=== PATIENT | female | born 1990 | race Caucasian/White ===

== ENCOUNTER 2021-09-10 15:36 | Inpatient (IN) | payer OTHER, SELFPAY ==
[~2021-09-10] VITALS: Ht 157.5 cm; Wt 51.7 kg
[2021-09-10] MEDS: NACL 0.9% 1,000 ML IV SCH (03:55)
[2021-09-10 15:41] VITALS: BP 148/103
[2021-09-10] MEDS ORDERED: NACL 0.9% 1,000 ML IV SCH (16:20)
[2021-09-10] MEDS ORDERED: ONDANSETRON 4 MG/2 ML VIAL IVP ONE (16:20)
--- NOTE | 2021-09-10 16:27 | NUR ---
DC PLANNIN YRS OLD FEMALE PATIENT WAS ADMITTED FROM HOME WITH A DX OF DKA. PATIENT HAS A HX OF DM ON LANTUS, ANION GAP 38.5. ADMITTED TO ICU FOR INSULIN DRIP. CONSULTED WITH CRITICAL CARE. DC PLAN TO DOWN GRADE TO TELE WHEN AG CLOSED. CM TO FOLLOW Addendum: 09/13/21 at 1647 by Ivania Inman RN DC PLANNING: PATIENT OFF INSULIN DRIP TRANSFERRED TO TELE AG 11.[address] BOWEN SOURCING SPECIALIST TO SEE PATIENT. CONTINUE IV ABX LEVAQUIN AND FLAGYL. DC PLAN TO GO HOME WHEN STABLE CM TO FOLLOW Addendum: 09/17/21 at 1132 by Malika Vidal CM DC PLANNING: CM SPOKE WITH THE PATIENT AT BEDSIDE, STATES THAT SHE AND HER MOTHER ARE CURRENTLY SLEEPING ON THE COUCH OF A FRIEND X 1 MONTH. WILL BE STAYING IN A MOTEL ROOM [facility] PATIENT IS DECLINING HOME HEALTH FOR WOUND CARE. SHE STATES THAT THE WOUND CARE NURSE PEMA HAS ALREADY SHOWED HER TODAY AND THAT SHE HAS WOUND ARE SUPPLIES FROM A PREVIOUS VISIT AND THIS VISIT. SHE STATES THAT SHE AND HER MOTHER ARE COMFORTABLE AND CAPABLE OF DOING HER WOUND CARE, STATED AGAIN THAT SHE DOESN'T WANT HOME HEALTH THE PEOPLE SHE IS STAYING WITH WOULDN'T LIKE IT. CM WILL FOLLOW FOR NEEDS.
[2021-09-10] MEDS ORDERED: NACL 0.9% 1,000 ML IV ONE (16:50)
[2021-09-10 17:19] LABS: HEMATOCRIT 40.7 % (36-48); HEMOGLOBIN 11.9 g/dL (12.0-16.0); MEAN CORPUSCULAR HEMOGLOBIN 28 pg (27-31); MEAN CORPUSCULAR HGB CONC 29 g/dL (33-37); MEAN CORPUSCULAR VOLUME 97.1 fL (80-94); RED BLOOD CELL COUNT(AUTO) 4.19 MIL/uL (4.20-5.40); RED CELL DISTRIBUTION WIDTH 15.1 % (11.6-13.7)
--- NOTE | 2021-09-10 17:21 | NUR ---
DR MARTIN AT BEDSIDE FOR IV VIA ULTRASOUND.
[2021-09-10 17:42] LABS: ALBUMIN 1.6 g/dL (3.4-5.0); POTASSIUM 5.7 mmol/L (3.5-5.1); TOTAL BILIRUBIN 0.3 mg/dL (0.0-1.0)
[2021-09-10 17:52] LABS: ANION GAP 38.5 (8-16)
[2021-09-10 17:54] LABS: CARBON DIOXIDE 3.2 mmol/L (21-32)
--- NOTE | 2021-09-10 18:02 | NUR ---
31 Y/O F C/O GENERAL WEAKNESS, ANIETY, SOB FOR 4DAYS. PT HS A PRESENT COUGH, BUT NO FEVER. PT BLOOD GLUCOSE TO HIGH UPON ARIVAL.
[2021-09-10] MEDS ORDERED: ONDANSETRON 4 MG/2 ML VIAL ONE (18:09)
[2021-09-10] MEDS ORDERED: INSULIN REGULAR, HUMAN 100 UNIT in NACL 0.9% 100 ML IV ONE ×2 (18:15)
[2021-09-10] MEDS ORDERED: INSULIN REGULAR, HUMAN 100 UNIT/ML VIAL IVP ONE (18:15)
[2021-09-10] MEDS ORDERED: MORPHINE SULFATE 4 MG/ML SYR IVP ONE (18:15)
--- NOTE | 2021-09-10 18:24 | NUR ---
YULI SWAB WAS DONE AND TAKEN TO THE LAB.
[2021-09-10 18:51] LABS: WHITE BLOOD COUNT (AUTO) 26.4 K/uL (4.8-10.8)
[2021-09-10 18:52] LABS: PLATELET COUNT (AUTO) 1639 K/uL (140-450)
[2021-09-10 18:56] LABS: APPEARANCE,URINE CLEAR (CLEAR); BILIRUBIN,URINE NEGATIVE (NEGATIVE); BLOOD, URINE 3+ (NEGATIVE); LEUKOCYTE ESTERASE ,URINE TRACE (NEGATIVE); NITRITE, URINE NEGATIVE (NEGATIVE); UGLUCOSE 3+ (NEGATIVE)
[2021-09-10] MEDS ORDERED: VANCOMYCIN 1,000 MG in DEXTROSE 5% 250 ML IV ONE (19:05)
[2021-09-10] MEDS ORDERED: PIPERACILLIN/TAZOBACTAM 3.375 GM in DEXTROSE 5% 50 ML IV ONE (19:05)
--- NOTE | 2021-09-10 19:15 | NUR ---
RECEIVED REPORT FROM JAMAAL KAM FOR CONTINUITY OF CARE
--- NOTE | 2021-09-10 19:22 | NUR ---
GAVE REPORT TO KATHARINE SANTOS.
--- NOTE | 2021-09-10 19:22 | NUR ---
Contact Kendra mother of patient through #[phone]
[2021-09-10 19:27] LABS: BASOPHILS % (MANUAL) 0 % (0-2); EOSINOPHILS % (MANUAL) 0 % (0-4); LYMPHOCYTES % (MANUAL) 4 % (20-46); MONOCYTES % (MANUAL) 2 % (5-12)
--- NOTE | 2021-09-10 19:37 | NUR ---
PATIENT TO XR VIA GURNEY
[2021-09-10 19:40] LABS: COLOR,URINE STRAW (YELLOW); RBC,URINE 0-5 /HPF (0-5); WBC,URINE 20-60 /HPF (0-5); YEAST,URINE Moderate /HPF (None Seen)
[2021-09-10] MEDS ORDERED: ACETAMINOPHEN 325 MG TAB PO PRN (19:50)
--- NOTE | 2021-09-10 19:53 | NUR ---
sent a message to Meredith GOSS for diet for patient.
[2021-09-10] MEDS ORDERED: DEXTROSE 50% 50 ML SYR IVP PRN (19:55)
[2021-09-10] MEDS ORDERED: INSULIN REGULAR, HUMAN 100 UNIT in NACL 0.9% 100 ML IV SCH ×2 (19:55)
--- NOTE | 2021-09-10 20:00 | NUR ---
Unable to medicate patient through line as insulin drip going through line. difficulty finding a vein on patient, requesting MD Mcdonough to order a PICC line.
--- NOTE | 2021-09-10 20:07 | NUR ---
Requested orders on a picc line from MD Mcdonough and agreed
--- NOTE | 2021-09-10 20:09 | NUR ---
Called limehouse worker for a PICC line on for a patient
[2021-09-10] MEDS: BLOOD GLUCOSE MONITORING 1 DEV DEV FS SCH ×4 (20:14→23:18)
[2021-09-10 20:33] LABS: FREE T4 (FREE THYROXINE) 0.72 ng/dL (0.76-1.46); THYROID STIMULATING HORMONE 1.61 uIU/mL (0.34-3.74)
--- NOTE | 2021-09-10 21:41 | NUR ---
Livan Mcdonough MD-- will call back shortly
--- NOTE | 2021-09-10 21:50 | NUR ---
Received call from MD chapman to report findings on VBG-- orders received for VBG Q4hrs, and NS 1000ml at 125ml.
[2021-09-10] MEDS: MORPHINE SULFATE 2 MG/ML SYR IVP PRN (23:17)
[2021-09-10] MEDS: ONDANSETRON 4 MG/2 ML VIAL IVP PRN (23:17)
--- NOTE | 2021-09-10 23:52 | NUR ---
Patient appears to be resting comfortably in bed-- low fowlers, eyes closed. Vital Signs within normal limits. Respirations even and unlabored. No signs of distress noted. Patient placed on environmental monitoring technician, safety measures are in place, and will continue to monitor patient. Insulin drip running through IV
[2021-09-11] VITALS (10 sets, daily range): BP systolic 15–169; BP diastolic 74–98
[2021-09-11] MEDS: BLOOD GLUCOSE MONITORING 1 DEV DEV FS SCH ×25 (00:06→23:55)
[2021-09-11 00:57] LABS: ANION GAP 18.9 (8-16); CARBON DIOXIDE 16.6 mmol/L (21-32); CREATININE 1.4 mg/dL (0.6-1.3); POTASSIUM 4.5 mmol/L (3.5-5.1)
[2021-09-11 00:59] LABS: PROTHROMBIN TIME 14.4 secs (10.8-13.4)
[2021-09-11 01:02] LABS: PHOSPHORUS 4.1 mg/dL (2.5-4.9)
--- NOTE | 2021-09-11 02:02 | NUR ---
Patient appears to be resting comfortably in bed. Vital Signs within normal limits. Respirations even and unlabored. No signs of distress noted. 0/10 pain. Safety measures are in place, patient on the monitors, and will continue to monitor patient.
[2021-09-11] MEDS ORDERED: VANCOMYCIN 1,000 MG VIAL ONE (02:04)
--- NOTE | 2021-09-11 02:15 | NUR ---
Pt report given to Amina SANTOS. Transfer of care at this time during lunch break
[2021-09-11] MEDS ORDERED: BIOT5CAP PO (02:29)
[2021-09-11] MEDS ORDERED: TRAZ-343 PO (02:29)
[2021-09-11] MEDS ORDERED: INSU100S22 SUBQ (02:29)
[2021-09-11] MEDS ORDERED: HUM7525 SUBQ (02:29)
[2021-09-11] MEDS ORDERED: LISI2.5T12 PO (02:29)
[2021-09-11] MEDS ORDERED: PROM6.2555 PO (02:29)
[2021-09-11] MEDS ORDERED: CLIN150C1 PO (02:29)
--- NOTE | 2021-09-11 03:20 | NUR ---
morro Mcdonough for patient-- will call back shortly Addendum: 09/11/21 at 0406 by AVTAR to clarify diet, inform VBG, and Question maintenance fluids
--- NOTE | 2021-09-11 03:43 | NUR ---
patient feeling weak, shaky, and "i can feel my blood dropping this is what it normally feels like when it does."-- gave a 10cc of apple juice. Addendum: 09/11/21 at 0354 by MEDBattlepro patient denied apple juice and provided OJ 10cc. patient tolerated well and reports "i feel so much better"
[2021-09-11] MEDS ORDERED: PIPERACILLIN/TAZOBACTAM 3.375 GM VIAL IV ONE (05:10)
[2021-09-11 05:19] LABS: BASOPHILS # (AUTO) 0.1 K/uL (0.00-0.22); BASOPHILS % (AUTO) 0.6 % (0.0-2.0); EOSINOPHILS # (AUTO) 0.1 K/uL (0-0.4); EOSINOPHILS % (AUTO) 0.5 % (0.0-4.0); HEMATOCRIT 27.6 % (36-48); LYMPHOCYTES # (AUTO) 2.6 K/uL (2.5-16.5); LYMPHOCYTES % (AUTO) 16.2 % (20.5-51.1); MEAN CORPUSCULAR HEMOGLOBIN 28 pg (27-31); MEAN CORPUSCULAR HGB CONC 33 g/dL (33-37); MEAN CORPUSCULAR VOLUME 85.3 fL (80-94); MONOCYTES # (AUTO) 0.8 K/uL (0.8-1.0); MONOCYTES % (AUTO) 5.3 % (1.7-9.3); NEUTROPHILS # (AUTO) 12.3 K/uL (1.8-7.7); NEUTROPHILS % (AUTO) 77.4 % (42.2-75.2); PLATELET COUNT (AUTO) 912 K/uL (140-450); RED BLOOD CELL COUNT(AUTO) 3.24 MIL/uL (4.20-5.40); RED CELL DISTRIBUTION WIDTH 13.5 % (11.6-13.7); WHITE BLOOD COUNT (AUTO) 15.9 K/uL (4.8-10.8)
[2021-09-11] MEDS: MORPHINE SULFATE 2 MG/ML SYR IVP PRN ×3 (05:27→19:45)
[2021-09-11] MEDS: ONDANSETRON 4 MG/2 ML VIAL IVP PRN (05:27)
--- NOTE | 2021-09-11 05:39 | NUR ---
provided 25cc OJ and crackers.
[2021-09-11 05:46] LABS: ANION GAP 19.2 (8-16); CARBON DIOXIDE 17.4 mmol/L (21-32); CREATININE 1.3 mg/dL (0.6-1.3); POTASSIUM 4.6 mmol/L (3.5-5.1)
[2021-09-11 05:49] LABS: MAGNESIUM 1.9 mg/dL (1.8-2.4); PHOSPHORUS 3.8 mg/dL (2.5-4.9)
--- NOTE | 2021-09-11 05:53 | NUR ---
pictures taken on wound of the right buttock
--- NOTE | 2021-09-11 06:14 | NUR ---
paged MD Mcdonough for patient-- will call back shortly
[2021-09-11] MEDS: NACL 0.9% 1,000 ML IV SCH (06:57)
--- NOTE | 2021-09-11 07:05 | NUR ---
Held insulin drip. BG low-- patient experiencing weakness, shakiness, hunger, thirst, and reports "i can feel my blood sugar dropping because this is normally what i feel when it drops"
--- NOTE | 2021-09-11 07:23 | NUR ---
Pt report given to Venecia KAM. Transfer of care at this time.
--- NOTE | 2021-09-11 07:35 | NUR ---
Pt report given to IRISH MOSS OPERATOR JOBY. Transfer of care at this time.
--- NOTE | 2021-09-11 08:00 | NUR ---
RECEIVED FROM ER, SHEIS AWAKE AND ALERT FOLLOW COMMAND.SKIN DRY AND WARM TO TOUCH COLOR PALE .TV SIDRE ON LEFT ARM INFUSING NS AT 125ML/HR INSULIN IV DRIP HAS BEEN STOP. SKIN INTACT.
--- NOTE | 2021-09-11 08:06 | NUR ---
PATIENT HAS BEEN SCREENED AND CATEGORIZED HIGH NUTRITION RISK. PATIENT WILL BE SEEN WITHIN 1-2 DAYS OF ADMISSION. 09/11/21-09/12/[address]
[2021-09-11] MEDS: DEXT 5% / NACL 0.45% 1,000 ML IV SCH ×3 (08:45→21:43)
[2021-09-11 08:57] LABS: ANION GAP 20.1 (8-16); CARBON DIOXIDE 16.3 mmol/L (21-32); CREATININE 1.3 mg/dL (0.6-1.3); POTASSIUM 4.4 mmol/L (3.5-5.1)
--- NOTE | 2021-09-11 12:00 | NUR ---
BLOOD CLUCOSE 118 INSULIN DRIP STARTED ORDERED.
[2021-09-11 13:34] LABS: PHOSPHORUS 3.6 mg/dL (2.5-4.9)
--- NOTE | 2021-09-11 14:31 | NUR ---
C/O PAIN INHER MOUTH AND RECTUM 9/10 MED GAVE ORDERED.
--- NOTE | 2021-09-11 17:00 | NUR ---
SEEN BY DR MAURICIO DING RECEIVED.
[2021-09-11] MEDS ORDERED: lisinopriL 5 MG TAB PO SCH (17:41)
[2021-09-11] MEDS ORDERED: levETIRAcetam 500 MG TAB PO SCH (17:45)
[2021-09-11] MEDS ORDERED: amLODIPine 5 MG TAB PO ONE (17:55)
[2021-09-11] MEDS: LEVOFLOXACIN 500 MG/D5W PREMIX 100 ML IV SCH (18:00)
[2021-09-11] MEDS ORDERED: traZODone 50 MG TAB PO PRN ×2 (18:05→18:16)
--- NOTE | 2021-09-11 18:45 | NUR ---
SEEN BY DR. SCHUMACHER AT BED SIDE ORDER RECEIVED,
[2021-09-11 19:23] LABS: ANION GAP 14.3 (8-16); CARBON DIOXIDE 17.8 mmol/L (21-32); CREATININE 1.2 mg/dL (0.6-1.3); POTASSIUM 4.1 mmol/L (3.5-5.1)
--- NOTE | 2021-09-11 19:30 | NUR ---
RECEIVED REPORT FROM DAY SHIFT NURSE, ASSUMED CARE. PATIENT OBSERVED AWAKE AND ALERT X4 IN BED IN NO ACUTE DISTRESS. RUNNING INSULIN DRIP I UNIT/ HR AND D5 NS 0.45 100 ML/HR VIA LEFT AC 18 GAUGE, IV SITE DRY, INTACT AND PATENT. BILATERAL CLEAR LUNG SOUNDS HEARD UPON AUSCULTATION. BREATHING AT RA. ACTIVE BOWEL SOUNDS IN ALL 4 QUADRANTS. SKIN INTACT. PATIENT C/O HEMORRHOID DISCOMFORT, OBSERVED REDNESS AND SWOLLEN SITE WITH DISCHARGE ON RIGHT BUTTOCKS/RECTUM AREA. PATIENT ALSO WITH C/O MOUTH PAIN DUE TO NEEDED DENTAL WORK. REQUESTED PAIN MEDICATION AND ADMINISTERED. ALL SAFETY MEASURES IN PLACE, WILL CONTINUE TO MONITOR AND FOLLOW POC.
--- NOTE | 2021-09-11 19:30 | NUR ---
PT AWAKE ALERT HAVE HER DINNER , NO COMPLAIN , REPORT GIVE TO RD.
--- NOTE | 2021-09-11 19:56 | NUR ---
1949 PATIENT REFUSED VBG/ABG AT THIS TIME
--- NOTE | 2021-09-11 21:34 | NUR ---
CALLED GRAPHITE GRINDER JUAN TO FOLLOW UP ON PICC LINE INSERTION SCHEDULED ON 09/10/21. WAS GIVEN THE NUMBER TO CALL AND FOLLOW UP WITH AT . CALLED AND LEFT A DETAILED MESSAGE REGARDING PENDING PICC LINE INSERTION WITH SIGNED CONSENT ON FILE, PROVIDED ICU CALL BACK DIRECT NUMBER. WILL CONTINUE TO FOLLOW UP.
--- NOTE | 2021-09-11 22:50 | NUR ---
MANAGER SUPPORT AT BEDSIDE DOING FINGERSTICK FOR SCHEDULED LAB WORK.
--- NOTE | 2021-09-11 23:30 | NUR ---
PATIENT ASSISTED WITH BEDPAN, VOIDED 1000 ML. PATIENT IN NO APPARENT ACUTE DISTRESS. WILL CONTINUE TO MONITOR AND FOLLOW POC.
[2021-09-11 23:32] LABS: ANION GAP 14.3 (8-16); CARBON DIOXIDE 19.8 mmol/L (21-32); CREATININE 1.1 mg/dL (0.6-1.3); POTASSIUM 4.1 mmol/L (3.5-5.1)
[2021-09-12] VITALS (15 sets, daily range): BP systolic 99–153; BP diastolic 64–101
[2021-09-12] MEDS: MORPHINE SULFATE 2 MG/ML SYR IVP PRN ×6 (01:00→22:22)
--- NOTE | 2021-09-12 01:00 | NUR ---
PATIENT WITH COMPLAINT OF HEMORRHOID AND DENTAL PAIN, REQUESTED PAIN MEDICATION. MORPHINE ADMINISTERED PER PRN ORDERS. PATIENT IN NO APPARENT ACUTE DISTRESS. WILL CONTINUE TO MONITOR AND FOLLOW POC.
[2021-09-12] MEDS: BLOOD GLUCOSE MONITORING 1 DEV DEV FS SCH ×13 (01:55→21:19)
--- NOTE | 2021-09-12 02:49 | NUR ---
PATIENT OBSERVED SLEEPING WITH EYES CLOSED. RUNNING D5 1/2 NS 100ML/HR AND INSULIN DRIP 1 UNIT/HR VIA LEFT ARM 18 GAUGE. NO SIGNS OF ACUTE DISTRESS AT THIS TIME. WILL CONTINUE TO MONITOR AND FOLLOW POC.
--- NOTE | 2021-09-12 04:20 | NUR ---
PATIENT REFUSED SHOW GIRL TO DRAW BLOOD FOR DAILY LAB VALUES.
--- NOTE | 2021-09-12 04:23 | NUR ---
BS ACCUCHECKS DONE Q2HR PER PROTOCOL AFTER 4 CONSECUTIVE WNL BS LEVELS.
--- NOTE | 2021-09-12 05:30 | NUR ---
ADMINISTERED MORPHINE PRN FOR PAIN, PATIENT WITH C/O HEMORRHOID AND MOUTH PAIN RATES 9/10. PATIENT TOLERATED WELL. NO SIGNS OF ACUTE DISTRESS. WILL CONTINUE TO MONITOR AND FOLLOW POC.
[2021-09-12] MEDS ORDERED: BLOOD GLUCOSE MONITORING 1 DEV DEV FS SCH ×2 (07:25→08:45)
--- NOTE | 2021-09-12 07:29 | NUR ---
GAVE REPORT TO DAY SHIFT NURSE, ENDORSED CARE. PATIENT IN STABLE CONDITION IN NO APPARENT ACUTE DISTRESS.
--- NOTE | 2021-09-12 07:30 | NUR ---
REPORT RECEIVED FROM PM SHIFT RN FOR CONTINUITY OF CARE. PT IS A&OX4. ABLE TO MAKE NEEDS KNOWN. ON ROOM AIR. SR ON MONITOR. LUNG SOUNDS CLEAR. IV SITE, LT AC 18 G INFUSING INSULIN 1 UNIT/HR AND D5 1/2 NS AT 100 ML/HR. SKIN WARM AND DRY, INTACT. HOB 30 DEGREES. BED LOCKED IN LOWEST POSITION. SAFETY PRECAUTIONS IN PLACE. WILL CONTINUE TO MONITOR.
[2021-09-12] MEDS ORDERED: CRUSHER, PILL MC ONE (08:03)
[2021-09-12] MEDS: levETIRAcetam 500 MG TAB PO SCH ×2 (08:23→21:22)
[2021-09-12] MEDS: PROMETHAZINE 6.25 MG/5 ML ORASYR PO SCH (08:23)
[2021-09-12] MEDS: DEXT 5% / NACL 0.45% 1,000 ML IV SCH (08:24)
[2021-09-12 08:43] LABS: ANION GAP 13.8 (8-16); CARBON DIOXIDE 17.7 mmol/L (21-32); CREATININE 0.9 mg/dL (0.6-1.3); POTASSIUM 3.5 mmol/L (3.5-5.1)
--- NOTE | 2021-09-12 08:45 | NUR ---
BLOOD GLUCOSE CHECK 98
[2021-09-12] MEDS: lisinopriL 5 MG TAB PO SCH (09:00)
[2021-09-12] MEDS: amLODIPine 5 MG TAB PO SCH (09:00)
[2021-09-12] MEDS ORDERED: CLINDAMYCIN 150 MG CAP PO SCH (09:00)
[2021-09-12] MEDS ORDERED: lisinopriL 5 MG TAB PO SCH (09:00)
--- NOTE | 2021-09-12 10:30 | NUR ---
PT EATING BREAKFAST TRAY
--- NOTE | 2021-09-12 10:56 | NUR ---
PICC LINE NURSE AT BEDSIDE FOR PICC LINE INSERTION
--- NOTE | 2021-09-12 11:15 | NUR ---
XRAY AT BEDSIDE
--- NOTE | 2021-09-12 11:56 | NUR ---
PT REFUSING LAB DRAWS.
--- NOTE | 2021-09-12 12:26 | NUR ---
09/12/21 RD INITIAL ASSESSMENT COMPLETED PLEASE REFER TO NUTRITION ASSESSMENT UNDER CARE ACTIVITY FOR ESTIMATED NUTRITIONAL NEEDS. 1. CONTINUE RENAL DIET TOLERATED 2. RD TO FOLLOW-UP 3-5 DAYS, MODERATE RISK REVIEWED BY BRITTA VÁSQUEZ RD Addendum: 09/13/21 at [address] RD TO F/U 2-3 DAYS, HR
--- NOTE | 2021-09-12 13:00 | NUR ---
PT EATING LUNCH TRAY
[2021-09-12 14:09] LABS: ANION GAP 16.3 (8-16); CARBON DIOXIDE 19.4 mmol/L (21-32); CREATININE 0.9 mg/dL (0.6-1.3); POTASSIUM 3.7 mmol/L (3.5-5.1)
--- NOTE | 2021-09-12 14:58 | NUR ---
PT HAD 1 VOID
[2021-09-12 16:01] LABS: ANION GAP 12.3 (8-16); CARBON DIOXIDE 19.1 mmol/L (21-32); CREATININE 0.9 mg/dL (0.6-1.3); POTASSIUM 3.4 mmol/L (3.5-5.1)
--- NOTE | 2021-09-12 16:45 | NUR ---
ACCU CHECK 148
[2021-09-12] MEDS: POTASSIUM CHLORIDE 10 MEQ TABER PO PRN (16:48)
--- NOTE | 2021-09-12 17:51 | NUR ---
DR MARTÍNEZ AT BEDSIDE EXAMINING PT
[2021-09-12] MEDS ORDERED: SODIUM BICARBONATE 8.4% PFS 50 MEQ/50 ML SYR IVP ONE (17:55)
[2021-09-12] MEDS: LEVOFLOXACIN 500 MG/D5W PREMIX 100 ML IV SCH (17:56)
[2021-09-12] MEDS ORDERED: SODIUM BICARBONATE 8.4% PFS 50 MEQ/50 ML SYR IVP SCH (18:00)
--- NOTE | 2021-09-12 18:00 | NUR ---
PER DR MARTÍNEZ TURN OFF INSULIN DRIP AND D/C DKA PROTOCOL ONCE ANION GAP IS LESS THAN 12. THEN, START ON LANTUS 26 UNITS HS.
--- NOTE | 2021-09-12 18:37 | NUR ---
PT EATING DINNER TRAY
--- NOTE | 2021-09-12 19:05 | NUR ---
REPORT GIVEN TO PM SHIFT RN FOR CONTINUITY OF CARE
[2021-09-12 20:28] LABS: CARBON DIOXIDE 23.9 mmol/L (21-32); CREATININE 0.9 mg/dL (0.6-1.3); POTASSIUM 3.9 mmol/L (3.5-5.1)
--- NOTE | 2021-09-12 23:47 | NUR ---
PATIENT ALERT ORIENT NO COMPLAINING OF PAIN AT THIS TIME VITALS SIGNS IN NORMAL LIMITS WE STOP THE INSULINE DRIP BECAUSE THE GAP WENT BELOW 12 WE START DE ISULINE LANTUS AND THE SLIDING SCHEDULE
[2021-09-13] VITALS (8 sets, daily range): BP systolic 128–160; BP diastolic 60–104
[2021-09-13] MEDS: DEXT 5% / NACL 0.45% 1,000 ML IV SCH ×3 (00:50→21:42)
--- NOTE | 2021-09-13 00:52 | NUR ---
PATIENT SLEEPING AT THIS TIME VITALS SIGNS IN NORMAL LIMITS NO COMPLAINING OF PAIN
[2021-09-13] MEDS: MORPHINE SULFATE 2 MG/ML SYR IVP PRN ×5 (02:28→21:59)
--- NOTE | 2021-09-13 03:34 | NUR ---
PATIENT SLEEPING AT THIS TIME VITALS SIGN IN NORMAL LIMITS
[2021-09-13] MEDS: BLOOD GLUCOSE MONITORING 1 DEV DEV FS SCH ×4 (05:50→21:58)
[2021-09-13 05:59] LABS: POTASSIUM 4.1 mmol/L (3.5-5.1)
[2021-09-13] MEDS: INSULIN LISPRO SLIDING SCALE 100 UNITS/ML VIAL SUBQ PRN ×3 (06:05→21:53)
[2021-09-13 06:11] LABS: ANION GAP 11.6 (8-16); CARBON DIOXIDE 22.5 mmol/L (21-32)
--- NOTE | 2021-09-13 07:12 | NUR ---
PATIENT ALERT ORIENTED NO COMPLAINING OF PAIN AFTER WE GAVE MORPHINE 2 MG VITALS SIGNS IN NORMAL LIMITS LAST ACCUTE CHECK WAS 339 I COVERED WITH 8 UNITS OF LISPRO BY SLIDING SCHEDULE SR 89 0N MONITOR
--- NOTE | 2021-09-13 07:45 | NUR ---
RECEIVED REPORT FROM ICU NURSE FOR CONTINUITY OF CARE.
--- NOTE | 2021-09-13 08:06 | NUR ---
PT TRANSPORTED TO [facility] BED 119A. BREATHING SYMMETRICAL. NO S/S OF DISTRESS. PT STABLE. CALL LIGHT IN REACH. ALL SAFETY MEASURES IN PLACE.
[2021-09-13] MEDS: levETIRAcetam 500 MG TAB PO SCH ×2 (09:29→21:41)
[2021-09-13] MEDS: lisinopriL 5 MG TAB PO SCH (09:31)
[2021-09-13] MEDS: amLODIPine 5 MG TAB PO SCH (09:31)
--- NOTE | 2021-09-13 09:44 | NUR ---
FOLLOWED UP WITH PHARMACY FOR MISSING MEDICATION. PHARMACY TO BRING
--- NOTE | 2021-09-13 09:50 | NUR ---
SPOKE WITH PULMOLOGIST DR. MARTÍNEZ. SURGICAL WOUND CONSULT AND NPO DIET TO BE ORDERED FOR ABCESS.
[2021-09-13] MEDS: PROMETHAZINE 6.25 MG/5 ML ORASYR PO SCH (09:51)
--- NOTE | 2021-09-13 09:51 | NUR ---
PT POTASSIUM WNL, KDUR WAS OPENED AND DISPOSED OF IN MED BIN. RETURNED DROPPED MED.
[2021-09-13] MEDS ORDERED: hydrALAZINE 20 MG/ML VIAL ONE (10:07)
--- NOTE | 2021-09-13 11:26 | NUR ---
WOUND CULTURE OBTAINED AND WOUND CLEANED AND DRESSED WITH PADDED DRESSING. PT TOLERATED WELL. PT GOWN CHANGED
[2021-09-13] MEDS ORDERED: INSULIN LISPRO 100 UNITS/ML VIAL SUBQ SCH (11:30)
[2021-09-13] MEDS: POTASSIUM CHLORIDE 10 MEQ TABER PO PRN (11:38)
--- NOTE | 2021-09-13 11:45 | NUR ---
PT BG WAS 57. PT GIVEN OJ, WILL REASSESS. NO S/S OF DISTRESS. CALL LIGHT IN REACH. ALL SAFETY MEASURES IN PLACE Addendum: 09/13/21 at 1252 by Trudi Mckee RN RN PT NOW 105. MEDICATION HELD PER PARAMETERS. WILL CONTINUE TO MONITOR
[2021-09-13] MEDS: metroNIDAZOLE 500 MG/NS PREMIX 100 ML IV SCH ×2 (13:45→21:41)
[2021-09-13 14:14] LABS: ANION GAP 5.2 (8-16); CARBON DIOXIDE 22.1 mmol/L (21-32); CREATININE 0.7 mg/dL (0.6-1.3); POTASSIUM 4.3 mmol/L (3.5-5.1)
--- NOTE | 2021-09-13 14:23 | NUR ---
WOUND CARE NURSE CLEANED AND REDRESSED WOUND. PT TOLERATED WELL
--- NOTE | 2021-09-13 14:46 | NUR ---
WOUND CARE EVALUATION NOTE: WOUND ASSESSMENT DONE WITH THIS 31 Y/O PT. PT. ADMITTED WITH INFECTED WOUND TO RIGHT INNER BUTTOCK. PT IS AAX4. PER PT. SHE HAS HX OF ABSCESS TO BUTTOCKS. RIGHT INNER BUTTOCK FULL THICKNESS SKIN LOSS 4X3X0.3CM WITH 100% YELLOW SLOUGH TO WOUND BED, SMALL AMOUNT PURULENT DRAINAGE, MILD ODOR, PAINT 4/10 AND VERY SENSITIVE TO TOUCH. POC DISCUSSED WITH PT. PT. VERBALIZES UNDERSTANDING. RECOMMENDATIONS: -SURGEON CONSULT -CLEANSE RIGHT BUTTOCK WITH NS, PAT DRY, APPLY SILVASORB GEL TO WOUND BED AND COVER WITH ISLAND DRESSING QD AND PRN IF SOILING.
[2021-09-13] MEDS: LEVOFLOXACIN 500 MG/D5W PREMIX 100 ML IV SCH (17:48)
--- NOTE | 2021-09-13 17:49 | NUR ---
PT COMPLAINED OF PAIN 05/08. PT MEDICATED PER MD ORDER. PT VERBALIZED UNDERSTANDING OF EDUCATION. CALL LIGHT IN REACH. ALL SAFETY MEASURES IN PLACE
[2021-09-13 18:08] LABS: ANION GAP 5.7 (8-16); CARBON DIOXIDE 24.7 mmol/L (21-32); CREATININE 0.9 mg/dL (0.6-1.3); POTASSIUM 4.4 mmol/L (3.5-5.1)
--- NOTE | 2021-09-13 19:38 | NUR ---
ENDORSED PT TO WEAPONS OFFICER NURSE. NO S/S OF DISTRESS. BREATHING SYMMETRICAL. CALL LIGHT IN REACH ALL SAFETY MEASURES IN PLACE. IV RUNNING PER MD ORDER
--- NOTE | 2021-09-13 19:39 | NUR ---
RECEIVED REPORT FROM AM NURSE. PATIENT IS AWAKE RESTING IN BED. NO ACUTE DISTRESS NOTED. BREATHING REGULAR UNLABORED. IVF D51/2 NS AT 100 ML/HR. NO COMPLAINTS OF PAIN AT THIS TIME. SAFETY MEASURES IN PLACE. CALL LIGHT WITHIN REACH. WILL CONTINUE TO MONITOR.
[2021-09-13 20:57] LABS: ANION GAP 7.6 (8-16); CARBON DIOXIDE 24.7 mmol/L (21-32); CREATININE 0.9 mg/dL (0.6-1.3); POTASSIUM 4.3 mmol/L (3.5-5.1)
[2021-09-13] MEDS ORDERED: INSULIN LANTUS 100 UNITS/ML 10 ML VIAL SUBQ SCH (21:00)
--- NOTE | 2021-09-13 21:41 | NUR ---
SCHEDULED MEDS GIVEN ORDERED.
--- NOTE | 2021-09-13 21:45 | NUR ---
PATIENT CLEANED AND CHANGED. NEEDS MET.
--- NOTE | 2021-09-13 21:59 | NUR ---
COMPLAINED OF SEVERE PAIN ON THE RIGHT BUTT. MEDICATED.
[2021-09-14] VITALS: BP 143/104
[2021-09-14] MEDS: MORPHINE SULFATE 2 MG/ML SYR IVP PRN ×4 (02:49→21:02)
--- NOTE | 2021-09-14 02:49 | NUR ---
COMPLAINED OF SEVERE PAIN. PRN MEDS GIVEN PER MD ORDERED AND WAS RELIEVED AFTER. CALL LIGHT WITHIN REACH.
[2021-09-14 04:00] VITALS: BP 159/99
[2021-09-14] MEDS: metroNIDAZOLE 500 MG/NS PREMIX 100 ML IV SCH ×3 (05:08→20:23)
--- NOTE | 2021-09-14 05:27 | NUR ---
NPO POST MIDNIGHT OBSERVED
[2021-09-14 05:46] LABS: BASOPHILS # (AUTO) 0.1 K/uL (0.00-0.22); BASOPHILS % (AUTO) 0.9 % (0.0-2.0); EOSINOPHILS # (AUTO) 0.1 K/uL (0-0.4); EOSINOPHILS % (AUTO) 2.3 % (0.0-4.0); HEMOGLOBIN 8.1 g/dL (12.0-16.0); LYMPHOCYTES # (AUTO) 2.6 K/uL (2.5-16.5); LYMPHOCYTES % (AUTO) 41.4 % (20.5-51.1); MEAN CORPUSCULAR HEMOGLOBIN 29 pg (27-31); MEAN CORPUSCULAR HGB CONC 34 g/dL (33-37); MEAN CORPUSCULAR VOLUME 84.6 fL (80-94); MONOCYTES # (AUTO) 0.5 K/uL (0.8-1.0); MONOCYTES % (AUTO) 8.1 % (1.7-9.3); NEUTROPHILS % (AUTO) 47.3 % (42.2-75.2); PLATELET COUNT (AUTO) 884 K/uL (140-450); RED BLOOD CELL COUNT(AUTO) 2.84 MIL/uL (4.20-5.40); RED CELL DISTRIBUTION WIDTH 13.4 % (11.6-13.7); WHITE BLOOD COUNT (AUTO) 6.3 K/uL (4.8-10.8)
[2021-09-14] MEDS: DEXT 5% / NACL 0.45% 1,000 ML IV SCH ×2 (06:45→16:45)
--- NOTE | 2021-09-14 07:30 | NUR ---
PATIENT WAS PICKED UP BY OR STAFF FOR I&D.
[2021-09-14] MEDS ORDERED: GELATIN SPONGE 100 1 SPG TP ONE (07:34)
[2021-09-14] MEDS ORDERED: BUPIVACAINE-MPF/EPI 0.25% 30 ML VIAL INJ ONE (07:34)
[2021-09-14] MEDS ORDERED: LIDOCAINE 1% 500 MG/50 ML VIAL ONE (07:34)
[2021-09-14] MEDS ORDERED: HYDROGEN PEROXIDE 3% 240 ML BTL TP ONE (07:35)
--- NOTE | 2021-09-14 07:35 | NUR ---
ENDORSED TO AM NURSE THAT PT WAS BROUGHT TO ER FOR I&D.
--- NOTE | 2021-09-14 07:35 | NUR ---
RECEIVED REPORT FROM PM SHIFT RN FOR CONTINUITY OF CARE. PER REPORT PT. ALREADY TAKEN TO OR @ 7310 . WILL FOLLOW UP AFTER PT. COME BACK AFTER SURGERY (I&D).
[2021-09-14] MEDS ORDERED: PROPOFOL 200 MG/20 ML VIAL IV ONE (07:40)
[2021-09-14] MEDS ORDERED: KETAMINE 500 MG/5 ML VIAL ONE (07:41)
[2021-09-14] MEDS ORDERED: MIDAZOLAM 2 MG/2 ML VIAL ONE ×2 (07:41→08:34)
[2021-09-14] MEDS: BLOOD GLUCOSE MONITORING 1 DEV DEV FS SCH ×4 (07:50→20:54)
[2021-09-14] MEDS ORDERED: HYDROcodone/APAP 5/325 MG 1 TAB TAB PO PRN (08:05)
[2021-09-14] MEDS ORDERED: fentaNYL citrate 0.05 MG/ML VIAL ONE (08:27)
[2021-09-14] MEDS ORDERED: diphenhydrAMINE 50 MG/ML VIAL IVP PRN (08:30)
[2021-09-14] MEDS ORDERED: fentaNYL citrate 0.05 MG/ML VIAL IVP ONE (08:30)
[2021-09-14] MEDS ORDERED: ONDANSETRON 4 MG/2 ML VIAL IVP PRN (08:30)
[2021-09-14] MEDS: HYDROmorphone 1 MG/ML AMP IVP PRN ×4 (08:45→09:15)
[2021-09-14] MEDS ORDERED: HYDROmorphone PFS 2 MG/ML SYR ONE (08:51)
[2021-09-14] MEDS: levETIRAcetam 500 MG TAB PO SCH ×2 (09:00→11:51)
[2021-09-14] MEDS: INSULIN LANTUS 100 UNITS/ML 10 ML VIAL SUBQ SCH (09:00)
[2021-09-14] MEDS: PROMETHAZINE 6.25 MG/5 ML ORASYR PO SCH (09:00)
[2021-09-14] MEDS: INSULIN LISPRO SLIDING SCALE 100 UNITS/ML VIAL SUBQ PRN ×3 (09:10→20:55)
--- NOTE | 2021-09-14 09:40 | NUR ---
PT. WENT BACKL FROM OR. AFTER PROCEDURE DONE . RECEIVED PT.TO THE BED. PROVIDE COMFORTABLE POSITION. RECEIVED REPORT FROM OR NURSE. PT. STABLE. V/S WNL. NOT IN DISTRESS ON ROOM AIR . STELLA PAIN AT THIS TIME. DRESSING DRY AND INTACT.ALL SAFETY MEASURES IN PLACED. WILL CONTINUE TO MONITOR THE PT.
[2021-09-14 09:45] VITALS: BP 134/90
--- NOTE | 2021-09-14 10:15 | NUR ---
MADE ROUND. PT. STABLE AND COMFORTABLY RESTING IN THE BED. RESUMED DIET. PROVIDE SANDWITCH DEMAND ,REQUESTED FROM KITCHEN. MONITORING VITALS PROTOCOL. V/S WNL. NOT IN DISTRESS ON RA. WILL CONTINUE TO MONITOR THE PT.
[2021-09-14] MEDS: amLODIPine 5 MG TAB PO SCH (11:41)
[2021-09-14] MEDS: lisinopriL 5 MG TAB PO SCH (11:43)
--- NOTE | 2021-09-14 11:43 | NUR ---
ANSWERED CALL LIGHT . PT. WAS C/O PAIN AT WOUND SITE ,05/08. REQUESTING MORPHINE IVP MEDICATION. V/S CHEKED PRIOR TO GIVE MEDS. HR 90/MIN,BP 134/85. MEDICATED WITH PAIN MED. MORPHINE. ALSO ADMINISTERED SCHEDULED MEDS PT. TOLERATED WELL. WILL REASSESS FOR EFFECTIVENESS OF PAIN MED. AND WILL CONTINUE TO MONITOR THE PT.
--- NOTE | 2021-09-14 11:59 | NUR ---
09/14/21 RD F/U COMPLETED PLEASE REFER TO NUTRITION ASSESSMENT UNDER CARE ACTIVITY FOR ESTIMATED NUTRITIONAL NEEDS. 1. CONSIDER [facility] DIET WITH CHOPPED MEATS 2. CONSIDER DAYANNA BID FOR WOUND HEALING 3. RD TO FOLLOW-UP 2-3 DAYS, HIGH RISK REVIEWED BY BRITTA VÁSQUEZ RD
[2021-09-14 12:00] VITALS: BP 134/85
[2021-09-14] MEDS: GAUZE TP SCH (13:00)
--- NOTE | 2021-09-14 13:00 | NUR ---
PT. ALERT, STABLE. BREATHINGS NORMAL AND UNLABORED. STELLA PAIN AT THIS TIME. ALL SAFETY MEASURES IN PLACED. WILL CONTINUE TO MONITOR THE PT.
--- NOTE | 2021-09-14 15:00 | NUR ---
PT. STABLE.V/S WNL. NOT IN DISTRESS ON ROOM AIR. SAFETY MEASURES IN PLACED. CALL LIGHT WITHIN REACH. WILL CONTINUE TO MONITOR THE PT.
[2021-09-14 16:00] VITALS: BP 126/88
--- NOTE | 2021-09-14 16:20 | NUR ---
PT. C/O PAIN AT WOUND SITE. ADMINISTERED WITH PRN PAIN MEDICATION. V/S WNL. NOT IN DISTRESS WILL CONTINUE TO MONITOR THE PT.
[2021-09-14] MEDS: NITROFURANTOIN 100 MG CAP PO SCH (16:21)
--- NOTE | 2021-09-14 17:00 | NUR ---
REASSESSED PT. FOR EFFECTIVENESS OF PAIN MEDICATION. PT. COMFORTABLY SLEEPING AT THIS TIME. NOT IN DISTRESS NOTED. WILL CONTINUE TO MONITOR THE PT.
--- NOTE | 2021-09-14 19:30 | NUR ---
RECEIVED BEDSIDE REPORT FROM DAY SHIFT RN FOR CONTINUITY OF CARE. PT IS AWAKE LAYING IN BED ON RA. IVF RUNNING MD ORDER. PT IS NOT IN ANY DISTRESS. CALL LIGHT WITHIN REACH. ALL SAFETY MEASURES TAKEN. WILL CONTINUE TO MONITOR THE PT AND PROVIDE PLAN OF CARE.
[2021-09-14 20:00] VITALS: BP 137/98
--- NOTE | 2021-09-14 21:10 | NUR ---
PT COMPLAIN OF PAIN ON HER SURGICAL SIGHT. PAIN LEVEL 10/10. PT WAS MEDICATED MD ORDER. PT IS NOT IN ANY DISTRESS AND HAS NO FURTHER COMPLAINS. IVF RUNNING MD ORDER. CALL LIGHT WITHIN REACH. WILL CONTINUE TO MONITOR THE PT.
[2021-09-15] VITALS: BP 135/80
[2021-09-15] MEDS: MORPHINE SULFATE 2 MG/ML SYR IVP PRN ×6 (01:12→22:14)
--- NOTE | 2021-09-15 01:27 | NUR ---
PT BOTH EYELIDS ARE SWOLLEN. NO VISUAL IMPAIRMENT NOTED. THE DRESSING CAME OFF FROM THE BUTTOCKS WOUND WHEN SHE VOIDED ON THE COMMODE. 4X4 GAUZE WAS APPLIED WITH OPTIFOAM DRESSING. WILL CONTINUE TO OBSERVE THE PT.
[2021-09-15] MEDS: DEXT 5% / NACL 0.45% 1,000 ML IV SCH ×3 (02:45→23:57)
[2021-09-15 04:00] VITALS: BP 147/97
[2021-09-15] MEDS: metroNIDAZOLE 500 MG/NS PREMIX 100 ML IV SCH ×3 (04:07→20:25)
[2021-09-15 06:19] LABS: CARBON DIOXIDE 22.3 mmol/L (21-32); CREATININE 0.8 mg/dL (0.6-1.3); POTASSIUM 4.3 mmol/L (3.5-5.1)
[2021-09-15 06:21] LABS: BASOPHILS # (AUTO) 0.1 K/uL (0.00-0.22); BASOPHILS % (AUTO) 1.1 % (0.0-2.0); EOSINOPHILS # (AUTO) 0.1 K/uL (0-0.4); EOSINOPHILS % (AUTO) 1.1 % (0.0-4.0); HEMATOCRIT 24.9 % (36-48); HEMOGLOBIN 8.3 g/dL (12.0-16.0); LYMPHOCYTES # (AUTO) 2.2 K/uL (2.5-16.5); LYMPHOCYTES % (AUTO) 25.8 % (20.5-51.1); MEAN CORPUSCULAR HEMOGLOBIN 28 pg (27-31); MEAN CORPUSCULAR HGB CONC 34 g/dL (33-37); MEAN CORPUSCULAR VOLUME 84.9 fL (80-94); MONOCYTES # (AUTO) 0.6 K/uL (0.8-1.0); MONOCYTES % (AUTO) 7.2 % (1.7-9.3); NEUTROPHILS # (AUTO) 5.6 K/uL (1.8-7.7); NEUTROPHILS % (AUTO) 64.8 % (42.2-75.2); PLATELET COUNT (AUTO) 897 K/uL (140-450); RED BLOOD CELL COUNT(AUTO) 2.93 MIL/uL (4.20-5.40); RED CELL DISTRIBUTION WIDTH 13.4 % (11.6-13.7); WHITE BLOOD COUNT (AUTO) 8.6 K/uL (4.8-10.8)
[2021-09-15] MEDS: INSULIN LISPRO SLIDING SCALE 100 UNITS/ML VIAL SUBQ PRN ×3 (06:36→20:46)
[2021-09-15] MEDS: BLOOD GLUCOSE MONITORING 1 DEV DEV FS SCH ×4 (06:36→20:44)
--- NOTE | 2021-09-15 07:30 | NUR ---
ENDORSED PT TO DAY SHIFT RN. PT IS STABLE. SIGNING OUT.
--- NOTE | 2021-09-15 07:54 | NUR ---
BEDSIDE REPORT RECEIVED FROM ATG JAVA DEVELOPER NURSE. NO S/SX OF DISTRESS ALL SAFETY MEASURES ARE IN PLACE.
[2021-09-15 08:00] VITALS: BP 149/94
[2021-09-15] MEDS: NITROFURANTOIN 100 MG CAP PO SCH ×2 (08:00→17:29)
--- NOTE | 2021-09-15 09:00 | NUR ---
MEDICATIONS GIVEN PER MD ORDER, PT EVALUATED AND STATES SHE IS IN 10/10 PAIN ON HER BOTTOM , PAIN IS CONSTANT CONTINIOUS DOES NOT RADIATE . REPOSITIONING AND DISTRACTION INEFFECTIVE. PRN MEDICATION GIVEN AT THIS TIME
[2021-09-15] MEDS: levETIRAcetam 500 MG TAB PO SCH ×2 (09:33→20:25)
[2021-09-15] MEDS: amLODIPine 5 MG TAB PO SCH (09:34)
[2021-09-15] MEDS: lisinopriL 5 MG TAB PO SCH (09:34)
[2021-09-15] MEDS: CHLORHEXADINE GLUC 2% CLOTH TP SCH (09:51)
[2021-09-15] MEDS: MUPIROCIN CA NASAL 2% 1GM TUBE NS SCH (09:51)
[2021-09-15] MEDS: PROMETHAZINE 6.25 MG/5 ML ORASYR PO SCH (09:51)
[2021-09-15] MEDS: INSULIN LANTUS 100 UNITS/ML 10 ML VIAL SUBQ SCH (09:52)
--- NOTE | 2021-09-15 11:46 | NUR ---
BG 257 , MEDICATIONS GIVEN PER MD ORDER. PT EDUCATED AND VERBALIZED UNDERSTANDING .
[2021-09-15 12:00] VITALS: BP 135/87
--- NOTE | 2021-09-15 12:04 | NUR ---
IC WATER PROVIDED , BED BATH OFFERED, PATIENT GIVEN WIPES
[2021-09-15] MEDS: GAUZE TP SCH (13:15)
--- NOTE | 2021-09-15 13:32 | NUR ---
PATIENT COMPLAINS 10/10 PAIN MEDICATION GIVEN PER MD ORDER. PT REFUSED WOUND CARE AT THIS TIME PATIENT EDUCATED AND ASKED TO CALL WHEN PAIN IS REDUCED AND IS READY FOR WOUND CARE
--- NOTE | 2021-09-15 15:40 | NUR ---
PATIENT WOUND CARE COMPLETE PT TOLERATED WELL. PATIENT STATES MOTHER WILL COME TOMORROW TO LEARN
[2021-09-15 16:00] VITALS: BP 138/92
--- NOTE | 2021-09-15 17:30 | NUR ---
PATIENT COMPLAINS OF 10/10 PAIN PRN MEDICATION GIVEN , ALL SAFETY MEASURES ARE IN PLACE.
--- NOTE | 2021-09-15 19:28 | NUR ---
PATIENT ENDORSED TO MARINE STEAM FITTER HELPER NURSE PATIENT IN STABLE CONDITION.
--- NOTE | 2021-09-15 19:30 | NUR ---
RECEIVED BEDSIDE REPORT FROM DAY SHIFT RN FOR CONTINUITY OF CARE. PT IS AWAKE,ALERT AND ORIENTED.ON ROOM AIR. PT IS NOT IN ANY DISTRESS. CALL LIGHT WITHIN REACH. ALL SAFETY MEASURES TAKEN. WILL CONTINUE TO MONITOR..
[2021-09-15 20:00] VITALS: BP 135/86
--- NOTE | 2021-09-15 20:30 | NUR ---
SCHEDULED MEDICATIONS GIVEN PER MD ORDER. PT TOLERATED WELL. NO DISTRESS NOTED. ALL PRECAUTIONS IN PLACE.WILL CONTINUE TO MONITOR.
--- NOTE | 2021-09-15 20:35 | NUR ---
BLOOD SUGAR WAS 158. INSULIN COVERAGE GIVEN. PT TOLERATED WELL. NO DISTRESS NOTED. VSS. ALL PRECAUTIONS IN PLACE. CALL LIGHT WITHIN REACH.WILL CONTINUE TO MONITOR.
--- NOTE | 2021-09-15 22:15 | NUR ---
PT COMPLAINED OF 10/10 PAIN ON HER BACK WHERE SHED HAD A SURGERY. PRN PAIN MEDICATION GIVEN.CALL LIGHT WITHIN REACH.ALL PRECAUTIONS IN PLACE. WILL CONTINUE TO MONITOR.
[2021-09-16] VITALS: BP 121/78
--- NOTE | 2021-09-16 | NUR ---
VITAL SIGN STABLE. PT HAS NO COMPLAINS AT THIS TIME. NO DISTRESS NOTED. ALL PRECAUTIONS IN PLACE. WILL CONTINUE TO MONITOR.
[2021-09-16] MEDS: MORPHINE SULFATE 2 MG/ML SYR IVP PRN ×6 (02:48→23:21)
--- NOTE | 2021-09-16 03:28 | NUR ---
PT COMPLAINED OF 10/10 PAIN ON HER SACRAL AREA. PRN PAIN MEDICATION GIVEN.CALL LIGHT WITHIN REACH.ALL PRECAUTIONS IN PLACE. WILL CONTINUE TO MONITOR.
[2021-09-16 04:00] VITALS: BP 117/71
[2021-09-16] MEDS: metroNIDAZOLE 500 MG/NS PREMIX 100 ML IV SCH ×3 (05:54→21:00)
[2021-09-16 06:15] LABS: BASOPHILS # (AUTO) 0.1 K/uL (0.00-0.22); BASOPHILS % (AUTO) 1.2 % (0.0-2.0); EOSINOPHILS # (AUTO) 0.2 K/uL (0-0.4); EOSINOPHILS % (AUTO) 2.9 % (0.0-4.0); HEMATOCRIT 23.5 % (36-48); HEMOGLOBIN 7.7 g/dL (12.0-16.0); LYMPHOCYTES # (AUTO) 2.7 K/uL (2.5-16.5); MEAN CORPUSCULAR HEMOGLOBIN 28 pg (27-31); MEAN CORPUSCULAR HGB CONC 33 g/dL (33-37); MEAN CORPUSCULAR VOLUME 85.2 fL (80-94); MONOCYTES # (AUTO) 0.7 K/uL (0.8-1.0); MONOCYTES % (AUTO) 7.9 % (1.7-9.3); NEUTROPHILS # (AUTO) 4.7 K/uL (1.8-7.7); PLATELET COUNT (AUTO) 836 K/uL (140-450); RED BLOOD CELL COUNT(AUTO) 2.76 MIL/uL (4.20-5.40); RED CELL DISTRIBUTION WIDTH 13.4 % (11.6-13.7); WHITE BLOOD COUNT (AUTO) 8.5 K/uL (4.8-10.8)
[2021-09-16] MEDS: BLOOD GLUCOSE MONITORING 1 DEV DEV FS SCH ×4 (06:31→21:00)
[2021-09-16] MEDS: INSULIN LISPRO SLIDING SCALE 100 UNITS/ML VIAL SUBQ PRN ×4 (06:33→23:47)
--- NOTE | 2021-09-16 06:40 | NUR ---
BLOOD SUGAR WAS 351. INSULIN COVERAGE GIVEN. PT TOLERATED WELL. NO DISTRESS NOTED. VSS. ALL PRECAUTIONS IN PLACE. CALL LIGHT WITHIN REACH.WILL CONTINUE TO MONITOR.
--- NOTE | 2021-09-16 06:48 | NUR ---
PT COMPLAINED OF 10/10 PAIN ON HER SACRAL AREA. PRN PAIN MEDICATION GIVEN.CALL LIGHT WITHIN REACH.ALL PRECAUTIONS IN PLACE. WILL CONTINUE TO MONITOR.
[2021-09-16 06:52] LABS: ANION GAP 10.9 (8-16); CARBON DIOXIDE 22.9 mmol/L (21-32); CREATININE 0.9 mg/dL (0.6-1.3); POTASSIUM 3.8 mmol/L (3.5-5.1)
--- NOTE | 2021-09-16 07:00 | NUR ---
PT STABLE. NO ACUTE EVENTS THROUGHOUT THE NIGHT. PT IS NOT IN ANY DISTRESS. PT HAS NO COMPLAINS AT THIS TIME. ALL NEEDS ATTENDED. ALL PRECAUTIONS IN PLACE. WILL ENDORSE TO AM SHIFT NURSE.
--- NOTE | 2021-09-16 07:25 | NUR ---
PT ENDORSED TO AM SHIFT NURSE FOR CONTINUITY OF CARE. PT IS STABLE.
--- NOTE | 2021-09-16 07:31 | NUR ---
PATIENT RECEIVED FROM PLASMA CUTTING MACHINE OPERATOR NURSE, PT RESTING IN BED EYES CLOSED, ON LEFT SIDE, BREATHING SYMMETRICAL AND UNLABORED. BED ALARM CLAIMS VICE PRESIDENT LIGHT WITHIN REACH BED IN LOWEST POSITION , ALL SAFETY MEASURES ARE IN PLACE
[2021-09-16 08:00] VITALS: BP 138/103
[2021-09-16] MEDS: INSULIN LANTUS 100 UNITS/ML 10 ML VIAL SUBQ SCH (08:14)
[2021-09-16] MEDS: NITROFURANTOIN 100 MG CAP PO SCH ×2 (08:16→17:02)
[2021-09-16] MEDS: lisinopriL 5 MG TAB PO SCH (08:16)
[2021-09-16] MEDS: POTASSIUM CHLORIDE 10 MEQ TABER PO PRN (08:17)
[2021-09-16] MEDS: amLODIPine 5 MG TAB PO SCH (08:17)
[2021-09-16] MEDS: levETIRAcetam 500 MG TAB PO SCH ×2 (08:17→21:00)
[2021-09-16] MEDS: MUPIROCIN CA NASAL 2% 1GM TUBE NS SCH (08:17)
[2021-09-16] MEDS: DEXT 5% / NACL 0.45% 1,000 ML IV SCH ×2 (08:18→18:58)
[2021-09-16] MEDS: PROMETHAZINE 6.25 MG/5 ML ORASYR PO SCH (08:19)
[2021-09-16] MEDS: CHLORHEXADINE GLUC 2% CLOTH TP SCH (08:26)
--- NOTE | 2021-09-16 08:27 | NUR ---
MEDICATIONS GIVEN PER MD ORDER, PATIENT EDUCATED AND VERBALIZED UNDERSTANDING, ALL SAFETY MEASURES ARE IN PLACE.
--- NOTE | 2021-09-16 10:50 | NUR ---
PATIENT COMPLAINS OF 10/10 PAIN IN BUTTOCKS , PT REPOSITIONED BUT INTERVENTION WAS INEFFECTIVE IN RELIEVING PAIN . ALL SAFETY MEASURES ARE IN PLACE.
--- NOTE | 2021-09-16 11:30 | NUR ---
BG ASSESSED, PRN INSULIN GIVEN PER MD ORDER PT RESTING IN BED . ALL SAFETY MEASURES ARE IN PLACE.
[2021-09-16 12:00] VITALS: BP 145/85
[2021-09-16] MEDS: GAUZE TP SCH (13:29)
--- NOTE | 2021-09-16 15:10 | NUR ---
PATIENT COMPLAINS OF 10/10 PAIN IN BUTTOCKS , PT REPOSITIONED BUT INTERVENTION WAS INEFFECTIVE IN RELIEVING PAIN . ALL SAFETY MEASURES ARE IN PLACE.
--- NOTE | 2021-09-16 17:36 | NUR ---
PATIENT ASSISTED WITH BEDSIDE COMMODE , ALL SAFETY MEASURES ARE IN PLACE.
--- NOTE | 2021-09-16 18:41 | NUR ---
PT GIVEN DINNER REQUEST ICE , WHOLE BED CHANGED , PT TOLERATED WELL DENIES NAUSEA.
--- NOTE | 2021-09-16 19:30 | NUR ---
PATIENT ENDORSED TO CLINICAL INTERVIEWER , PT IN STABLE CONDITION.
--- NOTE | 2021-09-16 19:31 | NUR ---
RECD. RESTING IN BED, AWAKE, A/OX4. RESPIRATION EVEN AND UNLABORED. IV FO D5 0.45% NS INFUSING AT 00 ML/HR, RIGHT UPPER ARM PICC LINE. USES THE BEDSIDE COMMODE. SURGICAL INCISION IN THE RIGHT BUTTOCKS COVERED WITH DRESSING DRY AND INTACT. PAIN IN THE SURGICAL SITE, 01/06, WAS JUST MEDICATED WITH PAIN MEDICATION BY AM NURSE. ON IV ANTIBIOTICS.
[2021-09-16] MEDS ORDERED: traMADol 50 MG TAB PO PRN (20:25)
--- NOTE | 2021-09-16 21:00 | NUR ---
RESTING COMFORTABLY IN BED. WATCHING TV. SNACK FOR THE NIGHT GIVEN.
--- NOTE | 2021-09-16 23:00 | NUR ---
CALLED NURSE, COMPLAINED THAT WHEN SHE VOIDED, SURGICAL DRESSING GOT WET. REFUSED TO CHANGED THE PACKING BUT WANTS TO JUST REINFORCE DRESSING.
[2021-09-17] VITALS: BP 135/75
[2021-09-17] MEDS: DEXT 5% / NACL 0.45% 1,000 ML IV SCH ×2 (00:13→04:45)
--- NOTE | 2021-09-17 01:00 | NUR ---
REQUEST FOR CHICKEN BROTH AND CRACKERS GIVEN. CONVERSING WITH SOMEBODY IN HER CELLPHONE.
--- NOTE | 2021-09-17 03:00 | NUR ---
SLEEPING COMFORTABLY IN BED. RESPIRATION EVEN AND UNLABORED. CALL LIGHT IN REACH.
[2021-09-17] MEDS: MORPHINE SULFATE 2 MG/ML SYR IVP PRN ×2 (05:24→09:51)
[2021-09-17] MEDS: metroNIDAZOLE 500 MG/NS PREMIX 100 ML IV SCH (05:44)
--- NOTE | 2021-09-17 06:00 | NUR ---
ABLE TO SLEEP WELL. CONDITION REMAIN STABLE. WILL ENDORSE TO AM SHIFT NURSE FOR CONTINUITY OF CARE.
[2021-09-17] MEDS: BLOOD GLUCOSE MONITORING 1 DEV DEV FS SCH ×2 (06:55→11:30)
[2021-09-17] MEDS: INSULIN LISPRO SLIDING SCALE 100 UNITS/ML VIAL SUBQ PRN (06:57)
--- NOTE | 2021-09-17 07:28 | NUR ---
RECEIVED REPORT FROM PM SHIFT RN. PT. SLEEPING IN THE BED COMFORTABLY WITHOUT DISTRESS. ALL SAFETY MEASURES IN PLACED. WILL CONTINNUE TO MONITOR THE PT.
[2021-09-17 08:07] VITALS: BP 138/103
[2021-09-17] MEDS: PROMETHAZINE 6.25 MG/5 ML ORASYR PO SCH (09:00)
[2021-09-17] MEDS: levETIRAcetam 500 MG TAB PO SCH (09:08)
[2021-09-17] MEDS: NITROFURANTOIN 100 MG CAP PO SCH (09:09)
[2021-09-17] MEDS: MUPIROCIN CA NASAL 2% 1GM TUBE NS SCH (09:09)
[2021-09-17] MEDS: POTASSIUM CHLORIDE 10 MEQ TABER PO PRN (09:10)
[2021-09-17] MEDS: amLODIPine 5 MG TAB PO SCH (09:12)
[2021-09-17] MEDS: lisinopriL 5 MG TAB PO SCH (09:14)
[2021-09-17] MEDS: INSULIN LANTUS 100 UNITS/ML 10 ML VIAL SUBQ SCH (09:28)
--- NOTE | 2021-09-17 09:30 | NUR ---
PT. RESTING IN THE BED.NO ACUTE DISTRESS/SOB NOTED. ADMINISTERED SCHEDULED MEDICATION . PT. TOLERATED WELL. ALL SAFETY MEASURES IN PLACED. WILL CONTINUE TO MONITOR. THE PT.
[2021-09-17] MEDS ORDERED: METR-435 PO (09:46)
[2021-09-17] MEDS ORDERED: ACET-9525 PO (09:46)
[2021-09-17] MEDS ORDERED: NITR100C15 PO (09:46)
--- NOTE | 2021-09-17 09:51 | NUR ---
PT. C/O PAIN AT WOUND SITE. MEDICATED WITH PAIN MED PRN ORDER. V/S STABLE. WILL REASSESS FOR EFFECTIVENESS.
[2021-09-17 10:28] LABS: ANION GAP 9.6 (8-16); CARBON DIOXIDE 26.8 mmol/L (21-32); CREATININE 0.7 mg/dL (0.6-1.3); POTASSIUM 3.4 mmol/L (3.5-5.1)
--- NOTE | 2021-09-17 10:30 | NUR ---
PT. RESTING IN THE BED. NO C/O PAIN/DISCOMFORT AT THIS TIME. NOOT IN DISTRESS. SAFETY MEASURES IN PLACED. WILL CONTINUE TO MONITOR THE PT.
--- NOTE | 2021-09-17 11:00 | NUR ---
DC PLANNING VARUN CALLED PATIENT'S PCP OFFICE AT AND SPOKE TO POLO TO SCHEDULED A FOLLOW UP APPOINTMENT FOR PATIENT AFTER DC FROM [facility]. POLO SCHEDULED PATIENT'S FOLLOW UP APPOINTMENT FOR Friday09/19/2021 AT 01:45PM WITH MD ES LEMUS. VARUN MET WITH PATIENT AND PROVIDED HER WITH APPOINTMENT NOTE AND INFORMATION FOR HER UPCOMING APPOINTMENT ON 09/19/2021 AT 01:405PM WITH MD.JAMES LEMUS. PATIENT AGREED AND THANKED THIS MANAGER ACTION FOR INFORMATION.
--- NOTE | 2021-09-17 11:30 | NUR ---
RECEIVED DISCHARGE ORDER . D/C TO HOME. PT. STABLE. VS WNL. SAFETY MEASURES IN PLACED.
--- NOTE | 2021-09-17 11:50 | NUR ---
WOUND CARE RE-EVALUATION NOTE: S/P I&D RIGHT BUTTOCK SURGICAL WOUND FULL THICKNESS SKIN LOSS [id number] WOUND BED 100% RED GRANULATING TISSUE, SMALL AMOUNT SANGUINOUS DRAINAGE, NO ODOR, WOUND EDGE FLAT, PER-WOUND SKIN MOIST AND INTACT. POC DISCUSSED WITH PT. AND WOUND CARE INSTRUCTIONS EXPLAINED, PT. VERBALIZES UNDERSTANDING. ALL QUESTIONS ANSWERED. PT. REFUSES HOME HEALTH WOUND CARE. RANDI COMPUTING MACHINE OPERATOR NOTIFIED. RECOMMENDATIONS: -CLEANSE RIGHT BUTTOCK WITH NS, PAT DRY , PACK WOUND WITH ONE PIECE LONG OIL EMULSION DRESSING WITH SILVASORB GEL AND COVER WITH ISLAND DRESSING QD AND PRN IF SOILING.
--- NOTE | 2021-09-17 13:00 | NUR ---
DC PLANNING PATIENT IS A 31-YEAR-OLD FEMALE ADMITTED ON A 09/10/2021 FROM THE [facility]/ED DUE TO GENERALIZED WEAKNESS WITH INCREASED ABDOMINAL PAIN. VARUN MET WITH PATIENT AND HER MOTHER RHODA REYNA AT BEDSIDE TO DISCUSS AND GATHER HER COLLATERAL INFORMATION. PATIENT REPORTED LIVING AT HOME WITH HER MOTHER RHODA WHO IS ALSO HER EMERGENCY CONTACT AND MEDICAL DECISION MAKER. PER PATIENT SHE DOES NOT HAVE ADVANCE DIRECTIVES AND DECLINED INFORMATION PACKET PROVIDED BY VARUN. PATIENT REPORTED NOT HAVING ANY ISSUES GETTING OR TAKING HER MEDICATIONS FROM THE [facility] NEAR HER [place]. PATIENT STATED THAT SHE DO NOT HAVE OR NEED DME AT HOME. REPORTED THAT SHE VISITS HER PCP MD ES LEMUS IN [facility] [place], LAST VISIT WAS ABOUT 3 WEEKS AGO AND WAS ON AGREEMENT FOR VARUN TO SCHEDULE A FOLLOW UP APPOINMENT FOR HER BEFORE SHE IS DC FROM [facility]. PATIENT REPORTED THAT HER MOTHER WILL BE ASSISTING HER WITH TRANSPORTATION BACK HOME WHEN SHE IS DC. PER PATIENT HER MOTHER WILL PICK HER UP FROM [facility] TO TAKE HER HOME. SW WILL FOLLOW UP NEEDED.
--- NOTE | 2021-09-17 14:00 | NUR ---
MOTHER IS AT BEDSIDE,CAME TO PINION AND WHEEL TRUER THE PATIENT. PT. ALSRT STABLE NOT IN DISTRESS.
[2021-09-17 14:20] VITALS: BP 128/88
--- NOTE | 2021-09-17 15:00 | NUR ---
ALL INSTRUCTION AND EDUCATION PROVIDED RE. MEDICATION, FOLLOW UP WITH PCP DR. ES LEMUS ,APPOINTMRNT ON DT 09/19/21 @1340..DIET TO FOLLOW. . VERBALIZED UNDERSTANDING
--- NOTE | 2021-09-17 15:10 | NUR ---
PT. DISCHARGED TO HOME IN STABLE CONDITION. MOTHER CAME TO NURSE ORTHOPEDIC IN PRIVATE CAR.DROPPED PT. TO THE CAR VIA WHEEL CHAIR @1510.
== END 2021-09-17 15:10 | disposition home health service (06) | DRG 710 ==
LOC: MED 15:36 → MTU 20:25 → MIC 09-11 04:13 → MTU 09-13 07:15 → MMU 09-13 23:50
PROVIDERS: ADMIT Internal Medicine; ATTEND Internal Medicine
PROC: 0J9B0ZZ Drainage of Perineum Subcutaneous Tissue and Fascia, Open Approach (ICD-10-PCS; principal; 2021-09-14 07:30)
DX: A41.9 Sepsis, unspecified organism (principal); E10.10 Type 1 diabetes mellitus with ketoacidosis without coma; N17.9 Acute kidney failure, unspecified; E44.0 Moderate protein-calorie malnutrition; E10.649 Type 1 diabetes mellitus with hypoglycemia without coma; L08.9 Local infection of the skin and subcutaneous tissue, unspecified; K61.0 Anal abscess; K61.1 Rectal abscess; N39.0 Urinary tract infection, site not specified; G89.4 Chronic pain syndrome; I10 Essential (primary) hypertension; E86.0 Dehydration; D75.839 Thrombocytosis, unspecified; Z79.4 Long term (current) use of insulin; Z88.0 Allergy status to penicillin; Z79.899 Other long term (current) drug therapy
CPT/HCPCS: 36415; 71045; 71046; 72192; 80048; 80053; 81001; 82009; 82803; 82948; 83036; 83605; 83690; 83735; 84100; 84436; 84439; 84443; 84479; 84484; 85025; 85610; 85730; 87040; 87070; 87075; 87081; 87086; 87186; 87205; 87804; 93005; 96361; 96365; 96366; 96368; 96375; 99291; J0360; J1170; J1815; J1956; J2001; J2250; J2270; J2405; J2543; J2704; J3010; J3370; J3490; J7030

== ENCOUNTER 2021-09-22 03:14 | Inpatient (IN) | payer OTHER, SELFPAY ==
[~2021-09-22] VITALS: Ht 157.5 cm; Wt 55.3 kg
[2021-09-22] VITALS (10 sets, daily range): BP systolic 110–143; BP diastolic 61–97
[~2021-09-22 03:14] MED LIST: ACET-9525 PO; BIOT5CAP PO; HUM7525 SUBQ; INSU100S22 SUBQ; LISI2.5T12 PO; METR-435 PO; NITR100C15 PO; PROM6.2555 PO; TRAZ-343 PO
--- NOTE | 2021-09-22 03:26 | NUR ---
pt called in lobby, no answer at this time
--- NOTE | 2021-09-22 03:37 | NUR ---
pt wheelchair assist to bed 02
[2021-09-22] MEDS ORDERED: LACTATED RINGERS 2,000 ML IV ONE (03:45)
[2021-09-22] MEDS ORDERED: NITR100C7 PO (04:28)
[2021-09-22] MEDS ORDERED: LISI-487 PO (04:29)
[2021-09-22] MEDS ORDERED: AMLO10TA1 PO (04:33)
[2021-09-22] MEDS ORDERED: diphenhydrAMINE 50 MG/ML VIAL IM ONE (04:40)
[2021-09-22] MEDS ORDERED: HALOPERIDOL IM 5 MG/ML VIAL IM ONE (04:40)
[2021-09-22] MEDS ORDERED: LEVE1000 PO (04:47)
[2021-09-22] MEDS ORDERED: KEP500 PO (04:47)
[2021-09-22 04:48] LABS: BASOPHILS # (AUTO) 0.2 K/uL (0.00-0.22); BASOPHILS % (AUTO) 0.6 % (0.0-2.0); EOSINOPHILS # (AUTO) 0.1 K/uL (0-0.4); EOSINOPHILS % (AUTO) 0.4 % (0.0-4.0); HEMATOCRIT 38.9 % (36-48); LYMPHOCYTES # (AUTO) 1.7 K/uL (2.5-16.5); LYMPHOCYTES % (AUTO) 7.2 % (20.5-51.1); MEAN CORPUSCULAR HEMOGLOBIN 28 pg (27-31); MEAN CORPUSCULAR HGB CONC 28 g/dL (33-37); MEAN CORPUSCULAR VOLUME 99.8 fL (80-94); MONOCYTES % (AUTO) 4.1 % (1.7-9.3); NEUTROPHILS # (AUTO) 20.8 K/uL (1.8-7.7); RED CELL DISTRIBUTION WIDTH 15.3 % (11.6-13.7); WHITE BLOOD COUNT (AUTO) 23.7 K/uL (4.8-10.8)
--- NOTE | 2021-09-22 04:48 | NUR ---
PATIENT REFUSED TO BE IN MONITOR //DiCaprio RN
--- NOTE | 2021-09-22 05:02 | NUR ---
PATIENT MORE RELAX AFTER GOT THE BENADRYL AND HALLOPERIDOL //DiCaprio RN
[2021-09-22 05:12] LABS: NEUTROPHILS % (AUTO) 87.7 % (42.2-75.2)
[2021-09-22 05:13] LABS: PLATELET COUNT (AUTO) 1508 K/uL (140-450)
[2021-09-22 06:48] LABS: ANION GAP 34.9 (8-16); CREATININE 1.6 mg/dL (0.6-1.3); POTASSIUM 5.3 mmol/L (3.5-5.1); TOTAL BILIRUBIN 0.4 mg/dL (0.0-1.0)
[2021-09-22] MEDS ORDERED: CEFEPIME 2,000 MG in DEXTROSE 5% 100 ML IV ONE (06:55)
[2021-09-22] MEDS ORDERED: VANCOMYCIN 1,000 MG in DEXTROSE 5% 250 ML IV ONE (06:55)
[2021-09-22] MEDS ORDERED: NACL 0.9% 1,000 ML IV ONE (06:55)
[2021-09-22 07:20] LABS: CARBON DIOXIDE 9.4 mmol/L (21-32)
--- NOTE | 2021-09-22 07:35 | NUR ---
RECEIVED REPORT FROM TOM GORDILLO. ASSUMED CARE AT THIS TIME.
[2021-09-22] MEDS ORDERED: INSULIN REGULAR, HUMAN 100 UNIT in NACL 0.9% 100 ML IV ONE ×2 (07:40)
--- NOTE | 2021-09-22 07:40 | NUR ---
PATIENT STATING SHE IS UNABLE TO PROVIDE URINE AT THIS TIME. DR. MIRANDA MADE AWARE
[2021-09-22] MEDS ORDERED: ACETAMINOPHEN 325 MG TAB PO PRN (08:20)
[2021-09-22] MEDS ORDERED: POTASSIUM CHLORIDE 10 MEQ TABER PO PRN (08:20)
[2021-09-22] MEDS ORDERED: MAG SULF 2000 MG/WATER PREMIX 50 ML IV PRN (08:20)
[2021-09-22] MEDS ORDERED: MAGNESIUM OXIDE 400 MG TAB PO PRN (08:20)
[2021-09-22] MEDS ORDERED: KCL 20 MEQ/WATER INJ PREMIX 200 ML IV PRN (08:20)
--- NOTE | 2021-09-22 08:49 | NUR ---
Patient will be admitted to care of DR. DAVIS. Admited to ICU. Will go to room ICU 5. Belongings list completed. Report to
--- NOTE | 2021-09-22 08:53 | NUR ---
RECEIVED TELEPHONE REPORT FROM ER NURSE BRUCE, AWAITING FOR PT TO ARRIVE AT UNIT
--- NOTE | 2021-09-22 09:05 | NUR ---
PT ARRIVED AT UNIT VIA GURNEY PT AWAKE, ALERT, ABLE TO LET NEEDS KNOWN, ON ROOM AIR, NO SOB NOTED, TRANSFERRED THE PT TO BED, TOLERATED WELL, IV TO R EJ 18G, PATENT INTACT, SL. MRSA SWAB TAKEN, NOTED PT HAS WOUND TO RIGHT BUTTOCKS, PICTURE TAKEN, CULTURE TAKEN. INITIAL ASSESSMENT DONE, ALL SAFETY PRECAUTION MET, ORIENT PT TO ROOM, CALL LIGHT. WILL CONTINUE TO MONITOR.
[2021-09-22] MEDS ORDERED: VANCOMYCIN PER PHARMACY MC PRN (09:25)
[2021-09-22] MEDS ORDERED: MORPHINE SULFATE 2 MG/ML SYR ONE (09:27)
[2021-09-22] MEDS ORDERED: BLOOD GLUCOSE MONITORING 1 DEV DEV FS SCH (09:30)
[2021-09-22] MEDS ORDERED: INSULIN REGULAR, HUMAN 100 UNIT in NACL 0.9% 100 ML IV SCH ×2 (09:30)
[2021-09-22] MEDS ORDERED: DEXTROSE 50% 50 ML SYR IVP PRN (09:30)
[2021-09-22] MEDS: DEXT 5% / NACL 0.45% 1,000 ML IV SCH ×3 (09:30→15:14)
--- NOTE | 2021-09-22 09:42 | NUR ---
PATIENT HAS BEEN SCREENED AND CATEGORIZED HIGH NUTRITION RISK. PATIENT WILL BE SEEN WITHIN 1-2 DAYS OF ADMISSION. 09/22/21-09/24/21 ALLISON TREVINO MS, RDN
[2021-09-22] MEDS: MORPHINE SULFATE 2 MG/ML SYR IVP PRN ×3 (09:49→23:41)
[2021-09-22] MEDS: NACL 0.9% 1,000 ML IV SCH ×5 (09:52→21:40)
[2021-09-22] MEDS: ENOXAPARIN 40 MG/0.4 ML SYR SUBQ SCH (09:52)
[2021-09-22] MEDS ORDERED: CEFEPIME 2,000 MG in DEXTROSE 5% 100 ML IV SCH (10:00)
--- NOTE | 2021-09-22 10:30 | NUR ---
SPOKE TO PHARMACY REGARDING VANCOMYCIN ONE TIME ORDER FROM ED THAT HAS NOT BEEN ADMINISTERED, DR DAVIS ALSO ORDERED VANCO PER PHARMACY. PER PHARMACIST TO NOT ADMINISTER THE ORDER FROM ED, SHE WILL PUT IN A NEW ORDER.
[2021-09-22] MEDS ORDERED: RENAL DOSING PER PHARMACY MC PRN (10:50)
[2021-09-22] MEDS: BLOOD GLUCOSE MONITORING 1 DEV DEV FS SCH ×13 (11:00→23:07)
[2021-09-22] MEDS ORDERED: VANCOMYCIN 1,000 MG in NACL 0.9% 250 ML IV SCH (11:00)
[2021-09-22 13:15] LABS: ANION GAP 22.5 (8-16); CARBON DIOXIDE 16.8 mmol/L (21-32); CREATININE 1.6 mg/dL (0.6-1.3); POTASSIUM 4.3 mmol/L (3.5-5.1)
[2021-09-22 13:17] LABS: MAGNESIUM 1.9 mg/dL (1.8-2.4); PHOSPHORUS 3.5 mg/dL (2.5-4.9)
[2021-09-22] MEDS: metroNIDAZOLE 500 MG/NS PREMIX 100 ML IV SCH ×2 (13:37→21:06)
--- NOTE | 2021-09-22 14:15 | NUR ---
DR GONZALEZ AT BEDSIDE, EXPLAINING TO PT REGARDING PT SURGERY. CONSENT SIGNED.
[2021-09-22 16:48] LABS: ANION GAP 15.4 (8-16); CARBON DIOXIDE 20.8 mmol/L (21-32); CREATININE 1.4 mg/dL (0.6-1.3); POTASSIUM 4.2 mmol/L (3.5-5.1)
--- NOTE | 2021-09-22 17:08 | NUR ---
ENDORSED PT TO RN JOBY FOR CONTINUOUS OF CARE.
--- NOTE | 2021-09-22 17:20 | NUR ---
RECEIVED REPORT FROM GEORGE. IS SLEEPING. INSULIN DRIP AT 0.05 UNIT/KG/HR HAS ABSCESS ON [facility] SCHEDULE FOR THE ABSCESS I&D AND DEBREBRIDEMENT.
--- NOTE | 2021-09-22 18:00 | NUR ---
BLOOD GLUCOSE 122 INSULIN CONTINUE WITH D5 .45NS INFUSING.
--- NOTE | 2021-09-22 18:05 | NUR ---
OR TEAM COME TO TAKE PT TO SURGERY. RT AWAKE AND AWARE,.
[2021-09-22] MEDS ORDERED: MIDAZOLAM 2 MG/2 ML VIAL ONE (18:16)
[2021-09-22] MEDS ORDERED: KETAMINE 500 MG/5 ML VIAL ONE (18:16)
[2021-09-22] MEDS ORDERED: BUPIVACAINE-MPF/EPI 0.25% 30 ML VIAL INJ ONE (18:21)
[2021-09-22] MEDS ORDERED: LIDOCAINE 1% 500 MG/50 ML VIAL ONE (18:21)
--- NOTE | 2021-09-22 19:00 | NUR ---
PATIENT ARRIVED FROM OR STATUS POST OP FOR INCISION AND DRAINAGE OF PERIRECTAL ABSCESS. PATIENT NOTED IN STABLE CONDITION, VSS, ON SIMPLE MASK O2 7 L/MIN. TEMPERATURE 97.8. PATIENT AO X4 WITH COMPLAINT OF PAIN OF SURGICAL SITE. RECEIVED REPORT FROM ANESTHESIOLOGIST AT BEDSIDE. INCISION COVERED AND PACKED WITH 4X4 AND ABD. PATIENT RUNNING INSULIN DRIP AT 0.05 UNITS/KG/HR AND D51/2NS AT 200 ML VIA RIGHT EJ 18G. ACCUCHECK BS 78. ALL SAFETY MEASURES IN PLACE, WILL CONTINUE TO MONITOR.
[2021-09-22] MEDS ORDERED: HYDROmorphone 1 MG/ML AMP ONE (19:33)
[2021-09-22] MEDS ORDERED: HYDROcodone/APAP 5/325 MG 1 TAB TAB PO PRN (19:35)
--- NOTE | 2021-09-22 19:35 | NUR ---
ADMINISTERED PAIN MEDICATION ORDERED PER SURGEON GONZALEZ. PATIENT WITH COMPLAINT OF SEVERE PAIN ON PERIRECTAL INCISION SITE. VSS, BREATHING VIA SIMPLE FACE MASK AT 7 L/MIN. WILL CONTINUE TO CLOSELY MONITOR.
--- NOTE | 2021-09-22 19:35 | NUR ---
SPOKE WITH DR GONZALEZ,SURGEON.PT IN PAIN, UNABLE TO GIVE MORPHINE AT THIS TIME,NOT DUE YET.ORDERED TO GIVE DILAUDID 1 MG Q4 HRS FOR SEVERE PAIN,TO GIVE 1 DOSE NOW.RD SANTOS, PTS PRIMARY NURSE AWARE
[2021-09-22 21:05] LABS: MAGNESIUM 1.8 mg/dL (1.8-2.4); PHOSPHORUS 3.1 mg/dL (2.5-4.9)
--- NOTE | 2021-09-22 22:15 | NUR ---
ACCUCHECK AT 2200 WAS BS 48. STOPPED INSULIN DRIP AND PROVIDED ORANGE JUICE, TOLERATED WELL. PATIENT AWAKE AND ALERT, STATED SHE FELT "SHAKY" AND NEW HER BS WAS LOW. CALLED ATTENDING PHYSICIAN AND PROVIDED ORDERS TO STOP IV INSULIN DRIP AND INCREASE IV FLUID D5 1/2 NS TO 250ML/HR. CARRIED OUT ORDERS. WILL CONTINUE TO MONITOR AND CONTINUE ACCUCHECK IN 15 MINUTES. ALL SAFETY MEASURES IN PLACE.
--- NOTE | 2021-09-22 22:15 | NUR ---
PHONE TO [facility], HALL CLEANER IS DR JACQUES, INFORMED DR JACQUES,BLOOD SUGAR 2200 IS 48; PT WAS GIVEN ORANGE JUICE; PER DR JACQUES, STOP INSULIN DRIP FOR NOW AND RESUME ONCE BLOOD SUGAR IS ABOVE 200; INCREASE IVF D5 1/2 NS AT 250ML/HR WHILE BLOOD SUGAR IS LOW.NO NEED TO ADMINISTER D50.RD SANTOS AWARE
--- NOTE | 2021-09-22 22:30 | NUR ---
BS RECHECKED; 56, PT ALERT AND ORIENTED,ANOTHER GLASS OF JUICE GIVEN.WILL CONTINUE TO CLOSELY MONITOR PT
--- NOTE | 2021-09-22 23:00 | NUR ---
BLOOD SUGAR ACCUCHECK 105. PATIENT IN NO APPARENT ACUTE DISTRESS. CONTINUES TO BE ALERT AND ORIENTED. VSS, IN NO SIGNS OF ACUTE DISTRESS. RUNNING D5 1/2 NS 250 ML/HR VIA R EJ. ALL SAFETY MEASURES IN PLACE. WILL CONTINUE TO MONITOR.
--- NOTE | 2021-09-22 23:21 | NUR ---
PER [facility], 1999 SPECIMEN NOT ENOUGH,THAT'S WHY THERE WAS NO RESULT FOR 1999 BMP.
[2021-09-23] VITALS (13 sets, daily range): BP systolic 100–135; BP diastolic 46–96
[2021-09-23] MEDS: BLOOD GLUCOSE MONITORING 1 DEV DEV FS SCH ×11 (01:05→21:29)
[2021-09-23] MEDS: DEXT 5% / NACL 0.45% 1,000 ML IV SCH ×2 (01:07→02:54)
--- NOTE | 2021-09-23 01:21 | NUR ---
PATIENT SLEEPING COMFORTABLY WITH NO SIGNS OF PAIN OR DISCOMFORT, VSS, BREATHING RA O2 SAT 100%. WILL CONTINUE TO MONITOR AND FOLLOW POC.
[2021-09-23 01:42] LABS: ANION GAP 13.3 (8-16); CARBON DIOXIDE 23.3 mmol/L (21-32); CREATININE 1.3 mg/dL (0.6-1.3); POTASSIUM 3.6 mmol/L (3.5-5.1)
--- NOTE | 2021-09-23 02:00 | NUR ---
BS ACCUCHECK 229, RESTARTED INSULIN DRIP ORDERED FOR BS LEVEL ABOVE 200. RUNNING INSULIN DRIP 0.05 UNITS/KG/HR. PATIENT IN NO APPARENT ACUTE DISTRESS, BREATHING AT ROOM AIR O2 SAT 100%, CONTINUES TO BE AOX4. WILL CONTINUE TO CLOSELY MONITOR.
[2021-09-23 02:01] LABS: MAGNESIUM 1.8 mg/dL (1.8-2.4); PHOSPHORUS 3.4 mg/dL (2.5-4.9)
[2021-09-23] MEDS: HYDROmorphone 1 MG/ML AMP IVP PRN ×4 (02:23→23:52)
--- NOTE | 2021-09-23 04:00 | NUR ---
DR. JACQUES FROM [facility] ASSESSED PATIENT DURING MORNING ROUNDS, GAVE VERBAL ORDER TO GIVE 15 UNITS OF LANTUS ONCE ANION GAP CLOSES, CONTINUE IV INSULIN DRIP FOR 2 HOURS FOLLOWING LANTUS ADMINISTRATION FOR INSULINS TO OVERLAP. ORDERS WILL BE PUT IN ONCE ANION GAP RESULTS ARE UPDATED AND RECORDED.
[2021-09-23] MEDS: NACL 0.9% 1,000 ML IV SCH (04:20)
[2021-09-23] MEDS: metroNIDAZOLE 500 MG/NS PREMIX 100 ML IV SCH ×3 (04:36→21:29)
[2021-09-23 05:19] LABS: POTASSIUM 3.3 mmol/L (3.5-5.1)
[2021-09-23 05:20] LABS: ANION GAP 13.5 (8-16); CARBON DIOXIDE 19.8 mmol/L (21-32); CREATININE 1.3 mg/dL (0.6-1.3)
--- NOTE | 2021-09-23 06:13 | NUR ---
SPOKE WITH DR JACQUES FROM [facility] TO REPORT PATIENTS BS OF [address] JACQUES CONFIRMED TO ADMINISTER 15 UNITS OF LANTUS INSULIN PREVIOUSLY ORDERED AND CONTINUE INSULIN DRIP FOR TWO HOURS.
[2021-09-23] MEDS: INSULIN LANTUS 100 UNITS/ML 10 ML VIAL SUBQ SCH (06:30)
[2021-09-23 07:03] LABS: HEMATOCRIT 25.2 % (36-48); HEMOGLOBIN 8.2 g/dL (12.0-16.0); MEAN CORPUSCULAR HEMOGLOBIN 28 pg (27-31); MEAN CORPUSCULAR HGB CONC 33 g/dL (33-37); MEAN CORPUSCULAR VOLUME 85.8 fL (80-94); PLATELET COUNT (AUTO) 1145 K/uL (140-450); RED BLOOD CELL COUNT(AUTO) 2.93 MIL/uL (4.20-5.40); RED CELL DISTRIBUTION WIDTH 14.3 % (11.6-13.7)
[2021-09-23 07:09] LABS: ALBUMIN 1.4 g/dL (3.4-5.0); ANION GAP 13.5 (8-16); CARBON DIOXIDE 20.8 mmol/L (21-32); CREATININE 1.3 mg/dL (0.6-1.3); MAGNESIUM 1.8 mg/dL (1.8-2.4); POTASSIUM 3.3 mmol/L (3.5-5.1); TOTAL BILIRUBIN 0.1 mg/dL (0.0-1.0)
--- NOTE | 2021-09-23 07:30 | NUR ---
ENDORSED CARE TO DAY SHIFT NURSE, ENDORSED CARE. PATIENT IN STABLE CONDITION BREATHING AT RA SAT 97%.
[2021-09-23 07:49] LABS: EOSINOPHILS % (MANUAL) 1 % (0-4); LYMPHOCYTES % (MANUAL) 6 % (20-46); MONOCYTES % (MANUAL) 4 % (5-12)
[2021-09-23] MEDS: MORPHINE SULFATE 2 MG/ML SYR IVP PRN ×3 (08:20→19:54)
[2021-09-23] MEDS: ENOXAPARIN 40 MG/0.4 ML SYR SUBQ SCH (08:26)
--- NOTE | 2021-09-23 08:30 | NUR ---
SHIN CATH INSERTED PER DR GEORGIE DING, 450ML URINE COLLECTED ALMOST IMMEDIATELY. PT TOLERATED WELL, WILL CONTINUE TO MONITOR.
[2021-09-23] MEDS: CEFEPIME 2,000 MG in DEXTROSE 5% 100 ML IV SCH (09:46)
[2021-09-23] MEDS ORDERED: CEFEPIME 2,000 MG in DEXTROSE 5% 100 ML IV SCH (10:00)
--- NOTE | 2021-09-23 11:43 | NUR ---
BLOOD SUGAR 63, PT REQUESTED SODA INSTEAD OF JUICE, SODA GIVEN, PT TOLERATED WELL, WILL CONTINUE TO MONITOR
[2021-09-23] MEDS ORDERED: VANCOMYCIN 1,000 MG in DEXTROSE 5% 250 ML IV SCH (12:00)
--- NOTE | 2021-09-23 13:21 | NUR ---
RECHECKED PT SUGAR 69, PT HAS FOOD AT BEDSIDE AND EATING, WILL CONTINUE TO MONITOR.
--- NOTE | 2021-09-23 15:54 | NUR ---
SPOKE TO DR JACQUES REGARDING, PT PER DR RAMIREZ TO DOWNGRADE TO TELE. WILL CONTINUE WITH ORDERS.
--- NOTE | 2021-09-23 18:00 | NUR ---
DRESSING SOILED, WOUND CLEANED, REPACKED WITH WET TO DRY DRESSING. PT TOLERATED WELL, WILL CONTINUE TO MONITOR.
--- NOTE | 2021-09-23 19:25 | NUR ---
ENDORSED PT TO MUSICAL THERAPIST NURSE ANA MARIA FOR CONTINUOUS OF CARE.
--- NOTE | 2021-09-23 19:45 | NUR ---
RECEIVED BEDSIDE REPORT FROM DAYSHIFT RN FOR CONTINUITY OF CARE. PT LAYING IN BED EATING DINNER. AO X4. LUNG SOUNDS CLEAR THROUGHOUT WITH NO SIGNS DISTRESS. HEART SOUNDS S1 AND S2. REJ 18G PATENT, DRY, AND INTACT. WOUND PRESENT TO KIMBERLEE-ANAL AREA, DRESSING IS INTACT WITH CLEAR RED DRAINAGE TO DRESSING BED. F/C IN PLACE DRAINING TO GRAVITY. PT COMPLAINT OF PAIN 7/10 THROBBING AND SORENESS TO WOUND AREA. PRN MORPHINE ADMINISTERED ORDERED. INITIAL ASSESSMENT COMPLETED. SAFETY MEASURES IN PLACE. MOTHER AT BEDSIDE AT THIS TIME. WILL CONTINUE TO MONITOR.
[2021-09-23 20:55] LABS: APPEARANCE,URINE SL CLOUDY (CLEAR); BILIRUBIN,URINE NEGATIVE (NEGATIVE); BLOOD, URINE TRACE-I (NEGATIVE); COLOR,URINE YELLOW (YELLOW); LEUKOCYTE ESTERASE ,URINE NEGATIVE (NEGATIVE); NITRITE, URINE NEGATIVE (NEGATIVE); UGLUCOSE NEGATIVE (NEGATIVE)
[2021-09-23 21:27] LABS: RBC,URINE 0-5 /HPF (0-5); WBC,URINE 20-60 /HPF (0-5); YEAST,URINE Few /HPF (None Seen)
[2021-09-23 21:28] LABS: COARSE GRANULAR CASTS,URINE 0-10 /LPF (None Seen); HYALINE CASTS, URINE 0-10 /LPF (None Seen)
--- NOTE | 2021-09-23 22:15 | NUR ---
PT REQUEST FOR BEEF BROTH AND EXTRA CRACKERS. PROVIDED. WILL CONTINUE TO MONITOR.
[2021-09-23] MEDS: ONDANSETRON 4 MG/2 ML VIAL IVP PRN (23:59)
[2021-09-24] VITALS: BP 128/76
--- NOTE | 2021-09-24 00:01 | NUR ---
PT COMPLAINT OF 8/10 THROBBING PAIN. PRN DILAUDID ADMINISTERED ORDERED. TOLERATED WELL. COMPLAINT OF NAUSEA. ZOFRAN GIVEN ORDERED. TOLERATED WELL. WILL CONTINUE TO MONITOR.
--- NOTE | 2021-09-24 02:08 | NUR ---
PT SLEEPING COMFORTABLY IN BED. NO SIGNS OF DISTRESS AT THIS TIME. WILL CONTINUE TO MONITOR.
[2021-09-24] MEDS: MORPHINE SULFATE 2 MG/ML SYR IVP PRN ×3 (02:30→14:36)
[2021-09-24 04:00] VITALS: BP 130/80
[2021-09-24] MEDS: metroNIDAZOLE 500 MG/NS PREMIX 100 ML IV SCH ×3 (04:47→21:00)
--- NOTE | 2021-09-24 06:00 | NUR ---
REPORT GIVEN TO [facility] LABEL CODER RN FOR CONTINUITY OF CARE.
--- NOTE | 2021-09-24 06:15 | NUR ---
PATIENT WAS BROUGHT TO [facility] FROM ICU. AAOX4. SHIN CATHETER IN PLACE, DRAINING WELL. NO ACUTE DISTRESS NOTED. RESPIRATION REGULAR NON LABORED. SAFETY MEASURES IN PLACE. CALL LIGHT WITHIN REACH.
[2021-09-24 06:33] LABS: ALBUMIN 1.2 g/dL (3.4-5.0); ANION GAP 11.5 (8-16); CREATININE 0.8 mg/dL (0.6-1.3); MAGNESIUM 1.4 mg/dL (1.8-2.4); POTASSIUM 3.5 mmol/L (3.5-5.1); TOTAL BILIRUBIN 0.1 mg/dL (0.0-1.0)
[2021-09-24 06:35] LABS: BASOPHILS # (AUTO) 0.1 K/uL (0.00-0.22); BASOPHILS % (AUTO) 1.5 % (0.0-2.0); EOSINOPHILS # (AUTO) 0.1 K/uL (0-0.4); EOSINOPHILS % (AUTO) 1.2 % (0.0-4.0); HEMATOCRIT 22.1 % (36-48); HEMOGLOBIN 7.2 g/dL (12.0-16.0); LYMPHOCYTES # (AUTO) 2.4 K/uL (2.5-16.5); LYMPHOCYTES % (AUTO) 30.5 % (20.5-51.1); MEAN CORPUSCULAR HEMOGLOBIN 28 pg (27-31); MEAN CORPUSCULAR HGB CONC 33 g/dL (33-37); MEAN CORPUSCULAR VOLUME 84.6 fL (80-94); MONOCYTES # (AUTO) 0.3 K/uL (0.8-1.0); MONOCYTES % (AUTO) 3.8 % (1.7-9.3); NEUTROPHILS # (AUTO) 4.9 K/uL (1.8-7.7); PLATELET COUNT (AUTO) 894 K/uL (140-450); RED BLOOD CELL COUNT(AUTO) 2.62 MIL/uL (4.20-5.40); RED CELL DISTRIBUTION WIDTH 14.4 % (11.6-13.7)
[2021-09-24 06:42] LABS: WHITE BLOOD COUNT (AUTO) 7.8 K/uL (4.8-10.8)
[2021-09-24] MEDS: BLOOD GLUCOSE MONITORING 1 DEV DEV FS SCH ×4 (06:48→21:00)
--- NOTE | 2021-09-24 07:20 | NUR ---
ENDORSED TO AM NURSE FOR CONTINUITY OF CARE. PATIENT IS STABLE.
[2021-09-24 08:00] VITALS: BP 138/92
[2021-09-24] MEDS: INSULIN LANTUS 100 UNITS/ML 10 ML VIAL SUBQ SCH (08:42)
[2021-09-24] MEDS: ENOXAPARIN 40 MG/0.4 ML SYR SUBQ SCH (08:42)
[2021-09-24] MEDS: CEFEPIME 2,000 MG in DEXTROSE 5% 100 ML IV SCH (09:21)
--- NOTE | 2021-09-24 10:25 | NUR ---
Received patient in bed, A/O x3 c/o pain and Morphine IV given. IV ABT started, Lovenox SQ. given. Will continue to monitor.
[2021-09-24] MEDS: HYDROmorphone 1 MG/ML AMP IVP PRN ×3 (11:12→23:12)
--- NOTE | 2021-09-24 11:46 | NUR ---
patient seen by Dr. Pradhan to eval the wound care. Dressing changed and was given dilaudid prior to wound care. Wound packed and cleansed. Will continue to monitor.
--- NOTE | 2021-09-24 12:01 | NUR ---
09/24/21 RD INITIAL ASSESSMENT COMPLETED PLEASE REFER TO NUTRITION ASSESSMENT UNDER CARE ACTIVITY FOR ESTIMATED NUTRITIONAL NEEDS. 1. CONTINUE [facility] DIET TOLERATED 2. OBTAIN FOOD PREFERENCES 3. PROVIDE DAYANNA BID PER RD PROTOCOL 4. RD TO FOLLOW-UP 2-3 DAYS,HIGH RISK REVIEWED BY BRITTA VÁSQUEZ RD
[2021-09-24 12:51] VITALS: BP 144/97
[2021-09-24] MEDS: VANCOMYCIN 1,000 MG in DEXTROSE 5% 250 ML IV SCH (13:09)
--- NOTE | 2021-09-24 13:15 | NUR ---
WOUND CARE EVALUATION NOTES: REASON FOR EVALUATION: RIGHT BUTTOCK WOUND S/P I&D ON 09/22/21 WOUND ASSESSMENT COMPLETED ON THIS 31 Y/O FEMALE ADMITTED TO [facility] UNIT FOR DKA. PATIENT IS FROM HOME. PAST MEDICAL HISTORY INCLUDES DM I. ALL ABOVE INFORMATION WAS OBTAINED FROM THE ADMISSION H&P. LABS ARE WBC 7.8, H/H 7.2/22.1, GLUCOSE 175, ALBUMIN 1.2. PATIENT IS AAOX3, VERBAL, APPROPRIATE AFFECT. SKIN IS WARM TO TOUCH. ABLE TO TURN SELF, REQUIRES ASSISTANCE WITH BEDPAN. PLAN OF WOUND CARE DISCUSSED WITH PATIENT AND PRIMARY RN. PATIENT VERBALIZED UNDERSTANDING. REINFORCEMENT NEEDED. PATIENT ADMITTED WITH RIGHT KIMBERLEE-ANAL ABSCESS S/P I&D ON 09/22/21. COMORBIDITIES RELATED TO FURTHER SKIN BREAKDOWN SUCH DECREASED MOBILITY AND DECREASED FUNCTIONAL ABILITY, LOW ALBUMIN LEVEL, AND HISTORY OF DM I. INTEGUMENTARY: - S/P PERIANAL ABSCESS INCISION AND DRAINAGE ON 09/22/21, MEASURING 7 X 4 X 5 CM WITH TUNNELING ON 7 O'CLOCK AND 9 O'CLOCK, NO UNDERMINING. WOUND BED CLEAN, GRANULATING, LARGE SERSANGUINOUS DISCHARGE, NO ODOR. KIMBERLEE-WOUND INTACT, PINK. RECOMMENDATIONS: - S/P PERIANAL ABSCESS INCISION AND DRAINAGE ON 09/22/21 - CLEANSE WITH NS, PAT DRY, PACK WOUND DEEPLY WITH DRY KERLIX ROLL GAUZE, COVER WITH DRY DRESSINGS, AND SECURE WITH PAPER TAPE DAILY AND PRN IF SOILED. - KEEP SKIN DRY AND CLEAN AT ALL TIMES. - RD CONSULT RECOMMENDATIONS DISCUSSED WITH PRIMARY RN. WILL FOLLOW-UP PATIENT Q7-10 DAYS AND PRN. PLEASE CONTACT WOUND CARE NURSE FOR ANY CONCERNS AND CHANGES IN WOUND CONDITION.
--- NOTE | 2021-09-24 13:58 | NUR ---
AWAKE AND ALERT VERBALLY RESPONSIVE PATIENT REFUSING INCENTIVE SPIROMETRY THERAPY AT THIS TIME DUE PAIN FROM SURGICAL PROCEDURE FOR DECUBITUS ULCERS PIPELINE GANG SUPERVISOR TO ATTEMPT AT A LATER TIME
--- NOTE | 2021-09-24 14:47 | NUR ---
Patient complain of pain to surgical decubitis ulcer 8 out of 10. Morphine 2 mg given IVP. Vancomycin infusing, no reaction noted. will continue to monitor.
[2021-09-24] MEDS ORDERED: HYDROcodone/APAP 5/325 MG 1 TAB TAB PO PRN (15:25)
[2021-09-24 16:00] VITALS: BP 139/99
[2021-09-24] MEDS: INSULIN LISPRO SLIDING SCALE 100 UNITS/ML VIAL SUBQ PRN (23:03)
[2021-09-25] VITALS: BP 124/84
[2021-09-25] MEDS: GAUZE TP SCH ×2 (01:00→13:06)
[2021-09-25] MEDS: MORPHINE SULFATE 2 MG/ML SYR IVP PRN ×4 (02:35→21:19)
[2021-09-25 04:00] VITALS: BP 119/80
[2021-09-25] MEDS: metroNIDAZOLE 500 MG/NS PREMIX 100 ML IV SCH ×3 (04:55→22:51)
--- NOTE | 2021-09-25 05:30 | NUR ---
the pateint vitals are stable. she complained of pain 8 on scale 0-10. Dilaudid was given. she sleeps for couple of hours. comfort and safety measures were provided. her bs 198 . insulin was given . bed si low position . the patient education regarding self reposition was provided.
[2021-09-25] MEDS: BLOOD GLUCOSE MONITORING 1 DEV DEV FS SCH ×4 (06:53→21:20)
--- NOTE | 2021-09-25 07:24 | NUR ---
RECEIVED BEDSIDE REPORT FROM GLASSWARE MAKER NURSE. PT IS BREATHING UNLABORED AND EVEN. NO S/S OF DISTRESS. PT IS STABLE.
[2021-09-25 08:00] VITALS: BP 146/93
[2021-09-25] MEDS: INSULIN LANTUS 100 UNITS/ML 10 ML VIAL SUBQ SCH (09:19)
[2021-09-25] MEDS: ENOXAPARIN 40 MG/0.4 ML SYR SUBQ SCH (09:20)
[2021-09-25] MEDS: CEFEPIME 2,000 MG in DEXTROSE 5% 100 ML IV SCH ×2 (09:21→21:22)
[2021-09-25 09:23] LABS: BASOPHILS # (AUTO) 0.1 K/uL (0.00-0.22); BASOPHILS % (AUTO) 1.8 % (0.0-2.0); EOSINOPHILS # (AUTO) 0.2 K/uL (0-0.4); HEMATOCRIT 23.4 % (36-48); HEMOGLOBIN 7.6 g/dL (12.0-16.0); LYMPHOCYTES # (AUTO) 2.2 K/uL (2.5-16.5); LYMPHOCYTES % (AUTO) 36.8 % (20.5-51.1); MEAN CORPUSCULAR HEMOGLOBIN 28 pg (27-31); MEAN CORPUSCULAR HGB CONC 32 g/dL (33-37); MEAN CORPUSCULAR VOLUME 84.9 fL (80-94); MONOCYTES # (AUTO) 0.3 K/uL (0.8-1.0); MONOCYTES % (AUTO) 4.3 % (1.7-9.3); NEUTROPHILS # (AUTO) 3.2 K/uL (1.8-7.7); NEUTROPHILS % (AUTO) 53.1 % (42.2-75.2); PLATELET COUNT (AUTO) 757 K/uL (140-450); RED BLOOD CELL COUNT(AUTO) 2.76 MIL/uL (4.20-5.40); RED CELL DISTRIBUTION WIDTH 14.2 % (11.6-13.7); WHITE BLOOD COUNT (AUTO) 6.1 K/uL (4.8-10.8)
[2021-09-25] MEDS: HYDROmorphone 1 MG/ML AMP IVP PRN ×2 (09:26→18:53)
[2021-09-25 09:50] LABS: ALBUMIN 1.2 g/dL (3.4-5.0); ANION GAP 10.8 (8-16); CARBON DIOXIDE 22.9 mmol/L (21-32); CREATININE 0.7 mg/dL (0.6-1.3); MAGNESIUM 1.4 mg/dL (1.8-2.4); POTASSIUM 3.7 mmol/L (3.5-5.1); TOTAL BILIRUBIN 0.1 mg/dL (0.0-1.0)
--- NOTE | 2021-09-25 10:22 | NUR ---
PAIN REASSESSED ONE HOUR AFTER PAIN MED GIVEN AT 0922. PAIN SUBSIDED.
--- NOTE | 2021-09-25 10:45 | NUR ---
DC PLANNING: PATIENT HAS AN ORDER TO GO TO SNF FOR WOUND CARE. FAXED TO [facility], [facility], [facility] , [facility] AND [facility]. CM TO FOLLOW Addendum: 09/25/21 at 1528 by Ivania Inman RN DC PLANNING: RECEIVED A CALL FROM [facility], UNABLE TO ACCEPT PATIENT , [facility] NO FEMALE BED AVAILABLE, [facility] BECAUSE OF PT'S REFUSAL BEHAVIOR UNABLE TO ACCEPT PATIENT CALLED [facility] SPOKE WITH OSBALDO THOMAS NOTIFIED HIM LOTS OF SNF'S NOT ACCEPTING PATIENT. NOTIFIED AND SAIGE ROBLERO. CM TO FOLLOW Addendum: 10/02/21 at 1530 by Ivania Inman RN DC: PLANNING: SPOKE WITH PATIENT REGARDING DISCHARGE STATED HER MOM WILL ARRANGE TO SEND HER TO [facility] OR HER [facility] FAXED TO [facility], [facility], [facility], AND [facility]. CM TO FOLLOW
[2021-09-25] MEDS: VANCOMYCIN 1,000 MG in DEXTROSE 5% 250 ML IV SCH (13:00)
--- NOTE | 2021-09-25 14:22 | NUR ---
PAIN REASSESSED ONE HOUR AFTER PAIN MED GIVEN AT 1322. PAIN SUBSIDED.
[2021-09-25] MEDS: INSULIN LISPRO SLIDING SCALE 100 UNITS/ML VIAL SUBQ PRN ×2 (14:38→21:45)
[2021-09-25 16:00] VITALS: BP 136/79
--- NOTE | 2021-09-25 18:53 | NUR ---
PT GIVEN PAIN MEDS AR PER MD ORDER. WOUND CARE PERFORMED.
--- NOTE | 2021-09-25 19:20 | NUR ---
ENDORSED PT TO CENTRAL SERVICE SUPPLY DISTRIBUTOR NURSE FOR CONTINUITY OF CARE.
--- NOTE | 2021-09-25 19:21 | NUR ---
RECEIVED PATIENT REPORT FROM AM SHIFT NURSE FOR CONTINUITY OF CARE. PATIENT IN BED AWAKE , ALERT AND VERBALLY RESPONSIVE. ABLE TO VERBALIZED NEEDS. BREATHING EVEN AND UNLABORED WITH NO SOB NOTED. NOT IN DISTRESS. DENIES ANY PAIN OR DISCOMFORT AT THIS TIME. ALL SAFETY MEASURES IN PLACE. CALL LIGHT WITHIN REACH. WILL CONTINUE WITH THE CURRENT PLAN OF CARE.
--- NOTE | 2021-09-25 20:00 | NUR ---
RECEIVED REPORT FROM LAB NURSE REGARDING THE RESULTS OF WOUND CULTURE. RELAYED TO DR AMEZCUA AND MADE AWARE OF THE RESULTS.
--- NOTE | 2021-09-25 20:00 | NUR ---
Patient's Plan of Care was discussed and reviewed with [employer]: VIOLET HENNESSY
--- NOTE | 2021-09-25 21:00 | NUR ---
ADMINISTERED SCHEDULE MEDICATIONS PER MD ORDER. KENNY WELL. NO ASE NOTED.
--- NOTE | 2021-09-25 21:20 | NUR ---
ANSWERED PATIENT'S CALL LIGHT. PATIENT COMPLAINT OF PAIN 05/08. REQUESTING FOR PAIN MEDICATION. TOM AMOS ADMINISTERED MS IV PER MD ORDER.
--- NOTE | 2021-09-25 23:37 | NUR ---
ROUNDED ON PATIENT. SLEEPING WELL. BREATHING EVEN AND UNLABORED WITH NO SOB NOTED. ALL SAFETY MEASURES IN PLACE. CALL LIGHT WITHIN REACH. WILL CONTINUE TO MONITOR.
[2021-09-26] VITALS: BP 148/94
[2021-09-26] MEDS: GAUZE TP SCH ×2 (01:00→13:10)
--- NOTE | 2021-09-26 01:38 | NUR ---
CHECKED ON PATIENT. PATIENT IS AWAKE AND COMPLAINING OF PAIN 10/10. PATIENT IS REQUESTING PAIN MEDICATION. WILL ADMINISTER PER MD ORDER.
[2021-09-26] MEDS: HYDROmorphone 1 MG/ML AMP IVP PRN ×3 (01:51→17:20)
--- NOTE | 2021-09-26 03:25 | NUR ---
CHECKED ON PATIENT. PATIENT ASLEEP. CALL LIGHT WITHIN REACH. WILL CONTINUE TO MONITOR.
[2021-09-26] MEDS: metroNIDAZOLE 500 MG/NS PREMIX 100 ML IV SCH ×3 (05:22→21:19)
[2021-09-26] MEDS: MORPHINE SULFATE 2 MG/ML SYR IVP PRN ×2 (05:23→21:26)
--- NOTE | 2021-09-26 05:35 | NUR ---
ANSWERED PATIENT CALL LIGHT. PATIENT COMPLAINT OF PAIN 07/08. WILL ADMINISTERED PAIN MEDICATION PER MD ORDER.
[2021-09-26 06:41] LABS: ANION GAP 13.1 (8-16); CARBON DIOXIDE 21.4 mmol/L (21-32); CREATININE 0.6 mg/dL (0.6-1.3); POTASSIUM 4.5 mmol/L (3.5-5.1)
[2021-09-26 06:46] LABS: BASOPHILS # (AUTO) 0.2 K/uL (0.00-0.22); EOSINOPHILS # (AUTO) 0.3 K/uL (0-0.4); EOSINOPHILS % (AUTO) 4.5 % (0.0-4.0); HEMATOCRIT 22.8 % (36-48); HEMOGLOBIN 7.7 g/dL (12.0-16.0); LYMPHOCYTES # (AUTO) 2.2 K/uL (2.5-16.5); LYMPHOCYTES % (AUTO) 38.8 % (20.5-51.1); MEAN CORPUSCULAR HEMOGLOBIN 28 pg (27-31); MEAN CORPUSCULAR HGB CONC 34 g/dL (33-37); MEAN CORPUSCULAR VOLUME 83.5 fL (80-94); MONOCYTES # (AUTO) 0.3 K/uL (0.8-1.0); MONOCYTES % (AUTO) 4.9 % (1.7-9.3); NEUTROPHILS # (AUTO) 2.8 K/uL (1.8-7.7); NEUTROPHILS % (AUTO) 48.8 % (42.2-75.2); PLATELET COUNT (AUTO) 742 K/uL (140-450); RED BLOOD CELL COUNT(AUTO) 2.73 MIL/uL (4.20-5.40); RED CELL DISTRIBUTION WIDTH 14.1 % (11.6-13.7); WHITE BLOOD COUNT (AUTO) 5.8 K/uL (4.8-10.8)
[2021-09-26] MEDS: BLOOD GLUCOSE MONITORING 1 DEV DEV FS SCH ×4 (07:16→21:13)
[2021-09-26] MEDS: INSULIN LISPRO SLIDING SCALE 100 UNITS/ML VIAL SUBQ PRN ×3 (07:17→21:37)
--- NOTE | 2021-09-26 07:30 | NUR ---
ENDORSED PATIENT REPORT TO AM SHIFT NURSE FOR CONTINUITY OF CARE. PATIENT IS STABLE.
--- NOTE | 2021-09-26 07:31 | NUR ---
RECEIVED BEDSIDE REPORT FROM LOAN REVIEW MANAGER NURSE. PT IS BREATHING UNLABORED AND EVEN. NO S/S OF DISTRESS. PT IS STABLE.
[2021-09-26 08:00] VITALS: BP 143/93
[2021-09-26] MEDS: INSULIN LANTUS 100 UNITS/ML 10 ML VIAL SUBQ SCH (09:00)
[2021-09-26] MEDS: ENOXAPARIN 40 MG/0.4 ML SYR SUBQ SCH (09:00)
[2021-09-26] MEDS: CEFEPIME 2,000 MG in DEXTROSE 5% 100 ML IV SCH ×2 (09:00→22:23)
--- NOTE | 2021-09-26 11:29 | NUR ---
REASSESSED PAIN AFTER ONE HOUR OF PAIN MED ADMINISTRTION. PAIN RESOLVED. PT IS BREATHING UNLABORED AND EVEN. NO S/S OF DISTRESS. PT IS STABLE.
--- NOTE | 2021-09-26 11:30 | NUR ---
BS OF 149. NO INSULIN COVERAGE NEEDED AT THIS TIME.
[2021-09-26] MEDS: VANCOMYCIN 750 MG in DEXTROSE 5% 250 ML IV SCH (13:00)
[2021-09-26 16:00] VITALS: BP 136/84
--- NOTE | 2021-09-26 16:30 | NUR ---
BS OF 258. COVERED WITH INSULIN PER MD ORDER.
--- NOTE | 2021-09-26 17:40 | NUR ---
PERFORMED WOUND CARE AND PT WAS IN PAIN BUT WAS ABLE TO TOLERATE WITH OPAIN MEDICATION.
--- NOTE | 2021-09-26 18:20 | NUR ---
REASSESSED PAIN AFTER ONE HOUR OF PAIN MED ADMINISTRTION. PAIN RESOLVED. PT IS BREATHING UNLABORED AND EVEN. NO S/S OF DISTRESS. PT IS STABLE.
--- NOTE | 2021-09-26 19:14 | NUR ---
ENDORSED PT TO ASPHALT PAVING SUPERVISOR NURSE FOR CONTINUITY OF CARE.
--- NOTE | 2021-09-26 19:15 | NUR ---
RECEIVED PATIENT REPORT FROM AM SHIFT NURSE FOR CONTINUITY OF CARE. PATIENT IN BED AWAKE, ALERT AND VERBALLY RESPONSIVE. HOB IN SEMI-FOWLERS POSITION. ABLE TO VERBALIZED NEEDS. MOM ON BEDSIDE. BREATHING EVEN AND UNLABORED WITH NO SOB NOTED. NOT IN DISTRESS. DENIES ANY PAIN OR DISCOMFORT AT THIS TIME. ALL SAFETY MEASURES ARE IN PLACE. CALL LIGHT WITHIN REACH. WILL CONTINUE WITH THE CURRENT PLAN OF CARE
--- NOTE | 2021-09-26 21:27 | NUR ---
TOM GAMBINO ADMINISTERED SCHEDULED MEDICATION PER MD ORDER. CHECK PATIENT BLOOD SUGAR AND ADMINISTERED INSULIN PER COVERAGE. PATIENT TOLERATED WELL.
--- NOTE | 2021-09-26 21:30 | NUR ---
ANSWERED PATIENT CALL LIGHT. PATIENT COMPLAINT OF PAIN 07/08. PATIENT REQUEST FOR PAIN MEDICATION. TOM GAMBINO ADMINISTERED PAIN MEDICATION PER MD ORDER.
[2021-09-27] VITALS: BP 145/96
--- NOTE | 2021-09-27 00:20 | NUR ---
ROUNDED ON PATIENT. PATIENT ASLEEP WITH HOB SLIGHTLY ELEVATED. BREATHING EVEN AND UNLABORED WITH NO SOB NOTED. ALL SAFETY MEASURES IN PLACE. CALL LIGHT WITHIN REACH. WILL CONTINUE TO MONITOR.
[2021-09-27] MEDS: VANCOMYCIN 750 MG in DEXTROSE 5% 250 ML IV SCH ×2 (01:13→12:12)
[2021-09-27] MEDS: GAUZE TP SCH ×2 (01:29→13:00)
[2021-09-27] MEDS: HYDROmorphone 1 MG/ML AMP IVP PRN ×4 (01:50→22:43)
--- NOTE | 2021-09-27 01:55 | NUR ---
PATIENT COMPLAINT OF PAIN 07/08. TOM HERRERA ADMINISTERED PRN DILAUDID PER MD ORDER. TOLERATED WELL. NO ASE NOTED. CALL LIGHT WITHIN REACH. WILL CONTINUE TO MONITOR.
--- NOTE | 2021-09-27 03:21 | NUR ---
CHECKED ON PATIENT. PATIENT ASLEEP. CALL LIGHT WITHIN REACH. WILL CONTINUE TO MONITOR.
--- NOTE | 2021-09-27 05:37 | NUR ---
Patient's Plan of Care was discussed and reviewed with EPOXY FABRICATION SUPERVISOR: february
--- NOTE | 2021-09-27 05:40 | NUR ---
PATIENT COMPLAINT OF PAIN 06/08. PAIN MEDICATIONS ADMINISTERED BY TOM HERRERA PER MD ORDER. TOLERATED WELL. NO ASE NOTED. CALL LIGHT WITHIN REACH. WILL CONTINUE TO MONITOR.
[2021-09-27] MEDS: BLOOD GLUCOSE MONITORING 1 DEV DEV FS SCH ×4 (06:34→20:44)
[2021-09-27] MEDS: INSULIN LISPRO SLIDING SCALE 100 UNITS/ML VIAL SUBQ PRN ×4 (06:35→21:03)
[2021-09-27 06:36] LABS: BASOPHILS # (AUTO) 0.1 K/uL (0.00-0.22); BASOPHILS % (AUTO) 1.8 % (0.0-2.0); EOSINOPHILS # (AUTO) 0.3 K/uL (0-0.4); EOSINOPHILS % (AUTO) 3.9 % (0.0-4.0); HEMATOCRIT 21.2 % (36-48); HEMOGLOBIN 7.2 g/dL (12.0-16.0); LYMPHOCYTES % (AUTO) 43.2 % (20.5-51.1); MEAN CORPUSCULAR HEMOGLOBIN 28 pg (27-31); MEAN CORPUSCULAR HGB CONC 34 g/dL (33-37); MEAN CORPUSCULAR VOLUME 83.3 fL (80-94); MONOCYTES # (AUTO) 0.3 K/uL (0.8-1.0); MONOCYTES % (AUTO) 4.8 % (1.7-9.3); NEUTROPHILS # (AUTO) 3.2 K/uL (1.8-7.7); NEUTROPHILS % (AUTO) 46.3 % (42.2-75.2); PLATELET COUNT (AUTO) 644 K/uL (140-450); RED BLOOD CELL COUNT(AUTO) 2.55 MIL/uL (4.20-5.40); RED CELL DISTRIBUTION WIDTH 14.4 % (11.6-13.7); WHITE BLOOD COUNT (AUTO) 6.9 K/uL (4.8-10.8)
[2021-09-27 06:53] LABS: ANION GAP 14.2 (8-16); CARBON DIOXIDE 20.1 mmol/L (21-32); CREATININE 0.8 mg/dL (0.6-1.3); POTASSIUM 5.3 mmol/L (3.5-5.1)
--- NOTE | 2021-09-27 07:30 | NUR ---
ENDORSED PATIENT TO AM SHIFT NURSE FOR CONTINUITY OF CARE. PATIENT IS STABLE.
[2021-09-27 08:00] VITALS: BP 141/101
--- NOTE | 2021-09-27 08:32 | NUR ---
RECEIVED PT AWAKE, COMPLAINING OF PAIN ON HER BUTTOCKS, WILL MEDICATE ORDER, SKIN WARM TO TOUCH RESP. EVEN AND UNLABORED, CALL LIGHT WITHIN EASY REACH, IV ON RIGHT IJ INTACT, PATIENT REQUESTING TO PUT MORE DRESSING ON HER BUTTOCKS.
[2021-09-27] MEDS: CEFEPIME 2,000 MG in DEXTROSE 5% 100 ML IV SCH (08:44)
[2021-09-27] MEDS: ENOXAPARIN 40 MG/0.4 ML SYR SUBQ SCH (09:07)
[2021-09-27] MEDS: INSULIN LANTUS 100 UNITS/ML 10 ML VIAL SUBQ SCH (09:08)
--- NOTE | 2021-09-27 11:14 | NUR ---
09/27/21 RD F/U COMPLETED PLEASE REFER TO NUTRITION ASSESSMENT UNDER CARE ACTIVITY FOR ESTIMATED NUTRITIONAL NEEDS. 1. CONTINUE [facility] DIET TOLERATED 2. CONTINUE DAYANNA BID 3. RD TO FOLLOW-UP 3-5 DAYS,MODERATE RISK REVIEWED BY BRITTA VÁSQUEZ RD
[2021-09-27] MEDS: MORPHINE SULFATE 2 MG/ML SYR IVP PRN ×2 (12:21→19:24)
[2021-09-27] MEDS: metroNIDAZOLE 500 MG/NS PREMIX 100 ML IV SCH ×2 (14:33→22:50)
[2021-09-27 17:47] VITALS: BP_SYST 141; BP_SYST 181; BP_DIAS 101; BP_DIAS 103
--- NOTE | 2021-09-27 19:20 | NUR ---
RECEIVED BEDSIDE REPORT FROM MORNING SHIFT NURSE FOR CONTINUITY OF CARE. PATIENT IS STABLE IN BED. A&OX4. VERBALLY RESPONSIVE AND ABLE TO COMMUNICATE NEEDS. STATES 10/10 PAIN IN PELVIC REGION. WILL ENDORSE TO RN FOR PRN COVERAGE PER MD ORDER. RESPIRATIONS EVEN AND UNLABORED. ON ROOM AIR WITH NO APPARENT S/SX OF ACUTE DISTRESS. IV SITE TO THE RIJ IS INTACT, PATENT, AND ASYMPTOMATIC SALINE LOCKED. PATIENT IS CONTINENT. WOUND CARE ENDORSED. PLAN OF CARE AND WHITE COMMUNICATION BOARD UPDATED. BED IN LOW/LOCKED POSITION. CALL LIGHT WITHIN REACH. PATIENT IS ON CONTACT PRECAUTION. SIGNS AND PROPER PPE ARE VISIBLE. PATIENT IS ENCOURAGED TO CALL FOR ANY NEEDS/ASSISTANCE. WILL CONTINUE TO MONITOR.
[2021-09-27 20:00] VITALS: BP 145/99
--- NOTE | 2021-09-27 20:00 | NUR ---
REVIEWED PLAN OF CARE WITH DAIANA BHATIA LVN AND WILL CONTINUE WITH PLAN OF CARE.
--- NOTE | 2021-09-27 21:20 | NUR ---
CHECKED PATIENT'S BLOOD SUGAR AND COVERAGE NEEDED PER MD ORDER. PATIENT REPORTS THAT NEXT DILAUDID IS DUE IN AN HOUR. WILL ENDORSE TO RN FOR IV COVERAGE. RESPIRATIONS EVEN AND UNLABORED WITH NO APPARENT S/SX OF ACUTE DISTRESS. SNACKS PROVIDED. WHITE COMMUNICATION BOARD UPDATED. ALL SAFETY MEASURES IN PLACE. CALL LIGHT WITHIN REACH. WILL CONTINUE TO MONITOR.
--- NOTE | 2021-09-27 23:20 | NUR ---
CHECKED PATIENT. STABLE AND ASLEEP. CHEST IS RISING AND FALLING SYMMETRICALLY. RESPIRATIONS EVEN AND UNLABORED WITH NO APPARENT S/SX OF ACUTE DISTRESS. WHITE COMMUNICATION BOARD UPDATED. ALL SAFETY MEASURES IN PLACE. CALL LIGHT WITHIN REACH. WILL CONTINUE TO MONITOR.
[2021-09-28] MEDS: CEFEPIME 2,000 MG in DEXTROSE 5% 100 ML IV SCH ×3 (00:13→21:42)
[2021-09-28] MEDS: MORPHINE SULFATE 2 MG/ML SYR IVP PRN ×3 (01:20→15:17)
[2021-09-28] MEDS: GAUZE TP SCH ×2 (01:20→13:26)
--- NOTE | 2021-09-28 01:20 | NUR ---
ANSWERED CALL LIGHT. PATIENT IS C/O 6/10 RIGHT HIP PAIN. WILL ENDORSE TO RN FOR IV PRN PER MD ORDER. RESPIRATIONS EVEN AND UNLABORED WITH NO APPARENT S/SX OF ACUTE DISTRESS. WHITE COMMUNICATION BOARD UPDATED. ALL SAFETY MEASURES IN PLACE. CALL LIGHT WITHIN REACH. WILL CONTINUE TO MONITOR.
[2021-09-28] MEDS: VANCOMYCIN 750 MG in DEXTROSE 5% 250 ML IV SCH ×2 (01:30→13:57)
--- NOTE | 2021-09-28 03:20 | NUR ---
ROUNDED ON PATIENT. STABLE AND ASLEEP. CHEST IS RISING AND FALLING SYMMETRICALLY. RESPIRATIONS EVEN AND UNLABORED WITH NO APPARENT S/SX OF ACUTE DISTRESS. WHITE COMMUNICATION BOARD UPDATED. ALL SAFETY MEASURES IN PLACE. CALL LIGHT WITHIN REACH. WILL CONTINUE TO MONITOR.
[2021-09-28] MEDS: metroNIDAZOLE 500 MG/NS PREMIX 100 ML IV SCH ×3 (05:07→20:25)
--- NOTE | 2021-09-28 05:20 | NUR ---
ANSWERED CALL LIGHT. PATIENT IS C/O 8/10 RIGHT BUTTOCK PAIN. WILL ENDORSE TO RN FOR IV PRN PER MD ORDER. RESPIRATIONS EVEN AND UNLABORED WITH NO APPARENT S/SX OF ACUTE DISTRESS. WHITE COMMUNICATION BOARD UPDATED. ALL SAFETY MEASURES IN PLACE. CALL LIGHT WITHIN REACH. WILL CONTINUE TO MONITOR.
[2021-09-28] MEDS: HYDROmorphone 1 MG/ML AMP IVP PRN ×3 (05:21→20:37)
[2021-09-28] MEDS: BLOOD GLUCOSE MONITORING 1 DEV DEV FS SCH ×4 (06:30→20:50)
[2021-09-28] MEDS: INSULIN LISPRO SLIDING SCALE 100 UNITS/ML VIAL SUBQ PRN ×4 (06:32→20:52)
--- NOTE | 2021-09-28 07:20 | NUR ---
ENDORSED PATIENT TO MORNING SHIFT NURSE FOR CONTINUITY OF CARE. PATIENT IS STABLE.
--- NOTE | 2021-09-28 07:30 | NUR ---
RECEIVED REPORT FROM CYCLE ANALYST NURSE FOR CONTINUITY OF CARE. PATIENT IS RESTING IN BED. NO S/S OF DISTRESS. ALL SAFETY PRECAUTIIONS IN PLACE.
[2021-09-28 08:00] VITALS: BP 151/97
[2021-09-28] MEDS: FLUCONAZOLE 100 MG TAB PO SCH (09:20)
[2021-09-28] MEDS: ENOXAPARIN 40 MG/0.4 ML SYR SUBQ SCH (09:22)
[2021-09-28] MEDS: INSULIN LANTUS 100 UNITS/ML 10 ML VIAL SUBQ SCH (09:23)
--- NOTE | 2021-09-28 13:30 | NUR ---
CHANGED PATIENT'S WOUND DRESSING. NO DRAINAGE NOTED. PATIENT DID NOT COMPLAIN OF ANY PAIN DURING CHANGE. PATIENT TOLERATED ACTIVITY WELL. ALL SAFETY PRECAUTIONS IN PLACE.
[2021-09-28 16:00] VITALS: BP 164/105
--- NOTE | 2021-09-28 16:05 | NUR ---
PATIENT AWAKE AND LAYING IN BED. NO S/S OF DISTRESS. ALL SAFETY PRECAUTIONS IN PLACE.
--- NOTE | 2021-09-28 19:30 | NUR ---
RECEIVED PT SLEEPING, EASILY AROUSABLE, AAOX4, NO SOB NOTED, ON 2L NC, IVF INFUSING AT TKO RATE, MAINTAINED ON DROPLET PRECAUTION FOR R/O KIP KUMAR IN PLACE DRAINING WELL, SAFETY MEASURES IN PLACE, CALL LIGHT WITHIN REACH. Addendum: 09/29/21 at 0825 by Derek Jeronimo RN CHARTED ON WRONG PT
--- NOTE | 2021-09-28 19:45 | NUR ---
ENDORSED PATIENT TO PERCH MACHINE INSPECTOR RN FOR CONTINUITY OF CARE. PATIENT IS STABLE.
--- NOTE | 2021-09-28 19:46 | NUR ---
RECEIVED REPORT FROM AM NURSE. PATIENT IS AWAKE IN BED RESTING. NO ACUTE DISTRESS NOTED. BREATHING EVEN UNLABORED. SAFETY MEASURES IN PLACE. CALL LIGHT WITHIN REACH. SHIN CATHETER IN PLACE DRAINING WELL. NO COMPLAINTS OF PAIN AT THIS TIME. WILL CONTINUE TO MONITOR.
[2021-09-28 20:00] VITALS: BP 149/99
--- NOTE | 2021-09-28 20:42 | NUR ---
ROBSON ADMINISTERED ORDERED BY
--- NOTE | 2021-09-28 21:42 | NUR ---
MAXIPIME ADMINISTERED PER MD ORDERED.
--- NOTE | 2021-09-28 22:48 | NUR ---
ENDORSED TO TOM CHENG FOR CONTINUITY OF CARE. PT STABLE.
[2021-09-29] MEDS: VANCOMYCIN 750 MG in DEXTROSE 5% 250 ML IV SCH ×2 (00:55→13:00)
[2021-09-29] MEDS: MORPHINE SULFATE 2 MG/ML SYR IVP PRN ×3 (00:56→13:27)
[2021-09-29] MEDS: GAUZE TP SCH ×2 (01:06→13:27)
[2021-09-29] MEDS: HYDROmorphone 1 MG/ML AMP IVP PRN ×4 (04:28→21:29)
[2021-09-29] MEDS: ONDANSETRON 4 MG/2 ML VIAL IVP PRN (04:31)
[2021-09-29] MEDS: metroNIDAZOLE 500 MG/NS PREMIX 100 ML IV SCH ×3 (04:33→21:40)
[2021-09-29] MEDS: INSULIN LISPRO SLIDING SCALE 100 UNITS/ML VIAL SUBQ PRN ×4 (06:24→22:48)
[2021-09-29] MEDS: BLOOD GLUCOSE MONITORING 1 DEV DEV FS SCH ×4 (06:54→21:00)
--- NOTE | 2021-09-29 07:36 | NUR ---
PATIENT RECEIVED FROM HOISTING PILE DRIVING ENGINEER NURSE , PATIENT RESTING IN BED, NO S/SX OF DISTRESS AT THIS TIME , CALL LIGHT WITHIN REACH BED IN LOWEST POSITION, ALL BELONGINGS WITHIN REACH , PATIENT ASKED TO CALL BEFORE GETTING OUT OF BED.
--- NOTE | 2021-09-29 07:50 | NUR ---
PT SLEEPING, NO SIGNS OF DISTRESS, REPORT GIVEN TO JONATHAN SANTOS FOR CONTINUITY OF CARE.
[2021-09-29 08:00] VITALS: BP 173/99
[2021-09-29] MEDS: ENOXAPARIN 40 MG/0.4 ML SYR SUBQ SCH (08:11)
[2021-09-29] MEDS: FLUCONAZOLE 100 MG TAB PO SCH (08:12)
[2021-09-29] MEDS: INSULIN LANTUS 100 UNITS/ML 10 ML VIAL SUBQ SCH (08:12)
[2021-09-29] MEDS: CEFEPIME 2,000 MG in DEXTROSE 5% 100 ML IV SCH ×2 (08:17→22:51)
--- NOTE | 2021-09-29 08:32 | NUR ---
MEDICATIONS GIVEN PER MD ORDER , PATIENT EDUCATED AND VERBALIZED UNDERSTANDING. ALL SAFETY MEASURES ARE IN PLACE
--- NOTE | 2021-09-29 09:48 | NUR ---
PATIENT GIVEN BONE BROTH REFUSES BREAKFAST, ALL SAFETY MEASURES ARE IN PLACE.
--- NOTE | 2021-09-29 10:28 | NUR ---
PATENT COMPLAINS OF 10/10 PAIN , MEDICATIONS GIVEN PER MD ORDER, PT EDUCATED AND VERBALIZED UNDERSTANDING , PT BED IN LOW POSITION , CALL LIGHT WITHIN REACH , ALL BELONGINGS ARE WITHIN REACH , PT EDUCATED TO CALL BEFORE GETTING OUT OF BED, ALL SAFETY MEASURES ARE IN PLACE.
--- NOTE | 2021-09-29 11:30 | NUR ---
BG 152 , MEDICATIONS GIVEN PER MD ORDER, PT EDUCATED AND VERBALIZED UNDERSTANDING ALL SAFETY MEASURES ARE IN PLACE.
--- NOTE | 2021-09-29 13:06 | NUR ---
PATIENT REFUSED BLOOD DRAW, PT EDUCATED.
--- NOTE | 2021-09-29 13:34 | NUR ---
PT COMPLAINS OF PAIN PRN MEDICATION GIVEN PER MD ORDER, PT EDUCATED AND VERBALIZED UNDERSTANDING , GLAZIER SUPERVISOR AT BEDSIDE ALL SAFETY MEASURES ARE IN PLACE.
--- NOTE | 2021-09-29 15:25 | NUR ---
PT HAS SPECIAL FOOD REQUEST FOR DINNER , NUTRITION CALLED AND MADE AWARE. ALL SAFETY MEASURES ARE IN PLACE.
[2021-09-29 16:00] VITALS: BP 165/79
--- NOTE | 2021-09-29 16:40 | NUR ---
BG 156, PRN MEDICATION GIVEN PER MD ORDER, ALL SAFETY MEASURES ARE IN PLACE.
--- NOTE | 2021-09-29 18:25 | NUR ---
PATIENT REFUSES DINNER STATES IT IS NOT WHAT SHE REQUESTED , PT EDUCATED ON DIET PLAN AND CCHO REQUIREMENTS , REINFORCEMENT NEEDED
--- NOTE | 2021-09-29 19:30 | NUR ---
PT ENDORSED TO CHIEF DESIGN DRAFTER NURSE FOR CONTINUITY OF CARE. PT IN STABLE CONDITION
--- NOTE | 2021-09-29 19:30 | NUR ---
RECEIVED ENDORSEMENT FOR PT BY RN DAYSHIFT NURSE FOR CONTINUITY OF CARE. PT LYING IN BED AOX4 WITH R IJ INTACT, RIGHT BUTTOCK WOUND DRESSING DRY AND INTACT SHIN CATHETER INTACT AND DRAINING LIGHT YELLOW URINE. ALL PRECAUTIONS IN PLACE.
--- NOTE | 2021-09-29 21:00 | NUR ---
ROBSON HUNG AND RUNNING ORDERED. PT VERBALIZED UNDERSTANDING OF PURPOSE OF MEDICATION.
--- NOTE | 2021-09-29 21:30 | NUR ---
PT IN BED C/O OF SEVERE PAIN, 9/10 PT CRYING AND RESTLESS IN BED WELL INCREASED B/P. PT V/S FOLLOWS: T 98.2 P 85 R 18 B/P 178/107. WILL RETAKE V/S HIGH B/P MAY BE DUE TO SEVERE PAIN. PT ALSO SAID THAT SHE HAS HX OF HTN AND THAT SHE WAS TAKING NORVASC AND LISINOPRIL AT HOME. WILL FOLLOW UP.
--- NOTE | 2021-09-29 22:00 | NUR ---
CEFEPIME HUNG AND RUNNING ORDERED , PT VERBALIZED UNDERSTANDING OF MEDICATION.
--- NOTE | 2021-09-29 22:30 | NUR ---
RETAKE OF B/P IS 151/93. PT DOES HAVE HOME MEDICATION FOR B/P MEDS WILL FOLLOW UP WITH COUNSELING CASE MANAGER MD FOR SCHEDULED OR PRN MEDS FOR HTN. PT ALSO SAID SHE HAS HX OF SEIZURES AND TAKES KEPPRA AT HOME. SEIZURES PRECAUTIONS ADDED TO BEDSIDE, WILL FOLLOW UP WITH MD FOR ORDERS.
[2021-09-29] MEDS ORDERED: hydrALAZINE 20 MG/ML VIAL IVP PRN (23:50)
[2021-09-30] VITALS: BP 151/93
--- NOTE | 2021-09-30 00:30 | NUR ---
SPOKE WITH ON ALL MD SMITH REGARDING PRN B/P MEDS AND HE ORDERED PRN HYDRALAZINE, ALSO OK TO CONTINUE WITH HOME ORDER OF ZULAY.
[2021-09-30] MEDS: GAUZE TP SCH ×2 (01:00→13:47)
[2021-09-30] MEDS: ONDANSETRON 4 MG/2 ML VIAL IVP PRN (01:04)
[2021-09-30] MEDS: VANCOMYCIN 750 MG in DEXTROSE 5% 250 ML IV SCH ×2 (01:16→13:47)
--- NOTE | 2021-09-30 02:00 | NUR ---
PT C/O OF SEVERE PAIN AT THE INCISION SITE, DILAUDID NOT DUE YET, MORPHINE ORDER WAS D/CD, CALLED MULTIPLE SCLEROSIS NURSE MD TO RENEW PRN IVP MORPHINE ORDER. NEW ORDER NOTED.
--- NOTE | 2021-09-30 03:30 | NUR ---
PT IN SEVERE PAIN , WAS GIVEN IVP DILAUDID AND WOUND WAS CLEANSED AND REDRESSED. IV FLUIDS NORMAL SALINE RUNNING AT 10MLS/HR TO KVO. CATHETER CARE PROVIDED WELL. ALL ORDERED PRECAUTIONS IN PLACE.
[2021-09-30] MEDS: HYDROmorphone 1 MG/ML AMP IVP PRN ×3 (03:39→22:20)
[2021-09-30] MEDS: metroNIDAZOLE 500 MG/NS PREMIX 100 ML IV SCH ×3 (05:00→21:00)
--- NOTE | 2021-09-30 05:45 | NUR ---
ROBSON RILEY AND RUNNING ORDERED.
[2021-09-30] MEDS: INSULIN LISPRO SLIDING SCALE 100 UNITS/ML VIAL SUBQ PRN ×3 (07:08→22:05)
[2021-09-30] MEDS: BLOOD GLUCOSE MONITORING 1 DEV DEV FS SCH ×4 (07:13→21:57)
--- NOTE | 2021-09-30 07:15 | NUR ---
PT GIVEN IVP/PRN MORPHINE FOR SEVERE PAIN. ALL REQUESTS ATTENDED BY STAFF.
--- NOTE | 2021-09-30 07:15 | NUR ---
PATIENT RECEIVED FROM ENGINEERING MANAGER ELECTRONICS NURSE, PATIENT RESTING IN BED EYES CLOSED , NO S/SX OF DISTRESS AT THIS TIME. ALL SAFETY MEASURES ARE IN PLACE.
[2021-09-30 08:00] VITALS: BP 171/110
[2021-09-30] MEDS: levETIRAcetam 500 MG TAB PO SCH ×2 (09:26→21:55)
[2021-09-30] MEDS: FLUCONAZOLE 100 MG TAB PO SCH (09:26)
[2021-09-30] MEDS: INSULIN LANTUS 100 UNITS/ML 10 ML VIAL SUBQ SCH (09:29)
[2021-09-30] MEDS: ENOXAPARIN 40 MG/0.4 ML SYR SUBQ SCH (09:33)
--- NOTE | 2021-09-30 11:30 | NUR ---
PT COMPLAINS OF 10/10 PAIN MEDICATION GIVEN PER MD ORDER, PT EDUCATED AND VERBALIZED UNDERSTANDING ALL SAFETY MEASURES ARE IN PLACE.
[2021-09-30] MEDS: MORPHINE SULFATE 2 MG/ML SYR IVP PRN ×3 (11:33→22:20)
--- NOTE | 2021-09-30 11:44 | NUR ---
BG 187 MEDICATION GIVEN PER MD ORDER PT EDUCATED AND VERBALIZED UNDERSTANDING
[2021-09-30 11:55] LABS: BASOPHILS # (AUTO) 0.2 K/uL (0.00-0.22); BASOPHILS % (AUTO) 3.8 % (0.0-2.0); EOSINOPHILS # (AUTO) 0.4 K/uL (0-0.4); EOSINOPHILS % (AUTO) 6.3 % (0.0-4.0); HEMATOCRIT 23.2 % (36-48); HEMOGLOBIN 7.9 g/dL (12.0-16.0); LYMPHOCYTES # (AUTO) 2.9 K/uL (2.5-16.5); LYMPHOCYTES % (AUTO) 47.5 % (20.5-51.1); MEAN CORPUSCULAR HEMOGLOBIN 29 pg (27-31); MEAN CORPUSCULAR HGB CONC 34 g/dL (33-37); MEAN CORPUSCULAR VOLUME 84.6 fL (80-94); MONOCYTES # (AUTO) 0.5 K/uL (0.8-1.0); MONOCYTES % (AUTO) 7.9 % (1.7-9.3); NEUTROPHILS # (AUTO) 2.1 K/uL (1.8-7.7); NEUTROPHILS % (AUTO) 34.5 % (42.2-75.2); PLATELET COUNT (AUTO) 717 K/uL (140-450); RED BLOOD CELL COUNT(AUTO) 2.74 MIL/uL (4.20-5.40); RED CELL DISTRIBUTION WIDTH 15.6 % (11.6-13.7); WHITE BLOOD COUNT (AUTO) 6.1 K/uL (4.8-10.8)
[2021-09-30 12:03] LABS: ANION GAP 8.3 (8-16); CARBON DIOXIDE 28.5 mmol/L (21-32); CREATININE 0.7 mg/dL (0.6-1.3); POTASSIUM 3.8 mmol/L (3.5-5.1)
--- NOTE | 2021-09-30 13:25 | NUR ---
PT EDUCATED ON IMPORTANCE OF DRESSING CHANGED , PT REFUSING AT THIS TIME , PAIN MEDICATION GIVEN PT STILL REFUSING
[2021-09-30 16:00] VITALS: BP 191/126
[2021-09-30] MEDS ORDERED: HYDROmorphone 1 MG/ML AMP IVP PRN (16:15)
--- NOTE | 2021-09-30 16:25 | NUR ---
PATIENT REFUSING WOUND CARE, PT EDUCATED AND VERBALIZED UNDERSTANDING , P STATES SHE WILL NOT HAVE IT UNTIL DILAUDID IS GIVEN , PT EDUCATED MD AWARE ORDERS RECEIVED
--- NOTE | 2021-09-30 19:26 | NUR ---
PATIENT ENDORSED TO SHRIMP CLEANER NURSE FOR CONTINUITY OF CARE, PT INSTABLE CONDITION
--- NOTE | 2021-09-30 19:27 | NUR ---
RECD. RESTING IN BED, AWAKE, A/OX4. RESPIRATION EVEN AND UNLABORED. IV OF NS INFUSING AT TKO, RIGHT IJ G18. ABLE TO AMBULATE BY HERSELF. INCISION IN THE RIGHT BUTTOCKS, COVERED WITH DRESSING DRY AND INTACT. MEDICATIONS AND CRE FOR THE SHIFT DISCUSSED WITH PATIENT. VERBALIZED UNDERSTANDING. PAIN IN THE SITE, 10/08. WILL MEDICATE PER MD ORDER.
--- NOTE | 2021-09-30 21:55 | NUR ---
SCHEDULED MEDICATIONS FOR THE NIGHT ADMINISTERED. ATE 100% OF SNACK.
[2021-09-30 22:00] VITALS: BP 152/101
--- NOTE | 2021-09-30 22:17 | NUR ---
COMPLAINED OF NAUSEA BUT WHEN ABOUT TO BE GIVEN REFUSED TO TAKE THE ZOFRAN, INSTEAD REQUESTED FOR ICE CHIPS.
--- NOTE | 2021-10-01 | NUR ---
AWAKE IN BED, WATCHING VIDEO IN HER CELLPHONE.
[2021-10-01] MEDS: VANCOMYCIN 750 MG in DEXTROSE 5% 250 ML IV SCH ×2 (00:32→13:00)
[2021-10-01] MEDS: GAUZE TP SCH ×2 (01:56→13:16)
--- NOTE | 2021-10-01 01:56 | NUR ---
WOUND DRESSING CHANGED. TEACHINGS GIVEN ON WOUND CARE AND THE IMPORTANCE OF HEALTHY DIET IN THE HEALING PROCESS. VERBALIZED UNDERSTANDING.
[2021-10-01] MEDS: HYDROmorphone 1 MG/ML AMP IVP PRN ×4 (03:13→22:30)
--- NOTE | 2021-10-01 04:00 | NUR ---
RESTING COMFORTABLY IN BED, STILL AWAKE EVEN AFTER TAKING IV PAIN MEDICATIONS.
--- NOTE | 2021-10-01 06:00 | NUR ---
RESTING IN BED COMFORTABLY, TOLERATED ALL ANTIBIOTICS. COMPLAINT OF PAIN ATTENDED PROMPTLY, MEDICATED PEER MD ORDER.
[2021-10-01 06:57] LABS: BASOPHILS # (AUTO) 0.2 K/uL (0.00-0.22); BASOPHILS % (AUTO) 2.4 % (0.0-2.0); EOSINOPHILS # (AUTO) 0.3 K/uL (0-0.4); EOSINOPHILS % (AUTO) 4.8 % (0.0-4.0); HEMATOCRIT 22.8 % (36-48); HEMOGLOBIN 7.7 g/dL (12.0-16.0); LYMPHOCYTES # (AUTO) 2.8 K/uL (2.5-16.5); LYMPHOCYTES % (AUTO) 43.9 % (20.5-51.1); MEAN CORPUSCULAR HEMOGLOBIN 29 pg (27-31); MEAN CORPUSCULAR HGB CONC 34 g/dL (33-37); MEAN CORPUSCULAR VOLUME 84.7 fL (80-94); MONOCYTES # (AUTO) 0.5 K/uL (0.8-1.0); MONOCYTES % (AUTO) 8.4 % (1.7-9.3); NEUTROPHILS # (AUTO) 2.6 K/uL (1.8-7.7); NEUTROPHILS % (AUTO) 40.5 % (42.2-75.2); PLATELET COUNT (AUTO) 685 K/uL (140-450); RED BLOOD CELL COUNT(AUTO) 2.69 MIL/uL (4.20-5.40); RED CELL DISTRIBUTION WIDTH 15.5 % (11.6-13.7); WHITE BLOOD COUNT (AUTO) 6.4 K/uL (4.8-10.8)
[2021-10-01] MEDS: metroNIDAZOLE 500 MG/NS PREMIX 100 ML IV SCH ×3 (07:01→22:20)
[2021-10-01 07:04] LABS: ANION GAP 7.9 (8-16); CARBON DIOXIDE 26.3 mmol/L (21-32); CREATININE 0.8 mg/dL (0.6-1.3); POTASSIUM 4.2 mmol/L (3.5-5.1)
[2021-10-01] MEDS: MORPHINE SULFATE 2 MG/ML SYR IVP PRN ×2 (07:07→19:11)
[2021-10-01] MEDS: BLOOD GLUCOSE MONITORING 1 DEV DEV FS SCH ×4 (07:34→21:00)
[2021-10-01] MEDS: INSULIN LISPRO SLIDING SCALE 100 UNITS/ML VIAL SUBQ PRN ×4 (07:37→22:37)
[2021-10-01 08:00] VITALS: BP 160/96
--- NOTE | 2021-10-01 08:26 | NUR ---
RECEIVED ENDORSEMENT FOR PT BY MUFFLER MECHANICDATABASE CONSULTANT NURSE FOR CONTINUITY OF CARE. PT LYING IN BED AOX4 WITH R IJ INTACT, RIGHT BUTTOCK WOUND DRESSING DRY AND INTACT SHIN CATHETER INTACT AND DRAINING LIGHT YELLOW URINE. PATIENT IN ROOM AIR, NO SOD NOTED NO COMPLAINS ALL PRECAUTIONS IN PLACE.CALLS LIGHT WITHIN REACH
[2021-10-01] MEDS: ENOXAPARIN 40 MG/0.4 ML SYR SUBQ SCH (09:00)
[2021-10-01] MEDS: INSULIN LANTUS 100 UNITS/ML 10 ML VIAL SUBQ SCH (09:00)
[2021-10-01] MEDS: FLUCONAZOLE 100 MG TAB PO SCH (10:31)
[2021-10-01] MEDS: levETIRAcetam 500 MG TAB PO SCH ×2 (10:31→22:20)
[2021-10-01] MEDS: levoFLOXacin 500 MG TAB PO SCH (10:32)
--- NOTE | 2021-10-01 10:35 | NUR ---
PATIENT IN BED COMPLAINS ABOUT PAIN GOT MEDICATED MD ORDER, WOUND DRESSING CHANGED BY WOUND CARE NURSE NO SOD NOTED, CALLS LIGHT WITHIN REACH, ALL SAFETY MEASURES ON PLACE
--- NOTE | 2021-10-01 11:37 | NUR ---
WOUND CARE EVALUATION NOTE: S/P I&D RIGHT BUTTOCK SURGICAL WOUND 8X4X6.5CM 100% GRANULATION TISSUE, SMALL AMOUNT SEROUS DRAINAGE, NO ODOR, WOUND EDGE FLAT, KIMBERLEE-WOUND SKIN INTACT. POC DISCUSSED WITH PT. AND PRIMARY RN ,WILL CONTINUE TO FOLLOW SURGEON ORDER TO PACK WOUND.
--- NOTE | 2021-10-01 12:25 | NUR ---
PATIENT IN BED NO COMPLAINS NO SOD NOTED, CALLS LIGHT WITHIN REACH, ALL SAFETY MEASURES ON PLACE
--- NOTE | 2021-10-01 14:35 | NUR ---
PATIENT IN BED NO COMPLAINS NO SOD NOTED, GOT CLEANED AND CHANGED, WOUND CARE DONE AFTER GETTIG DIRTY FROM BOWEL MOVEMENT CALLS LIGHT WITHIN REACH, ALL SAFETY MEASURES ON PLACE
[2021-10-01 16:00] VITALS: BP 163/97
--- NOTE | 2021-10-01 16:10 | NUR ---
PATIENT IN BED COMPLAINS ABOUT PAIN GOT MEDICATED MD ORDER NO SOD NOTED, CALLS LIGHT WITHIN REACH, ALL SAFETY MEASURES ON PLACE
--- NOTE | 2021-10-01 18:20 | NUR ---
PATIENTIN BED NO SOD NOTED, CALLS LIGHT WITHIN REACH, ALL SAFETY MEASURES ON PLACE
--- NOTE | 2021-10-01 19:30 | NUR ---
RECEIVED REPORT FROM AM NURSE. PATIENT IS AWAKE RESTING IN BED. NO ACUTE DISTRESS NOTED. SAFETY MEASURES IN PLACE. CALL LIGHT WITHIN REACH. NO COMPLAINTS OF PAIN AT THIS TIME. WILL CONTINUE TO MONITOR.
[2021-10-02] VITALS: BP 159/91
[2021-10-02] MEDS: GAUZE TP SCH ×2 (01:00→13:00)
[2021-10-02] MEDS: VANCOMYCIN 750 MG in DEXTROSE 5% 250 ML IV SCH ×2 (01:55→13:00)
[2021-10-02] MEDS: HYDROmorphone 1 MG/ML AMP IVP PRN ×3 (02:52→16:47)
[2021-10-02] MEDS: MORPHINE SULFATE 2 MG/ML SYR IVP PRN (06:04)
[2021-10-02] MEDS: BLOOD GLUCOSE MONITORING 1 DEV DEV FS SCH ×3 (07:09→16:30)
[2021-10-02] MEDS: INSULIN LISPRO SLIDING SCALE 100 UNITS/ML VIAL SUBQ PRN ×2 (07:09→11:58)
[2021-10-02 08:00] VITALS: BP 129/83
[2021-10-02] MEDS: FLUCONAZOLE 100 MG TAB PO SCH (09:00)
[2021-10-02] MEDS: levETIRAcetam 500 MG TAB PO SCH (09:00)
[2021-10-02] MEDS: levoFLOXacin 500 MG TAB PO SCH (09:00)
[2021-10-02] MEDS: INSULIN LANTUS 100 UNITS/ML 10 ML VIAL SUBQ SCH (09:00)
[2021-10-02] MEDS: ENOXAPARIN 40 MG/0.4 ML SYR SUBQ SCH (09:00)
--- NOTE | 2021-10-02 12:10 | NUR ---
10/02/21 RD F/U COMPLETED PLEASE REFER TO NUTRITION ASSESSMENT UNDER CARE ACTIVITY FOR ESTIMATED NUTRITIONAL NEEDS. 1. CONTINUE CCHO DIET TOLERATED 2. CONTINUE DAYANNA BID 3. PROVIDE GLUCERNA 1X DAY PER RD PROTOCOL 4. RD TO FOLLOW-UP 3-5 DAYS,MODERATE RISK REVIEWED BY BRITTA VÁSQUEZ RD Addendum: 10/02/21 at [address] 10/02/21 RD F/U COMPLETED PLEASE REFER TO NUTRITION ASSESSMENT UNDER CARE ACTIVITY FOR ESTIMATED NUTRITIONAL NEEDS. 1. CONTINUE CCHO DIET TOLERATED 2. CONTINUE DAYANNA BID 3. PROVIDE GLUCERNA BID PER RD PROTOCOL 4. RD TO FOLLOW-UP 3-5 DAYS,MODERATE RISK REVIEWED BY BRITTA VÁSQUEZ RD
--- NOTE | 2021-10-02 14:16 | NUR ---
DC PLANNING VARUN CALL PATIENT'S MOTHER MARIBELL DUONG AT [phone] TO DISCUSS PATIENT DISCHARGE TODAY, WELL DC PLAN WITH HOME HEALTH SERVICES. PER PATIENT'S MOTHER SHE WILL BE GETTING A HOTEL ROOM FOR PATIENT AND HER TO STAY WHILE PATIENT IS RECEIVING H.H TREATMENT. DUE TO NOT HAVING HER OWN PLACE AND NOT BEEN ABLE TO HAVE H.H. FOR PATIENT COME IN THE PLACE THEY ARE STAYING AT THIS PRESENT TIME. PER RHODA SHE WILL BE CALLING VARUN/MARTHA WITH INFORMATION ABOUT THE HOTEL (ADDRESS AND NAME) WITH IN AN HOUR TO MAKE SURE THAT PICTURE FRAMER CAN PROVIDE THE INFORMATION AND REFERRAL TO THE HOME HEALTH AGENCY TO FOLLOW UP WITH PATIENT'S CARE AFTER HER DISCHARGE FROM [facility]. Addendum: 10/02/21 at 1908 by Lolis CHOE DC PLANNING VARUN CALL PATIENT'S MOTHER MARIBELL DUONG AT AGAIN TO CONFIRM DC PLAN. PER PATIENT'S MOTHER SHE WILL BE PICKING UP PATIENT FOR DISCHARGE TODAY AND WILL BE TAKING PATIENT TO HER UNCLE'S HOME. THEREFORE,THEY REFUSED H.H. SERVICES AND STATED THAT " SHE HAS ALREADY TALK TO HER PRIMARY MD REQUESTING FOR THEM TO CHANGE HER WOUND DRESSINGS, WHEN SHE NEEDS IT" THEREFORE PATIENT DECLINED H.H. VARUN THANKED MOTHER FOR INFORMATION AND ENDED THE CALL.
[2021-10-02 16:00] VITALS: BP 132/74
[2021-10-02] MEDS ORDERED: LEVO-315 PO (16:04)
[2021-10-02 17:45] VITALS: BP 132/79
--- NOTE | 2021-10-02 19:30 | NUR ---
ENDORSED TO TIME CYCLE OPERATOR NURSE FOR DISCHARGE HOSPITAL INSURANCE CLERK AT 1999. PT IS STABLE. MOTHER WILL HOSPITAL INSURANCE CLERK PT.
== END 2021-10-02 20:15 | disposition home or self-care (01) | DRG 710 ==
LOC: MED 03:14 → MIC 08:25 → MMU 09-24 06:15
PROVIDERS: ADMIT Internal Medicine; ATTEND Internal Medicine
PROC: 0KBM0ZZ Excision of Perineum Muscle, Open Approach (ICD-10-PCS; principal; 2021-09-22 15:00)
DX: A41.9 Sepsis, unspecified organism (principal); N17.0 Acute kidney failure with tubular necrosis; E10.10 Type 1 diabetes mellitus with ketoacidosis without coma; L02.215 Cutaneous abscess of perineum; K61.1 Rectal abscess; B37.49 Other urogenital candidiasis; D64.9 Anemia, unspecified; D75.838 Other thrombocytosis; I10 Essential (primary) hypertension; B95.62 Methicillin resistant Staphylococcus aureus infection as the cause of diseases classified elsewhere; B96.20 Unspecified Escherichia coli [E. coli] as the cause of diseases classified elsewhere; K21.9 Gastro-esophageal reflux disease without esophagitis; Z20.822 Contact with and (suspected) exposure to COVID-19; E87.5 Hyperkalemia; F12.90 Cannabis use, unspecified, uncomplicated; T38.3X6A Underdosing of insulin and oral hypoglycemic [antidiabetic] drugs, initial encounter; Z88.0 Allergy status to penicillin; Z91.018 Allergy to other foods; Z79.899 Other long term (current) drug therapy; Y92.89 Other specified places as the place of occurrence of the external cause
CPT/HCPCS: 36415; 71045; 80048; 80053; 80202; 81001; 81025; 82009; 82948; 83690; 83735; 84100; 84484; 85025; 87040; 87070; 87075; 87081; 87086; 87186; 87205; 87804; 93005; 96360; 96372; 99285; J0360; J0692; J1170; J1200; J1630; J1650; J1815; J2001; J2250; J2270; J2405; J3370; J3475; J3490; J7030; J7060; Q0092

== ENCOUNTER 2022-04-09 20:10 | Inpatient (IN) | payer OTHER ==
[~2022-04-09] VITALS: Ht 160 cm; Wt 54.4 kg
[2022-04-09 20:10] VITALS: BP 154/104
[~2022-04-09 20:10] MED LIST changes: +AMLO10TA1 PO; +LISI-487 PO; -LISI2.5T12 PO; -METR-435 PO; -NITR100C15 PO
--- NOTE | 2022-04-09 20:28 | NUR ---
ATTEMPTED IV START 2 TIMES- UNSUCCESSFUL. UNABLE TO START PATIENT SWOLLEN AND HAS HX OF BEING HARDSTICK, PLACING MIDLINES, PICC LINES, AND CENTRAL LINES. ER MADE AWARE.
--- NOTE | 2022-04-09 20:30 | NUR ---
RAÚL WRAY AT BEDSIDE FOR ULTRASOUND GUIDED IV
[2022-04-09] MEDS ORDERED: NACL 0.9% 2,000 ML IV ONE (20:35)
[2022-04-09 20:50] LABS: BASOPHILS # (AUTO) 0.3 K/uL (0.00-0.22); BASOPHILS % (AUTO) 3.4 % (0.0-2.0); EOSINOPHILS % (AUTO) 0.2 % (0.0-4.0); HEMATOCRIT 34.2 % (36-48); HEMOGLOBIN 9.9 g/dL (12.0-16.0); LYMPHOCYTES # (AUTO) 1.9 K/uL (2.5-16.5); LYMPHOCYTES % (AUTO) 18.5 % (20.5-51.1); MEAN CORPUSCULAR HEMOGLOBIN 28 pg (27-31); MEAN CORPUSCULAR HGB CONC 29 g/dL (33-37); MEAN CORPUSCULAR VOLUME 97.5 fL (80-94); MONOCYTES # (AUTO) 0.8 K/uL (0.8-1.0); MONOCYTES % (AUTO) 8.3 % (1.7-9.3); NEUTROPHILS # (AUTO) 7.1 K/uL (1.8-7.7); NEUTROPHILS % (AUTO) 69.6 % (42.2-75.2); PLATELET COUNT (AUTO) 934 K/uL (140-450); RED BLOOD CELL COUNT(AUTO) 3.51 MIL/uL (4.20-5.40); RED CELL DISTRIBUTION WIDTH 17.1 % (11.6-13.7); WHITE BLOOD COUNT (AUTO) 10.1 K/uL (4.8-10.8)
--- NOTE | 2022-04-09 20:58 | NUR ---
SWABBED PATIENT FOR YULI AND SENT TO LAB RECEIVED BY PRINCIPAL RESEARCH ECONOMIST
[2022-04-09 21:05] LABS: ALBUMIN 2.3 g/dL (3.4-5.0); CREATININE 1.7 mg/dL (0.6-1.3); MAGNESIUM 2.4 mg/dL (1.8-2.4); POTASSIUM 5.9 mmol/L (3.5-5.1); TOTAL BILIRUBIN 0.3 mg/dL (0.0-1.0)
[2022-04-09] MEDS ORDERED: SODIUM BICARBONATE 8.4% 50 MEQ in DEXTROSE 5% 1,000 ML IV STA (21:11)
[2022-04-09 21:26] LABS: ANION GAP 37.7 (8-16); CARBON DIOXIDE 4.2 mmol/L (21-32)
[2022-04-09] MEDS ORDERED: SODIUM BICARBONATE 8.4% 50 MEQ in DEXTROSE 5% 1,000 ML IV SCH (21:40)
[2022-04-09] MEDS ORDERED: SODIUM BICARBONATE 8.4% PFS 50 MEQ/50 ML SYR IVP ONE (21:50)
[2022-04-09] MEDS ORDERED: ACETAMINOPHEN 325 MG TAB PO PRN (22:15)
[2022-04-09] MEDS ORDERED: DEXTROSE 50% 50 ML SYR IVP PRN (22:15)
[2022-04-09] MEDS ORDERED: INSULIN REGULAR, HUMAN 100 UNIT in NACL 0.9% 100 ML IV SCH ×4 (22:15)
[2022-04-09] MEDS ORDERED: HYDROcodone/APAP 5/325 MG 1 TAB TAB PO PRN (22:15)
[2022-04-09] MEDS ORDERED: BLOOD GLUCOSE MONITORING 1 DEV DEV FS SCH (22:15)
--- NOTE | 2022-04-09 22:17 | NUR ---
ER MD CASTANON PULLED TO PATIENT ROOM PATIENT CONDITION SEEMED TO HAVE WORSENED. PATIENT APPEARS TO BE MORE ALTERED AND HEAVILY BREATHING ALONG WITH RESTLESSNESS. ER MD AT BEDSIDE EXAMINING PATIENT.
--- NOTE | 2022-04-09 22:53 | NUR ---
IV FROM THE RIGHT UPPER ARM PULLED OUT. CATHETER IN TACT AND BLEEDING CONTROLLED. WILL INSERT A NEW IV ULTRASOUNDED GUIDED IV BY THE ER MD.
--- NOTE | 2022-04-09 22:54 | NUR ---
MOTHER SARAH MARIBELL [phone] CALLED REQUESTING UPDATE
--- NOTE | 2022-04-09 23:04 | NUR ---
JAYY GOSS INSERTING CENTRAL LINE AT BEDSIDE.
[2022-04-09 23:09] LABS: FREE T4 (FREE THYROXINE) 0.69 ng/dL (0.76-1.46); THYROID STIMULATING HORMONE 2.41 uIU/mL (0.34-3.74)
[2022-04-09] MEDS: BLOOD GLUCOSE MONITORING 1 DEV DEV FS SCH (23:15)
--- NOTE | 2022-04-09 23:34 | NUR ---
2 UNSUCCESSFUL ATTEMPTS AT STARTING A CENTRAL LINE BY JAYY GOSS. ER MD PLACED ON THE RIGHT EJ 18G- PATENT, PT DENIES PAIN.
--- NOTE | 2022-04-09 23:59 | NUR ---
Patient will be admitted to care of Henok GOSS. Admited to ICU. Will go to room ICU bed 3. Belongings list completed. Report to Arlyn SANTOS.
[2022-04-10] VITALS (21 sets, daily range): BP systolic 100–189; BP diastolic 54–128
[2022-04-10] MEDS: BLOOD GLUCOSE MONITORING 1 DEV DEV FS SCH ×23 (00:15→23:14)
--- NOTE | 2022-04-10 00:29 | NUR ---
patient tx to ICU via meetarlisa
[2022-04-10] MEDS ORDERED: SODIUM BICARBONATE 8.4% PFS 50 MEQ/50 ML SYR IVP ONE ×2 (00:30→02:40)
--- NOTE | 2022-04-10 00:35 | NUR ---
RECEIVED PT. FROM ER AOX3, WITH MOUTH OPEN AND WITH DEEP BREATHING PATTERN. ARMS FOLDED AND SHE'S NOT WILLING TO STRAIGHTEN. BP HIGH AND TEMPERATURE LOW, TAKEN RECTALLY AND TEMP. 88.7. PROVIDED A ZENY HUGGER AND WILL CONT. TO MONITOR TEMP. ON INSULIN DRIP TO RIGHT EJ. LAB CAME FOR PHOS, MAG AND BMP. MRSA SOURCE NARES SENT TO THE LAB. K LEVEL 5.9 AND ER MD AWARE. PERSONAL CARE PROVIDED, REPOSITIONED, PLACED BED IN LOW POSITION. WILL CONT. TO MONITOR.
--- NOTE | 2022-04-10 01:12 | NUR ---
04/09/22 ATTEMPTED TO START INSULIN DRIP AT 22:40 BUT UNSUCCESSFUL- RESISTANCE MET AT THE SITE EVEN WITH FLUSHING AND REPOSITIONING. 04/09/22 AT 23:35 STARTED INSULIN DRIP AT 3 UNTIS PER ER MD ORDERS THROUGHT THE RIGHT EJ. IV LINE PATENT TO PUT MEDICATION THROUGH.
--- NOTE | 2022-04-10 01:17 | NUR ---
Called mother maryann claros for update on patient condition. per mother has been intubated twice- 2020 due to fall and unknown time for the other intubation but mother knows it has been a very long time.
[2022-04-10 01:31] LABS: MAGNESIUM 2.1 mg/dL (1.8-2.4); PHOSPHORUS 6.6 mg/dL (2.5-4.9)
--- NOTE | 2022-04-10 02:15 | NUR ---
PT. PLACED ON A BIPAP 32%, I12, E5, RATE 18
--- NOTE | 2022-04-10 02:18 | NUR ---
CALLED DUE TO PT. BP HIGH SBP GREATER THAN 170 AND DBP GREATER THAN 120. BLOOD SUGAR HIGH TAKEN 2X AT 0125 WITH RESULT OF HIGH AND BS TAKEN AT 0208, STILL HIGH. LEFT A MESSAGE AND WILL WAIT FOR HIS CALL.
--- NOTE | 2022-04-10 03:12 | NUR ---
CALLED DR. ROACH, REPORTED PT. IN ICU, BP HIGH SBP GREATER THAN 170'S AND DBP GREATER THAN 120'S, BLOOD SUGAR IS HIGH, NO READING ON THE GLUCOSE MONITOR, TEMP IS LOW 88.7 AND K LEVEL 5.9 AND PT. COMPLAIN OF GENERALIZED PAIN. I MENTIONED THAT I PLACED A ZENY HUGGER. DR. ROACH ORDERED HYDRALAZINE IVP, OK FOR THE ZENY MARIO ALBERTOGGER, MS IVP, TO DO THE CHEMISTRY FOR BLOOD GLUCOSE, NS TKO. RT SPOKE ALSO TO DR. ROACH AND REPORT PT. BREATHING AND O2 LEVEL. PT. IS ON BIPAP.
--- NOTE | 2022-04-10 03:22 | NUR ---
SPOKE W/ DR RODRIGUEZ AND INFORMED PT WAS PLACED ON NIV 07/03 f[address] RITU RAPP WAS INFORMED OF INCR WOB DR ALSO REQUESTING ABG Q8 DUE PT CONDITION
[2022-04-10 03:31] LABS: ANION GAP 37.2 (8-16); CREATININE 1.5 mg/dL (0.6-1.3); POTASSIUM 5.4 mmol/L (3.5-5.1)
--- NOTE | 2022-04-10 03:46 | NUR ---
LAB CALLED AND REPORTED RESULT OF GLUCOSE [address] ROACH AWARE OF PT. HIGH GLUCOSE AND CO2.
[2022-04-10] MEDS ORDERED: hydrALAZINE 20 MG/ML VIAL ONE (04:00)
--- NOTE | 2022-04-10 04:01 | NUR ---
HYDRALAZINE 10MG IVP WILL BE GIVEN PER MD ORDERED, BP 166/92.
[2022-04-10] MEDS ORDERED: hydrALAZINE 20 MG/ML VIAL IVP PRN (04:05)
[2022-04-10] MEDS: NACL 0.9% 1,000 ML IV SCH (04:05)
--- NOTE | 2022-04-10 04:07 | NUR ---
REPORTED ABG RESULTS TO TALLOW PUMPER
--- NOTE | 2022-04-10 04:14 | NUR ---
CALLED DR. RODRIGUEZ, REPORTED BLOOD GLUCOSE OF 825, CO2 2.7, ABG RESULT OF PH 7.08, PCO2 14.4, P02 140.1, HCO3 4.3 AND I MENTIONED THAT THERE WAS AN ORDER OF SODIUM BICARB 1 AMP FROM ER AND I GAVE IT AT 0250 AND HE SAID PETER. HE ORDERED TO CONTINUE THE INSULIN DRIP.
[2022-04-10] MEDS: ONDANSETRON 4 MG/2 ML VIAL IVP PRN (05:32)
[2022-04-10] MEDS: MORPHINE SULFATE 4 MG/ML SYR IVP PRN ×3 (05:33→20:38)
--- NOTE | 2022-04-10 06:58 | NUR ---
PT. BLOOD SUGAR RESULT AT 0125, HIGH, BS AT 0208, HIGH, BS AT 0312, HIGH, BS REPORTED FROM LAB AT 0345 WAS 825, BS AT 0543, 595 AND BS AT 0645, 597. AWARE WITH PT. HIGH LEVEL OF BLOOD SUGAR. DR. RODRIGUEZ STATED JUST KEEP THE INSULIN DRIP.WILL ENDORSE TO THE NEXT SHIFT.
--- NOTE | 2022-04-10 07:35 | NUR ---
REPORT GIVEN TO DAY SHIFT RN FOR CONTINUITY OF CARE.
--- NOTE | 2022-04-10 07:36 | NUR ---
SBAR REPORT RECEIVED FROM DANIELA SANTOS, ALL CARES ASSUMED. PT RESTING IN BED WITH EYES CLOSED. BIPAP IN PLACE. BED LOCKED AND IN LOW POSITION, CALL LIGHT WITHIN REACH.
--- NOTE | 2022-04-10 08:27 | NUR ---
PATIENT HAS BEEN SCREENED AND CATEGORIZED HIGH NUTRITION RISK. PATIENT WILL BE SEEN WITHIN 1-2 DAYS OF ADMISSION. / DOREEN IGLESIAS RD
[2022-04-10 08:42] LABS: BASOPHILS # (AUTO) 0.1 K/uL (0.00-0.22); BASOPHILS % (AUTO) 0.7 % (0.0-2.0); HEMATOCRIT 25.4 % (36-48); LYMPHOCYTES # (AUTO) 3.6 K/uL (2.5-16.5); LYMPHOCYTES % (AUTO) 28.9 % (20.5-51.1); MEAN CORPUSCULAR HEMOGLOBIN 27 pg (27-31); MEAN CORPUSCULAR HGB CONC 31 g/dL (33-37); MONOCYTES # (AUTO) 1.6 K/uL (0.8-1.0); MONOCYTES % (AUTO) 13.3 % (1.7-9.3); NEUTROPHILS % (AUTO) 57.1 % (42.2-75.2); PLATELET COUNT (AUTO) 764 K/uL (140-450); RED BLOOD CELL COUNT(AUTO) 2.92 MIL/uL (4.20-5.40); RED CELL DISTRIBUTION WIDTH 16.1 % (11.6-13.7); WHITE BLOOD COUNT (AUTO) 12.3 K/uL (4.8-10.8)
[2022-04-10 08:55] LABS: ANION GAP 26.7 (8-16); CARBON DIOXIDE 10.8 mmol/L (21-32); CREATININE 1.4 mg/dL (0.6-1.3); POTASSIUM 4.5 mmol/L (3.5-5.1)
[2022-04-10 08:56] LABS: PHOSPHORUS 5.1 mg/dL (2.5-4.9)
--- NOTE | 2022-04-10 10:10 | NUR ---
BEDSIDE AND STATES TO TAKE PT OFF OF BIPAP. NURSE AWARE. WILL CONTINUE TO MONITOR.
--- NOTE | 2022-04-10 10:15 | NUR ---
DR.KHORRAMI NOEL AT BEDSIDE, INSTRUCTED RT TO TAKE PT OFF BIPAP, PT NOW ON ROOM AIR, OXYGEN SATURATION 99%. WILL CONTINUE TO MONITOR.
--- NOTE | 2022-04-10 11:30 | NUR ---
DC PLANNIN YRS OLD FEMALE PATIENT WAS ADMITTED FROM HOME WITH A DX OF DKA. PATIENT HAS A HX OF DM TYPE 1 INSULIN DEPENDENT AND NONADHERENCE TO MEDICAL MANAGEMENT WITH NUMEROUS ADMISSION TO THE HOSPITAL DUE TO DKA WHO WAS ACTUALLY TREATED AND DISCHARGED JUST A FEW DAYS AGO. BLOOD GLUCOSE LEVEL 800 WITH ANION GAP 26 ON ADMISSION. PT WAS ADMITTED IN ICU FOR INSULIN DRIP. CXR LOW LUNG VOLUME. RAPID COVID TEST NEGATIVE. CONSULTED WITH CRITICAL CARE DR PRIDE ORDERED SS CONSULT FOR HER ASSESSMENT OF HER HOME SITUATION AND POOR MEDICAL COMPLIANCE. DC PLAN TO GO HOME WHEN STABLE. CM TO FOLLOW
[2022-04-10 14:23] LABS: ANION GAP 21.8 (8-16); CARBON DIOXIDE 14.6 mmol/L (21-32); CREATININE 1.5 mg/dL (0.6-1.3); POTASSIUM 4.4 mmol/L (3.5-5.1)
[2022-04-10 14:27] LABS: MAGNESIUM 1.9 mg/dL (1.8-2.4); PHOSPHORUS 4.3 mg/dL (2.5-4.9)
--- NOTE | 2022-04-10 16:30 | NUR ---
DISCHARGE PLANNING SW ATTEMPTED TO MEET WITH PATIENT TO DISCUSS AND UPDATED HER COLLATERAL INFORMATION PATIENT WAS SLEPPING AND UNABLE TO WAKE UP. SW WILL ATTEMPT TO MEET IN ANOTHER TIME. SW ATTEMPTED TO CALL PATIENT'S MOTHER RHODA REYNA AT . PATIENT'S MOTHER DID NOT RESPOND AND NO VOICE MSG WAS ABLE TO BE LEFT DUE TO FULL VOICE MAIL BOX. SW WILL ATTEMPT AGAIN AND WILL FOLLOW UP NEEDED.
[2022-04-10] MEDS ORDERED: INSULIN REGULAR, HUMAN 100 UNIT in NACL 0.9% 100 ML IV SCH ×2 (17:05)
[2022-04-10] MEDS ORDERED: traZODone 50 MG TAB PO SCH (18:20)
[2022-04-10 18:23] LABS: ANION GAP 16.2 (8-16); CARBON DIOXIDE 17.7 mmol/L (21-32); CREATININE 1.5 mg/dL (0.6-1.3); POTASSIUM 3.9 mmol/L (3.5-5.1)
[2022-04-10 18:53] LABS: MAGNESIUM 1.9 mg/dL (1.8-2.4); PHOSPHORUS 3.9 mg/dL (2.5-4.9)
--- NOTE | 2022-04-10 19:28 | NUR ---
SBAR REPORT GIVEN TO MOUNA RN, ALL CARES ENDORSED.
--- NOTE | 2022-04-10 19:30 | NUR ---
REPORT RECEIVED FROM [facility] RN FOR CONTINUITY OF CARE. PATIENT CURRENTLY RESTING CALMLY IN BED, A/O X4 ABLE TO VERBALIZE NEEDS AND ANSWERS QUESTIONS APPROPRIATELY. PATIENT DENIES PAIN AT THIS TIME. VS WNL, PATIENT ON ROOM AIR WITH 02 SATURATIONS 100%. RIGHT IJ PRESENT AND INFUSING INSULIN 0.1 UNITS/KG/ML AND NS 5ML/HR. PATIENT CURRENTLY NPO EXCEPT FOR MEDS/ ICE CHIPS AND BROTH. PATIENT IN NO DISTRESS AT THIS TIME, WILL CONTINUE TO MONITOR.
--- NOTE | 2022-04-10 20:30 | NUR ---
LAB AT BEDSIDE
--- NOTE | 2022-04-10 20:38 | NUR ---
PATIENT COMPLAINING OF 10/10 PAIN THROUGHOUT BODY. PRN MORPHINE PROVIDED.
[2022-04-10 20:51] LABS: ANION GAP 14.1 (8-16); CARBON DIOXIDE 20.5 mmol/L (21-32); CREATININE 1.5 mg/dL (0.6-1.3); POTASSIUM 3.6 mmol/L (3.5-5.1)
[2022-04-10] MEDS: traZODone 50 MG TAB PO SCH (21:00)
[2022-04-11] VITALS (14 sets, daily range): BP systolic 95–176; BP diastolic 57–119
--- NOTE | 2022-04-11 00:15 | NUR ---
PATIENT BLOOD GLUCOSE 61. INSULIN DRIP TURNED OFF AND HYPOGLYCEMIC PROTOCOL INITIATED. WILL CONTINUE TO MONITOR
[2022-04-11] MEDS: BLOOD GLUCOSE MONITORING 1 DEV DEV FS SCH ×13 (00:26→21:27)
[2022-04-11 00:36] LABS: ANION GAP 11.5 (8-16); CARBON DIOXIDE 19.7 mmol/L (21-32); CREATININE 1.4 mg/dL (0.6-1.3); POTASSIUM 3.2 mmol/L (3.5-5.1)
[2022-04-11] MEDS: MORPHINE SULFATE 4 MG/ML SYR IVP PRN ×6 (00:40→21:32)
--- NOTE | 2022-04-11 03:00 | NUR ---
PATIENT EXPERIENCING HYPOGLYCEMIA. INSULIN DRIP REMAINS OFF, HYPOGLYCEMIA PROTOCOL INITIATED BUT BLOOD GLUCOSE REMAINS LOW DESPITE INTERVENTION. PATIENT REMAINS ASYMPTOMATIC AT THIS TIME. MD NOTIFIED, AWAITING ORDERS
[2022-04-11 04:25] LABS: ANION GAP 9.4 (8-16); CARBON DIOXIDE 21.1 mmol/L (21-32); CREATININE 1.3 mg/dL (0.6-1.3); POTASSIUM 3.5 mmol/L (3.5-5.1)
--- NOTE | 2022-04-11 04:40 | NUR ---
PATIENT COMPLAINING OF 10/10 PAIN THROUGHOUT BODY. MORPHINE PRN PROVIDED.
[2022-04-11] MEDS: NACL 0.9% 1,000 ML IV SCH (04:55)
--- NOTE | 2022-04-11 06:00 | NUR ---
ATTEMPTED PERIPHERAL IV WITH 2 UNSUCCESSFUL ATTEMPTS, NOTIFIED. ORDER FOR MIDLINE PLACED
--- NOTE | 2022-04-11 06:00 | NUR ---
PAGED AGAIN. DR JACQUES CALLED AND INFORMED OF ABNORMAL BLOOD SUGAR LEVELS AND IV PAIN. ORDERS PLACED.
[2022-04-11] MEDS ORDERED: DEXTROSE 10% 250 ML IV SCH (07:05)
--- NOTE | 2022-04-11 07:30 | NUR ---
Received report on pt. Pt AOx4, in no signs of distress on room air. Pt currently receiving D10 to right EJ 18G. Per report, pt noted with blood sugar 43 prior to starting D10. Pt provided with snacks and drink. Pt noted with generalized edema.
--- NOTE | 2022-04-11 07:53 | NUR ---
REPORT ENDORSED TO CHRIS SANTOS FOR CONTINUITY OF CARE
[2022-04-11 08:09] LABS: T4 (THYROXINE) 5.1 ug/dL (4.5-12.0)
[2022-04-11] MEDS: ONDANSETRON 4 MG/2 ML VIAL IVP PRN ×3 (08:34→16:14)
[2022-04-11 09:41] LABS: ANION GAP 10.5 (8-16); CARBON DIOXIDE 20.7 mmol/L (21-32); CREATININE 1.2 mg/dL (0.6-1.3); POTASSIUM 3.2 mmol/L (3.5-5.1)
--- NOTE | 2022-04-11 09:45 | NUR ---
Dr. Ferguson rounding on pt.
[2022-04-11] MEDS: INSULIN LANTUS 100 UNITS/ML 10 ML VIAL SUBQ SCH (10:08)
--- NOTE | 2022-04-11 12:00 | NUR ---
DISCHARGE PLANNING PATIENT IS A 32 YEAR OLD FEMALE ADMITTED TO THE [facility]/ED ON 04/09/2022 DUE TO PRESENTING WITH GENERALIZED WEAKNESS. PATIENT HAS HX. OF DIABETES, SUBSTANCE USE AND NONCOMPLIANT WITH MEDICATIONS. PATIENT HAS HX. OF MULTIPLE ADMISSIONS. SW MEET WITH PATIENT AT BEDSIDE TO DISCUSS AND GATHER HER UPDATED COLLATERAL INFORMATION SINCE PATIENT WAS JUST DISCHARGE ON 04/06/2022. PATIENT WAS AWAKE AND ALERT SEEMS UPSET AND WAS VERY SHORT WITH HER RESPONSES. SW DISCUSS HER LIVING SITUATION (HOMELESS LIVING IN [place]) SW DISCUS WITH PATIENT OF THE USE OF REFERRALS AND PROVIDED HER WITH NEW RESOURCES TO SENIOR LIVING IN THE AREA (FOR WOMEN ONLY) SW PROVIDED PATIENT WITH TRANSITIONAL HOUSING RESOURCES FOR HER AND MOTHER TO APPLY AND GO FOR INTERVIEWS TO THE PLACES THAT GIVE HER AND MOTHER A MORE STABLE LIVING SITUATION. DISCUSSED THE NEED FOR HER AND HER MOTHER TO CALL AND REQUEST FOR A PHONE INTERVIEW. SW DISCUSS THE IMPORTANCE OF FOLLOWING UP WITH THE REFERRALS. PATIENT AGREED AND WILL ATTEMPT TO CALL HERSELF OR HAVE HER MOTHER CALL. PER PATIENT SHE HAS NO ADVANCE DIRECTIVES AND REFUSE INF. FORMS PROVIDED BY VARUN. PATIENT REPORTED THAT HER MOTHER IS HER EMERGENCY CONTACT AND MEDICAL DECISION MAKER. PATIENT REPORTED NOT HAVING ANY ISSUES WITH HER MEDICATIONS AND REPORTED BEEN COMPLIANT WITH HER MEDS DESPITE THAT THE DOCTOR DO NOT BELIEVE HER. PATIENT GOT UPSET AND STARTED TO CRY STATING " I DO TAKE ALL MY MEDS AND I DO EAT WELL EVEN IF NO ONE BELIEVES ME" SW DISCUSSED REALITY OF HER ADMISSIONS AND DECLINING OF HER HEALTH. PATIENT REPLY " ILL JUST KEEP TRYING MY BEST" PATIENT REPORTED WANTING TO DISCHARGE TO HER MOTHER AND CURRENT LIVING SITUATION WHEN SHE IS STABLE FOR DISCHARGE AND REFUSED OTHER OPTIONS. VARUN EXPLAINED TO PATIENT THAT [facility] CM AND [facility] CM WILL BE IN CONTACT WITH PATIENT AND MOTHER TO MET AND DISCUSS DISCHARGE PLANNING WHEN SHE IS STABLE AND CLOSER TO [place]. PATIENT AGREED AND SW/CM WILL FOLLOW UP NEEDED.
--- NOTE | 2022-04-11 14:25 | NUR ---
04/11/22 RD INITIAL ASSESSMENT COMPLETED PLEASE REFER TO NUTRITION ASSESSMENT UNDER CARE ACTIVITY FOR ESTIMATED NUTRITIONAL NEEDS. 1. CONTINUE [facility] 60GM DIET TOLERATED 2. MONITOR BLOOD GLUCOSE LEVELS 3. RD TO FOLLOW-UP 7 DAYS, LOW RISK DOREEN IGLESIAS RD
--- NOTE | 2022-04-11 15:00 | NUR ---
DISCHARGE PLANNING SW, CM AND [facility]/CM MET WITH PATIENT AND MOTHER AT BEDSIDE TO DISCUSS ALTERNATIVE OPTIONS TO TX. WHEN PATIENT IS STABLE AND READY FOR DISCHARGE. [facility] IVANIAJAYY CHINO OFFERED PATIENT A PROGRAM WHERE HER MEDICATION AND TX. CAN BE MONITOR AND PATIENT CARE CAN BE FOLLOW TO AVOID CRISIS AND HOSPITALIZATION ADMISSIONS DUE TO LACK OF MEDICATION INTAKE AND BALANCE CARE FROM PATIENT. PATIENT AND MOTHER AGREED TO PARTICIPATED IN THE PROGRAM AND WILL BE PROVIDING THEIR RESIDING INFORMATION ONE DAY PRIOR TO DC. PATIENT'S MOTHER STATED BEEN ONLY AVAILABLE IN THE MORNINGS AND AFTERNOONS TO BE ABLE TO MEET OR TALK OVER THE PHONE, DUE TO STARTING HER JOB AT 2:00PM EVERY DAY. PATIENT'S MOTHER ALSO PROVIDED PATIENT'S 28 YEAR-OLD SISTER AVILA TO CONTACT IN THE AFTER NOON WHILE MOTHER IS AT WORK IF THERE IS A NEED AND SHE IS NOT AVAILABLE PATIENT'S SISTER CAN BE REACH AT THAT NUMBER. PER PATIENT'S MOTHER SHE IS THANKFUL THAT [facility] CM CAN COORDINATE THE SERVICES AND TEAM MEMBERS TO SEE AND MONITOR PATIENT AFTER HER DC. SW AND CM WILL BE FOLLOW UP NEEDED.
--- NOTE | 2022-04-11 15:31 | NUR ---
late entry- IV normal saline discontinued at 0029.
--- NOTE | 2022-04-11 16:34 | NUR ---
Blood sugar 44, pt she will drink juice and requested for more snacks before attempting glucose recheck.
--- NOTE | 2022-04-11 17:40 | NUR ---
Blood sugar recheck: 50. Pt given 1 amp D50 per protocol. Pt states she will wait for dinner to eat and does not feel like having juice or jello
[2022-04-11] MEDS: DEXTROSE 50% 50 ML SYR IVP PRN ×2 (17:51→21:31)
--- NOTE | 2022-04-11 18:33 | NUR ---
Pt up in bed eating dinner
--- NOTE | 2022-04-11 19:30 | NUR ---
Endorsed plan of care to Tarsha SANTOS. Pt still up in bed eating.
[2022-04-11] MEDS: traZODone 50 MG TAB PO SCH (21:00)
--- NOTE | 2022-04-11 22:47 | NUR ---
I NOTICED THAT THE PT SYSTOLIC BP WAS ELEVATED IN THE 160-180'S , AND THERE WAS NO PRN PROVIDED, SO I CALLED DR. PRIDE AND OBTAINED AN ORDER FOR CLONIDINE 0.1MG Q6H PRN FOR A SYSTOLIC BP >160.
[2022-04-11] MEDS ORDERED: CLONIDINE HYDROCHLORIDE 0.1 MG TAB PO PRN (22:50)
[2022-04-12] VITALS (9 sets, daily range): BP systolic 99–152; BP diastolic 65–116
[2022-04-12] MEDS: MORPHINE SULFATE 4 MG/ML SYR IVP PRN ×5 (02:06→22:33)
[2022-04-12 06:36] LABS: ANION GAP 13.2 (8-16); CARBON DIOXIDE 18.3 mmol/L (21-32); POTASSIUM 3.5 mmol/L (3.5-5.1)
[2022-04-12 06:46] LABS: BASOPHILS # (AUTO) 0.1 K/uL (0.00-0.22); EOSINOPHILS # (AUTO) 0.2 K/uL (0-0.4); EOSINOPHILS % (AUTO) 2.4 % (0.0-4.0); HEMATOCRIT 23.9 % (36-48); HEMOGLOBIN 7.9 g/dL (12.0-16.0); LYMPHOCYTES # (AUTO) 3.8 K/uL (2.5-16.5); MEAN CORPUSCULAR HEMOGLOBIN 28 pg (27-31); MEAN CORPUSCULAR HGB CONC 33 g/dL (33-37); MEAN CORPUSCULAR VOLUME 84.6 fL (80-94); MONOCYTES # (AUTO) 0.6 K/uL (0.8-1.0); MONOCYTES % (AUTO) 7.3 % (1.7-9.3); NEUTROPHILS # (AUTO) 3.4 K/uL (1.8-7.7); NEUTROPHILS % (AUTO) 42.3 % (42.2-75.2); PLATELET COUNT (AUTO) 598 K/uL (140-450); RED BLOOD CELL COUNT(AUTO) 2.82 MIL/uL (4.20-5.40); RED CELL DISTRIBUTION WIDTH 16.6 % (11.6-13.7)
--- NOTE | 2022-04-12 07:21 | NUR ---
RECEIVED REPORT FROM [facility] PRODUCT SAFETY COMPLIANCE LEADER FOR CONTINUITY OF CARE. PT SUPINE IN THE BED, AAOX4, PERRLA. ON RM AIR, NO S/S RESP DISTRESS. SR ON MONITOR. BOWEL SOUNDS ACTIVE, LAST BM 04/09. VOIDS FREELY USES BEDSIDE COMMODE. REJ 18G SALINE LOCK, PATENT, INTACT. MILD EDEMA TO BUE BLE. SKIN INTACT. MILD WEAKNESS TO BUE BLE. ABLE TO MAKE NEEDS KNOWN. CALL LIGHT WITHIN REACH, ON STANDARD PRECAUTIONS. SAFETY PRECAUTIONS MET. INITIAL ASSESSMENT COMPLETE, WILL CONTINUE TO CLOSELY MONITOR.
--- NOTE | 2022-04-12 07:21 | NUR ---
GAVE REPORT TO EMERITA SANTOS WHO ASSUMED TOTAL CARE OF THE PATIENT, AND ALL QUESTIONS WERE ANSWERED. PT IS BEING TRANSFERRED TO MST/TELE THIS AM, AND I NOTIFIED THE FAMILY.
--- NOTE | 2022-04-12 07:50 | NUR ---
PT TRANSFERRED TO MED SURG 106A. ENDORSED BEDSIDE REPORT TO ILEANA BECERRIL RN FOR CONTINUITY OF CARE. VSS, NO S/S ACUTE DISTRESS. CALL LIGHT WITHIN REACH. SAFETY PRECAUTIONS MET.
--- NOTE | 2022-04-12 07:50 | NUR ---
RECEIVED BEDSIDE REPORT FROM MONIQUE SANTOS FOR CONTINUITY OF CARE. PT IS AWAKE AND ALERT. A&OX4. ON RA WITH BREATHING UNLABORED. CONTINENT OF THE BOWEL AND BLADDER. SKIN IS WARM, DRY, AND INTACT. GENERALIZED EDEMA NOTED. IV IS INTACT IN THE LEFT EJ PATENT. WILL CONTINUE TO MONITOR.
[2022-04-12] MEDS: INSULIN LANTUS 100 UNITS/ML 10 ML VIAL SUBQ SCH (09:00)
[2022-04-12] MEDS: NACL 0.9% 1,000 ML IV SCH (09:03)
[2022-04-12] MEDS: BLOOD GLUCOSE MONITORING 1 DEV DEV FS SCH ×4 (09:03→21:20)
--- NOTE | 2022-04-12 09:03 | NUR ---
PT'S BS READING WAS 66. PT STATED SHE DID NOT WANT DEXTROSE 50% IVP AGAIN. INFORMED HER OF THE IMPORTANCE OF THE MEDICATION. PT STILL REFUSED. PT WAS GIVEN A SANDWICH, JUICE, AND SODA REQUESTED. WILL RECHECK BS IN THIRTY MIN AFTER EATING.
--- NOTE | 2022-04-12 09:08 | NUR ---
PT STATES SHE HAS PAIN ALL OVER BODY AT A SCALE OF 8/10. PT WAS GIVEN MORPHINE FOR PAIN ORDERED. BP WAS 152/99 PRIOR TO ADMINISTRATION OF MEDICATION.
--- NOTE | 2022-04-12 09:33 | NUR ---
PT'S BS IS 72 AT THIS TIME, PT REQUEST A TUNA SANDWICH, WILL GIVE TUNA SANDWICH PT REQUESTED.
--- NOTE | 2022-04-12 09:50 | NUR ---
NOTIFIED DR SMITH REGARDING PT STATE TAKE LISINOPRIL AND METOPROLOL, ZULAY AT HOME, SAID OK TO CONTINUE HOME MEDICATION DOSAGE.
--- NOTE | 2022-04-12 10:11 | NUR ---
DR. SMITH AT THE BEDSIDE ASSESSING PT. INFORMED HIM IV IS NOT WORKING AND PT STATED SHE DOES NOT WANT TO BE POKED AGAIN WITH THE NEEDLE BECAUSE THEY WERE UNABLE TO GET THE IV IN. PER MD INSERT MIDLINE. CONSENT WAS SIGNED AND PROCEDURE WAS EXPLAINED. ALL QUESTIONS ANSWERED. CALLED PICC LINE SERVICE AND THEY ARE AWARE.
--- NOTE | 2022-04-12 11:25 | NUR ---
PICC LINE NURSE, ANN SANTOS, AT BEDSIDE TO PLACE MIDLINE ON PT. PT IS STABLE AT THIS TIME.
--- NOTE | 2022-04-12 12:00 | NUR ---
MIDLINE PLACED IN THE RIGHT UPPER ARM, PATENT AND INTACT. PT IS STABLE. RIGHT EJ IV REMOVED AND BLEEDING CONTROLLED.
--- NOTE | 2022-04-12 12:35 | NUR ---
POST OR LAP CHOLECYSTECTOMY VS DONE, VS WITHIN NORMAL. PT RESTING ON BED, RESPIRATION EVEN, UNLABORED, NO DISTRESS NOTED. CALL LIGHT WITHIN REACH, WILL CONTINUE TO MONITOR. Addendum: 04/12/22 at 1415 by Richar Mcqueen RN WRONG PT.
--- NOTE | 2022-04-12 13:45 | NUR ---
PT C/O PAIN 9/10 ON HER RIGHT SIDE BODY, ADMINISTERED MORPHINE 4MG/ML IV PUSH.
--- NOTE | 2022-04-12 14:45 | NUR ---
PT ASLEEP, STATED PAIN MEDICATION WORKING FOR HER, PT CONTROLLED AT THIS TIME.
--- NOTE | 2022-04-12 16:30 | NUR ---
PT RESTING ON BED COMFORTABLY, RESPIRATION EVEN, UNLABORED, NO DISTRESS NOTED. CALL LIGHT WITHIN REACH, WILL CONTINUE TO MONITOR.
--- NOTE | 2022-04-12 17:00 | NUR ---
BS 113 AT THIS TIME, NO INSULIN COVERAGE. PT REQUEST TO HAVE TUNA SANDWICH TONIGHT, INFORMED PT WILL GET TUNA SANDWICH TONIGHT.
--- NOTE | 2022-04-12 17:21 | NUR ---
ASSISTED PT GET UP AND WENT TO BATHROOM, PT TOLERATED WELL
--- NOTE | 2022-04-12 18:24 | NUR ---
PT C/O PAIN 10/10 ON HER RIGHT SIDE ARM AND BEHIND RIGHT EAR, EDUCATED PT USE DEEP BREATHING AND RELAXATION TECHNIQUE, NON EFFECTIVE, ADMIN MORPHINE 4MG/ML VIA IV PUSH ORDERED.
--- NOTE | 2022-04-12 19:01 | NUR ---
ENDORSED PT TO BAKERY AND DELI SALES MANAGER NURSE FOR CONTINUITY OF CARE. PT IS STABLE. PLAN OF CARE DISCUSSED.
--- NOTE | 2022-04-12 19:02 | NUR ---
GIVEN REPORT TO WORKERS COMPENSATION ANALYST RN AT BEDSIDE, DISCUSSED POINT OF CARE.
--- NOTE | 2022-04-12 19:05 | NUR ---
[id number] FROM AM NURSE FOR CONTINUITY OF CARE. PT IS A&OX4 .STABLE SITTING UP IN BED EATING DINNER. DENIES PAIN AT THIS TIME.ON RM AIR WITH NOS/S OF ACUTE DISTRESS.RR EVEN AND UNLABORED. GI INTACT. PT'S SKIN IS INTACT BUT EASILY BRUISED FROM IV'S AND BLOOD DRAWS. NOW HAS ERIC MIDLINE DBL LUMEN INSERTED 04/12/22. PT IS AMBULATORY AND CONTINENT. ALL SAFETY MEASURES IN PLACE. CALL LIGHT WITHIN REACH WILL CONTINUE TO UL2YFTAY.
--- NOTE | 2022-04-12 21:00 | NUR ---
HS MEDS GIVEN . CK=523 NO INSULIN COVERAGE NEEDED. SNACK AND HOT CHICKEN BROTH GIVEN. AT 2200 PT C/O 8/10 GENERALIZED PAIN. MSO4 4MG IVP GIVEN. EFFECTIVE PT SLEEPING AFTER 30 MINUTES. WILL CONTINUE TO MONITOR.
[2022-04-12] MEDS: traZODone 50 MG TAB PO SCH (21:21)
[2022-04-12] MEDS: levETIRAcetam 500 MG TAB PO SCH (21:21)
[2022-04-13 02:00] VITALS: BP 117/64
[2022-04-13] MEDS: MORPHINE SULFATE 4 MG/ML SYR IVP PRN ×4 (03:38→17:01)
[2022-04-13] MEDS: NACL 0.9% 1,000 ML IV SCH (04:05)
--- NOTE | 2022-04-13 05:00 | NUR ---
PT AWAKE ASKING FOR A SNACK. AT 0600 BY=527 COVERED WITH 6 UNITS OF HUMALOG INSULIN PER SLIDING SCALE.PT RESTING EYES CLOSED RR EVEN AND UNLABORED NO ACUTE DISTRESS NOTED.
[2022-04-13] MEDS: BLOOD GLUCOSE MONITORING 1 DEV DEV FS SCH ×3 (06:37→16:16)
[2022-04-13] MEDS: INSULIN LISPRO SLIDING SCALE 100 UNITS/ML VIAL SUBQ PRN ×2 (06:39→12:32)
--- NOTE | 2022-04-13 07:05 | NUR ---
ENDORSED REPORT TO AM NURSE FOR CONTINUITY OF CARE. PT IS STABLE.
--- NOTE | 2022-04-13 07:06 | NUR ---
RECEIVED REPORT FROM MELTER SUPERVISOR NURSE FOR CONTINUITY OF CARE. PATIENT ASLEEP NO DISTRESS NOTED. RESPIRATION EVEN AND NOT LABORED NO SHORTNESS OF BREATH. IV SITE ON RIGHT UPPER ARM MID LINE. ALL SAFETY MEASURE IN PLACE.
--- NOTE | 2022-04-13 07:38 | NUR ---
PATIENT COMPLAIN OF GENERALIZED PAIN AND NECK PAIN DUE TO REMOVAL OF CENTRAL LINE. RN IA GAVE MORPHINE MEDICATION ORDER.
[2022-04-13 08:00] VITALS: BP 113/77
--- NOTE | 2022-04-13 08:00 | NUR ---
Patient's Plan of Care was discussed and reviewed with BIOLOGICAL LAB TECHNICIAN: MONSERRAT
[2022-04-13] MEDS: levETIRAcetam 500 MG TAB PO SCH (08:23)
[2022-04-13] MEDS: INSULIN LANTUS 100 UNITS/ML 10 ML VIAL SUBQ SCH (08:27)
--- NOTE | 2022-04-13 08:32 | NUR ---
PATIENT ALERT GIVEN ALL HER DUE MEDICATION TOLERATED WELL.
[2022-04-13] MEDS ORDERED: METOPROLOL SUCCINATE 50 MG TABER PO SCH (09:00)
[2022-04-13] MEDS ORDERED: lisinopriL 20 MG TAB PO SCH (09:00)
[2022-04-13] MEDS ORDERED: ACET-6951 PO (10:40)
--- NOTE | 2022-04-13 11:50 | NUR ---
1035 CALLED MOTHER TO INFORM HER FOR THE INFO SPECIALIST TIME FOR PATIENT BUT NO ONE ANSWER AT FIRST UNABLE TO LEAVE MESSAGE. 1120 SECOND WOMEN CALLED AND CLAIMED THAT SHE'S NOT THERE AT THE MOMENT. WILL TRY TO CALL AGAIN
--- NOTE | 2022-04-13 12:41 | NUR ---
INFORM RN FOR PATIENT COMPLAIN OF PAIN AND REQUESTING FOR MORPHINE.
--- NOTE | 2022-04-13 13:00 | NUR ---
CALLED CHELSY REYNA PATIENT MOTHER LEFT MESSAGE FOR PT. PICK TIME.
--- NOTE | 2022-04-13 13:35 | NUR ---
RHODA REYNA MOTHER OF THE PATIENT CALLED BACK AND SAID SHE CURRENTLY AT [facility] AND WILL ENTRY MANAGER PATIENT SOON SHE 'S DONE IN THERE.
[2022-04-13 15:22] VITALS: BP 113/77
--- NOTE | 2022-04-13 15:30 | NUR ---
MOTHER CALLED AND TALK TO DAUGHTER. I ASKED HE IF SHE GOING TO FIELD WORKER HER DAUGHTER SHE SAID NOT YET.
--- NOTE | 2022-04-13 16:18 | NUR ---
PATIENT BLOOD SUGAR CHECKED BY STUDENT AND ITS 60 I RECHECKED AND IT WAS 70 GIVEN CRACKERS AND JUICE AND SAND WHICH. WHEN I INFORM PATIENT THAT WE MIGHT GIVE HER DEXTROSE SHE REFUSED STATED I'M OKAY I JUST NEED TO EAT AND DRINK. PATIENT ALERT ORIENTED NO OTHER S/S OF HYPOGLYCEMIA.
[2022-04-13 18:00] VITALS: BP 108/72
--- NOTE | 2022-04-13 18:28 | NUR ---
ERIC MIDLINE REMOVED, CATHETER INTACT. NO BLEEDING NOTED. DENIES PAIN
--- NOTE | 2022-04-13 18:40 | NUR ---
PATIENT ALERT ORIENTED GIVEN DISCHARGE PACKET WITH INSTRUCTION REMOVED NAME BAND AND MIDLINE NO S/S OF BLEEDING. PRESSURE DRESSING APPLIED. GIVEN ALL BELONGING. WHEELED TO MOTHER PRIVATE VEHICLE.
== END 2022-04-13 18:35 | disposition home or self-care (01) | DRG 420 ==
LOC: MED 20:10 → MMU 21:49 → MIC 04-10 00:02 → MTU 04-12 07:50
PROVIDERS: ADMIT Internal Medicine; ATTEND Internal Medicine
PROC: 5A09357 Assistance with Respiratory Ventilation, Less than 24 Consecutive Hours, Continuous Positive Airway Pressure (ICD-10-PCS; principal; 2022-04-10)
PROC: 05HY33Z Insertion of Infusion Device into Upper Vein, Percutaneous Approach (ICD-10-PCS; 2022-04-12)
PROC: B54MZZA Ultrasonography of Right Upper Extremity Veins, Guidance (ICD-10-PCS; 2022-04-12)
DX: E10.10 Type 1 diabetes mellitus with ketoacidosis without coma (principal); G93.41 Metabolic encephalopathy; N17.9 Acute kidney failure, unspecified; E43 Unspecified severe protein-calorie malnutrition; E87.3 Alkalosis; I10 Essential (primary) hypertension; E87.5 Hyperkalemia; D64.9 Anemia, unspecified; D75.838 Other thrombocytosis; K21.9 Gastro-esophageal reflux disease without esophagitis; F32.A Depression, unspecified; E87.6 Hypokalemia; K05.10 Chronic gingivitis, plaque induced; Z20.822 Contact with and (suspected) exposure to COVID-19; Z91.14 Patient's other noncompliance with medication regimen; Z88.0 Allergy status to penicillin; Z91.018 Allergy to other foods; Z79.891 Long term (current) use of opiate analgesic; Z79.899 Other long term (current) drug therapy; Z79.1 Long term (current) use of non-steroidal anti-inflammatories (NSAID); Z68.21 Body mass index [BMI] 21.0-21.9, adult
CPT/HCPCS: 36415; 36556; 36600; 80048; 80053; 82803; 82948; 83036; 83735; 84100; 84436; 84439; 84443; 84479; 85025; 87081; 93005; 94660; 96361; 96365; 96366; 99291; J0360; J1815; J2270; J2405; J7030

== ENCOUNTER 2022-07-13 05:02 | Inpatient (IN) | payer OTHER ==
[~2022-07-13] VITALS: Ht 162.6 cm; Wt 36.3 kg
[~2022-07-13 05:02] MED LIST changes: +ACET-6951 PO; -ACET-9525 PO
[2022-07-13 05:21] VITALS: BP 93/74
--- NOTE | 2022-07-13 05:28 | NUR ---
PT WHEEL CHAIR ASSISTED TO ER BED 8 FOLLOWING TRIAGE
--- NOTE | 2022-07-13 05:28 | NUR ---
PT WHEELCHAIR TO ED 8, PLACED PT IN GOWN AND REPORT GIVEN TO COLT SANTOS
--- NOTE | 2022-07-13 05:30 | NUR ---
PATIENT BIBA FOR ELEVATED BLOOD SUGAR, IMMEDIATELY PLACED ON KEYBOARD TEACHER. BLOOD SUGAR IN TRIAGE = 530+ PENDING PICC PLACEMENT
--- NOTE | 2022-07-13 05:45 | NUR ---
DR WYNNE EXAMINING PT AT BEDSIDE
[2022-07-13] MEDS ORDERED: NACL 0.9% 2,000 ML IV ONE (06:00)
[2022-07-13] MEDS ORDERED: levoFLOXacin 750 MG TAB PO ONE (06:00)
--- NOTE | 2022-07-13 06:18 | NUR ---
RADIOLOGY AT BEDSIDE
--- NOTE | 2022-07-13 06:42 | NUR ---
RT AT BEDSIDE
--- NOTE | 2022-07-13 07:03 | NUR ---
DR MONTALVO AT BEDSIDE EXAMINING PT
--- NOTE | 2022-07-13 07:20 | NUR ---
Report recieved from TOM Canchola for transfer of care.
--- NOTE | 2022-07-13 07:29 | NUR ---
Pt report given to ALEXANDR. Transfer of care at this time.
[2022-07-13 07:38] LABS: CREATININE 1.7 mg/dL (0.6-1.3); GFR ARICAN-AMERICAN 45 mL/min (>90)
[2022-07-13 07:42] LABS: BASOPHILS % (AUTO) 0.3 % (0.0-2.0); EOSINOPHILS # (AUTO) 0.1 K/uL (0-0.4); HEMATOCRIT 26.7 % (36-48); HEMOGLOBIN 8.7 g/dL (12.0-16.0); LYMPHOCYTES # (AUTO) 2.9 K/uL (2.5-16.5); LYMPHOCYTES % (AUTO) 40.7 % (20.5-51.1); MEAN CORPUSCULAR HEMOGLOBIN 27 pg (27-31); MEAN CORPUSCULAR HGB CONC 33 g/dL (33-37); MEAN CORPUSCULAR VOLUME 81.7 fL (80-94); MONOCYTES # (AUTO) 0.8 K/uL (0.8-1.0); MONOCYTES % (AUTO) 11.7 % (1.7-9.3); NEUTROPHILS # (AUTO) 3.3 K/uL (1.8-7.7); NEUTROPHILS % (AUTO) 46.3 % (42.2-75.2); PLATELET COUNT (AUTO) 577 K/uL (140-450); RED BLOOD CELL COUNT(AUTO) 3.26 MIL/uL (4.20-5.40)
[2022-07-13 07:59] LABS: ACETONE, SERUM NEGATIVE (NEGATIVE)
--- NOTE | 2022-07-13 08:04 | NUR ---
mother: [phone]
[2022-07-13 10:08] LABS: POTASSIUM 3.1 mmol/L (3.5-5.1); SODIUM SERUM 132 mmol/L (136-145)
[2022-07-13 10:09] LABS: ANION GAP 13.1 (8-16); CHLORIDE 101 mmol/L (98-107)
[2022-07-13 10:10] LABS: GLUCOSE 445 mg/dL (74-106); UREA NITROGEN, BLOOD 39 mg/dL (7-18)
[2022-07-13 10:11] LABS: TOTAL BILIRUBIN 0.1 mg/dL (0.0-1.0)
[2022-07-13 10:12] LABS: ALBUMIN 0.7 g/dL (3.4-5.0); ASPARTATE AMINOTRANSFERASE 12 U/L (15-37)
[2022-07-13] MEDS ORDERED: KCL 20 MEQ/WATER INJ PREMIX 200 ML IV ONE (10:20)
--- NOTE | 2022-07-13 11:13 | NUR ---
pt taken to ct at this time
--- NOTE | 2022-07-13 11:36 | NUR ---
Lab at bedside. a
--- NOTE | 2022-07-13 11:53 | NUR ---
# 8 FR Urinary catheter inserted utilizing sterile technique. Immediate return of 30 ml yellow urine noted. Urine sample collected and sent to lab. Pt tolerated procedure well.
[2022-07-13] MEDS ORDERED: MAGNESIUM OXIDE 400 MG TAB PO PRN (12:15)
[2022-07-13] MEDS ORDERED: METOCLOPRAMIDE 10 MG/2 ML INJ VIAL IVP PRN (12:15)
[2022-07-13] MEDS ORDERED: POTASSIUM CHLORIDE 10 MEQ TABER PO PRN (12:15)
[2022-07-13] MEDS ORDERED: HYDROcodone/APAP 5/325 MG 1 TAB TAB PO PRN (12:15)
[2022-07-13] MEDS ORDERED: INSULIN LISPRO SLIDING SCALE 100 UNITS/ML VIAL SUBQ PRN (12:15)
[2022-07-13] MEDS: NACL 0.9% 1,000 ML IV SCH ×2 (12:15→20:49)
[2022-07-13] MEDS ORDERED: ONDANSETRON 4 MG/2 ML VIAL IVP PRN (12:15)
[2022-07-13] MEDS ORDERED: ACETAMINOPHEN 325 MG TAB PO PRN (12:15)
[2022-07-13 12:26] LABS: APPEARANCE,URINE HAZY (CLEAR); BILIRUBIN,URINE NEGATIVE (NEGATIVE); BLOOD, URINE TRACE-I (NEGATIVE); COLOR,URINE YELLOW (YELLOW); LEUKOCYTE ESTERASE ,URINE NEGATIVE (NEGATIVE); NITRITE, URINE NEGATIVE (NEGATIVE); UGLUCOSE 3+ (NEGATIVE)
[2022-07-13 12:54] LABS: RBC,URINE NONE SEEN /HPF (0-5); URINE AMORPHOUS URATE 3+ /HPF (None Seen); WBC,URINE 16-25 (MOD) /HPF (0-5); YEAST,URINE Few /HPF (None Seen)
[2022-07-13] MEDS ORDERED: INSULIN LANTUS 100 UNITS/ML 10 ML VIAL SUBQ ONE (13:00)
[2022-07-13] MEDS ORDERED: INSULIN LISPRO 100 UNITS/ML VIAL SUBQ SCH (13:03)
--- NOTE | 2022-07-13 13:04 | NUR ---
Dr. Upton, admitting doctor, evaluating patient at bedside.
[2022-07-13 13:08] LABS: BARBITURATE, URINE NEGATIVE ng/ml (NEG <=200); BENZODIAZEPINE, URINE NEGATIVE ng/mL (NEG <=200); CANNABINOID, URINE POSITIVE ng/mL (NEG <=50); COCAINE, URINE NEGATIVE ng/mL (NEG <=300); OPIATE, URINE NEGATIVE ng/mL (NEG <=2000); PHENCYCLIDINE SCREEN,URINE NEGATIVE ng/mL (NEG <=25)
--- NOTE | 2022-07-13 14:00 | NUR ---
POTASSIUM IV STARTED UNABLE TO DOCUMENT ON EMAR.
[2022-07-13] MEDS: MORPHINE SULFATE 4 MG/ML SYR IVP PRN ×2 (14:02→18:57)
--- NOTE | 2022-07-13 14:55 | NUR ---
Patient was offered a snack.
--- NOTE | 2022-07-13 15:08 | NUR ---
Med rec complete
--- NOTE | 2022-07-13 18:25 | NUR ---
Patient was offered dinner tray. Patient is sitting up eating dinner.
--- NOTE | 2022-07-13 19:49 | NUR ---
Report given to TOM Sullivan for transfer of care.
--- NOTE | 2022-07-13 20:00 | NUR ---
2000: REC'D PT FROM TOM STRANGE TO ASSUME PLAN OF CARE. PT'S A/OX4, DENIES PAIN, A/OX4, USED BEDPAN WITH ASSIST. POC DISCUSSED. STILL WAITING FOR AVAILABLE ROOM ON M/S SAFETY CONTINUE TO OBSERVE. CONTINUE MONITOR
--- NOTE | 2022-07-14 00:12 | NUR ---
PT'S C/O GEN PAIN. KIMBERLEE CARE RENDERED.
[2022-07-14] MEDS: MORPHINE SULFATE 4 MG/ML SYR IVP PRN ×6 (00:28→21:46)
[2022-07-14] MEDS ORDERED: DEXTROSE 50% 50 ML SYR IVP ONE ×2 (00:35→00:37)
[2022-07-14] MEDS ORDERED: DEXTROSE 10% 250 ML IV SCH (00:35)
--- NOTE | 2022-07-14 00:35 | NUR ---
BS 28 , Dr. Hernández notified, verbal order D50 IV push stat.
--- NOTE | 2022-07-14 00:40 | NUR ---
CHECKED BLOOD SUGAR =28. ER MD AWARE AND ORDERED TO GIVE D50 IVP and d10 250ml ivf pt's A/OX4, GIVEN PAIN MEDS REQUESTED 4 MG MORPHINE. PT'S JUST FINISHED EATING PASTA, BREAD, CRAKERS AND 2 JELLOS. ALSO GIVEN OJ AND SODA. WILL RECHECK BLOOD SUGAR
[2022-07-14] MEDS ORDERED: DEXTROSE 10% 1,000 ML IV ONE (00:51)
--- NOTE | 2022-07-14 00:54 | NUR ---
RE CHECKED BLOOD SUGAR =133. D10 250 ML INFUSED PT'S AOX4
[2022-07-14] MEDS: NACL 0.9% 1,000 ML IV SCH ×2 (04:51→12:53)
--- NOTE | 2022-07-14 06:34 | NUR ---
PT'S SLEEPING AFTER MEDICATED WITH MORPHINE 4MG IVP PRN FOR PAIN. BLOOD SUGAR 95, GIVEN CRACKERS AND JUICE. CONTINUE IVF NO FALLS AND NO INJURY DURING SHIFT. KEEPS CLEAN AND DRY. WILL ENDORSE TO AM RN TO ASSUME PLAN OF CARE.
--- NOTE | 2022-07-14 07:07 | NUR ---
ENDORSED PT TO ALEXANDR TO ASSUME PLAN OF CARE.
--- NOTE | 2022-07-14 07:15 | NUR ---
Recieved report from TOM Sullivan for transfer of care
--- NOTE | 2022-07-14 07:18 | NUR ---
PT ASKING FOR CELL PHONE, NO CELL PHONE APPREARS ANYWHERE FROM HER BELONGINGS. SHOWED TOM STRANGE AND EMT NO CELL PHONE AND ROCK WOOL APPLICATOR
--- NOTE | 2022-07-14 08:20 | NUR ---
Patient will be admitted to care of Dr. Upton. Admited to Telemetry. Will go to room ICU bed 6. Belongings list completed. Report to DanielaTOM.
[2022-07-14 08:30] VITALS: BP 157/110
--- NOTE | 2022-07-14 08:30 | NUR ---
DR. HOUSER HERE TO SEE THE PATIENT. STATED PATIENT NEEDS TRANSFER FOR MRI.
[2022-07-14 08:58] LABS: ANION GAP 11.8 (8-16); CARBON DIOXIDE 20.9 mmol/L (21-32); POTASSIUM 3.7 mmol/L (3.5-5.1)
[2022-07-14] MEDS: DOCUSATE SODIUM 100 MG GELCAP PO SCH ×2 (09:00→09:43)
[2022-07-14] MEDS ORDERED: INSULIN LISPRO SLIDING SCALE 100 UNITS/ML VIAL SUBQ PRN (09:05)
[2022-07-14 09:07] LABS: BASOPHILS % (AUTO) 0.7 % (0.0-2.0); EOSINOPHILS % (AUTO) 0.2 % (0.0-4.0); HEMATOCRIT 23.9 % (36-48); HEMOGLOBIN 8.1 g/dL (12.0-16.0); LYMPHOCYTES # (AUTO) 2.1 K/uL (2.5-16.5); LYMPHOCYTES % (AUTO) 44.3 % (20.5-51.1); MEAN CORPUSCULAR HEMOGLOBIN 27 pg (27-31); MEAN CORPUSCULAR HGB CONC 34 g/dL (33-37); MONOCYTES # (AUTO) 0.1 K/uL (0.8-1.0); NEUTROPHILS # (AUTO) 2.4 K/uL (1.8-7.7); NEUTROPHILS % (AUTO) 51.8 % (42.2-75.2); PLATELET COUNT (AUTO) 552 K/uL (140-450); RED BLOOD CELL COUNT(AUTO) 3.02 MIL/uL (4.20-5.40); RED CELL DISTRIBUTION WIDTH 16.1 % (11.6-13.7); WHITE BLOOD COUNT (AUTO) 4.6 K/uL (4.8-10.8)
[2022-07-14] MEDS: BLOOD GLUCOSE MONITORING 1 DEV DEV FS SCH ×3 (11:59→21:51)
[2022-07-14] MEDS: DEXTROSE 50% 50 ML SYR IVP PRN ×4 (11:59→23:59)
--- NOTE | 2022-07-14 11:59 | NUR ---
PT NOTED TO HAVE BEEN LETHARGIC THIS MORNING. ACCU-CHECK 20, D50 ADMINISTERED PER PROTOCOL, WILL REASSESS AND CONTINUE TO CLOSELY MONITOR.
[2022-07-14 12:00] VITALS: BP 144/98
--- NOTE | 2022-07-14 12:20 | NUR ---
COMPLAINED OF BACK, SCALE 10. MORPHINE NOT DUE. PATIENT VERBALIZED UNDERSTANDING.
--- NOTE | 2022-07-14 13:00 | NUR ---
DR. TAYLOR HERE TO SEE PATIENT, UPDATED. ORDERS RECEIVED.
--- NOTE | 2022-07-14 13:54 | NUR ---
ORDER RECEIVED FOR MRI OF LUMBAR SPINE TO R/O CAUDA EQUINA SYNDROME. RN SPOKE WITH NEWTON AT [facility] ([phone]), ORDER AND CLINICAL PACKET FAXED TO [facility]. DIRECTED BY NEWTON TO REFER THE PATIENT TO [facility], PACKET ALSO SENT TO THE TRANSFER CENTER. NEWTON WILL GIVE AUTH ONCE [place] CONFIRMS THEY CAN ACCOMMODATE THE PATIENT AND PROVIDE THE PROCEDURE CODES. SPOKE WITH SEEMA AT [facility] ([phone]), STATES MRI NOT LIKELY TO HAPPEN TODAY BUT WILL WORK ON IT.
[2022-07-14 16:00] VITALS: BP 110/73
--- NOTE | 2022-07-14 18:00 | NUR ---
BLOOD GLUCOSE LEVEL 12. AMP D50 IVP GIVEN. MILK, CRACKERS, JUICE GIVEN. PATIENT AWAKE AND ALERT.
--- NOTE | 2022-07-14 18:28 | NUR ---
PATIENT TRANSFERRED TO TELE VIA BED. REPORT CALLED TO TOM JJ. VSS
--- NOTE | 2022-07-14 18:31 | NUR ---
RECEIVE ICU NURSE REPORT THAT 32 YRS OLD PATIENT COME FROM HOME FOR BACK PAIN, ABDOMINAL PAIN W/ NAUSEA & VOMIT WHICH DIAGNOSIS WITH STARVATION KETOSIS, UNCONTROLLED DM, UTI, HYPOKALEMIS, HYPERGLYCEMIA, HLD, JANUSZ ON CKD; HX OF DM TYPE 1, CHRONIC BACK PAIN, HTN. PATIENT IS FULL CODE, ALLERGY TO LATEX, PENICILLINS, WEAK AND BED REST.NEPHROLOGY, DR. ALVARADO ON TREATMENT TEAM. PATIENT IS ON MORPHINE 4MG Q4 HRS FOR BACK PAIN AND LAST DOSE GIVEN AT 1730. PATIENT ALERT X 3 ON ACCUCHECK AC&HS AND MOST RECENT BLOOD SUGAR IS 19 WHICH END WITH ORDER D50 PRN. PIV AT R. THUMB 22G SALINE LOCK, MIDLINE AT ERIC INFUSING NS @75ML/HR. MRI FOR BACK ORDER FOR TINGLING AT FEET. WILL CONTINUE TO MONITOR
--- NOTE | 2022-07-14 19:29 | NUR ---
RECEIVED ENDORSEMENT FROM DAY SHIFT NURSE FOR CONTINUITY OF CARE. PT IS ON BED, SKIN INTACT AND NO BREAKDOWN. MIDLINE DOUBLE LUMEN ON RIGHT UPPER ARM INTACT AND PATENT. IV FLUID NS 0.9% INFUSING WELL AT 75ML/HR. NO SIGN/SYMPTOM OF INFECTION ON IV SITE. PT IS AWAKE, ALERT AND ORIENTED AND ABLE TO VERBALIZED NEEDS. CONTINUE TO MONITOR.
--- NOTE | 2022-07-14 19:30 | NUR ---
GIVEN ENDORSEMENT TO PM SHIFT NURSE WHILE PATIENT REST IN BED, MOST RECENT BLOOD SUGAR IS 19 WHICH END WITH ORDER D50 PRN. PIV AT R. THUMB 22G SALINE LOCK, MIDLINE AT ERIC INFUSING NS @75ML/HR.
[2022-07-14 20:00] VITALS: BP 149/102
[2022-07-14] MEDS: INSULIN LANTUS 100 UNITS/ML 10 ML VIAL SUBQ SCH (21:00)
--- NOTE | 2022-07-14 21:27 | NUR ---
PT BLOOD SUGAR 22, D50% ADMINISTERED
--- NOTE | 2022-07-14 22:30 | NUR ---
PT BLOOD SUGAR 40, PT STARTS TO EAT DINNER AND REQUESTED TO HAVE SODA.
--- NOTE | 2022-07-14 23:50 | NUR ---
BLOOD SUGAR CHECK = 40, ADMINISTERED D50%
--- NOTE | 2022-07-14 23:59 | NUR ---
REVISED PREVIOUS NOTES. D50% ADMINISTERED AT 2359, NOT 2350.
[2022-07-15] MEDS: NACL 0.9% 1,000 ML IV SCH (00:41)
--- NOTE | 2022-07-15 00:57 | NUR ---
BLOOD SUGAR CHECK = 65. PT AWAKE, ALERT AND VERBALLY RESPONSIVE. PT DENIES OF PAIN OR HEADACHE.
--- NOTE | 2022-07-15 01:15 | NUR ---
PT IS DRINKING ORANGE JUICE. AWAKE, ALERT AND VERBALLY RESPONSIVE.
[2022-07-15] MEDS: MORPHINE SULFATE 4 MG/ML SYR IVP PRN ×4 (02:43→18:33)
--- NOTE | 2022-07-15 02:43 | NUR ---
PT COMPLAINTS OF BACK PAIN 06/08, PAIN MEDICATION MORPHINE ADMINISTERED ORDERED.
[2022-07-15 04:00] VITALS: BP 131/86
[2022-07-15] MEDS: DEXTROSE 50% 50 ML SYR IVP PRN ×3 (04:28→11:20)
--- NOTE | 2022-07-15 04:28 | NUR ---
BLOOD SUGAR CHECK = 48. D50% ADMINISTERED ORDERED.
[2022-07-15] MEDS: BLOOD GLUCOSE MONITORING 1 DEV DEV FS SCH ×4 (06:52→20:01)
--- NOTE | 2022-07-15 06:58 | NUR ---
BLOOD SUGAR CHECK = 48, D50% ADMINISTERED ORDERED. PT AWAKE, ALERT AND TOLERATE WELL.
--- NOTE | 2022-07-15 07:30 | NUR ---
PT IS STABLE, AWAKE AND NOT IN PAIN. ALL SAFETY MEASURES ARE IN PLACE. ENDORSED TO DAY SHIFT NURSE FOR CONTINUITY OF CARE.
[2022-07-15 08:00] VITALS: BP 149/91
[2022-07-15 08:46] LABS: BASOPHILS # (AUTO) 0.1 K/uL (0.00-0.22); BASOPHILS % (AUTO) 0.8 % (0.0-2.0); EOSINOPHILS % (AUTO) 0.2 % (0.0-4.0); HEMOGLOBIN 7.4 g/dL (12.0-16.0); LYMPHOCYTES # (AUTO) 2.2 K/uL (2.5-16.5); LYMPHOCYTES % (AUTO) 28.7 % (20.5-51.1); MEAN CORPUSCULAR HEMOGLOBIN 26 pg (27-31); MEAN CORPUSCULAR HGB CONC 32 g/dL (33-37); MEAN CORPUSCULAR VOLUME 81.4 fL (80-94); MONOCYTES # (AUTO) 0.3 K/uL (0.8-1.0); MONOCYTES % (AUTO) 3.7 % (1.7-9.3); NEUTROPHILS # (AUTO) 5.2 K/uL (1.8-7.7); NEUTROPHILS % (AUTO) 66.6 % (42.2-75.2); PLATELET COUNT (AUTO) 439 K/uL (140-450); RED BLOOD CELL COUNT(AUTO) 2.83 MIL/uL (4.20-5.40); RED CELL DISTRIBUTION WIDTH 16.5 % (11.6-13.7); WHITE BLOOD COUNT (AUTO) 7.7 K/uL (4.8-10.8)
[2022-07-15] MEDS: DOCUSATE SODIUM 100 MG GELCAP PO SCH (08:50)
[2022-07-15 08:56] LABS: ANION GAP 12.1 (8-16); CARBON DIOXIDE 19.5 mmol/L (21-32); POTASSIUM 3.6 mmol/L (3.5-5.1)
[2022-07-15] MEDS ORDERED: levoFLOXacin 500 MG TAB PO SCH (09:00)
[2022-07-15] MEDS ORDERED: CALCIUM GLUCONATE 10% 1,000 MG in NACL 0.9% 50 ML IV ONE (09:45)
[2022-07-15] MEDS ORDERED: DEXT 5% / NACL 0.45% 1,000 ML IV SCH (09:45)
[2022-07-15] MEDS ORDERED: CALCIUM GLUC 1 GM/50 mL NS BAG 50 ML IV SCH (11:00)
--- NOTE | 2022-07-15 11:06 | NUR ---
DC PLANNING: [facility] SPOKE WITH MARY CHONGSHANK SANDER, STATED SHE RECEIVED THE REQUEST WILL SUBMIT TO NEUROSURGEON AND SHE WILL CALL BACK. CM TO FOLLOW Addendum: 07/15/22 at 1502 by Ivania Inman RN DC PLANNING: [facility] SPOKE WITH MARY ADAMSON NEUROSURGEON REQUESTING TO DISCUSS WITH DR DAVIS PROVIDE HER DR DAVIS'S PHONE NUMBER. MATTI FROM [facility] PROVIDE THE AUTH FOR [facility] [id number] FOR TRANSPORT [id number] . CM TO FOLLOW Addendum: 07/15/22 at 1633 by Ivania Inman RN DC PLANNING: ARRANGED TRANSPORT WITH [facility] PLACE IT WILL CALL. [facility] # [phone] [facility] WILL CALL WHEN BED AVAILABLE PLS CALL [facility]. CM TO FOLLOW
--- NOTE | 2022-07-15 11:38 | NUR ---
PATIENT HAS BEEN SCREENED AND CATEGORIZED HIGH NUTRITION RISK. PATIENT WILL BE SEEN WITHIN 1-2 DAYS OF ADMISSION. 07/15/[address]
[2022-07-15 12:00] VITALS: BP 135/92
[2022-07-15] MEDS ORDERED: MAG SULF 2000 MG/WATER PREMIX 50 ML IV SCH (13:00)
[2022-07-15] MEDS ORDERED: DEXTROSE 10% 1,000 ML IV SCH (13:25)
--- NOTE | 2022-07-15 14:03 | NUR ---
07/15/22 RD INITIAL ASSESSMENT COMPLETED PLEASE REFER TO NUTRITION ASSESSMENT UNDER CARE ACTIVITY FOR ESTIMATED NUTRITIONAL NEEDS. 1. [facility]UE [facility] 60[facility] DIET TOLERATED 2. MONITOR BLOOD GLUCOSE LEVELS, PO INTAKE AND WEIGHT CHANGES 3. RD TO FOLLOW-UP 3-5 DAYS, MODERATE RISK DOREEN IGLESIAS, SARITA
--- NOTE | 2022-07-15 15:07 | NUR ---
DC PLANNING SW MET WITH PATIENT AT BEDSIDE TO COMPLETE ASSESSMENT. PATIENT REPORTS THAT ADDRESS ON FILE IS HER [place]CLES AND WISHED TO LEAVE ADDRESS IS. PATIENT REPORTS RESIDING WITH DIFFERENT FAMILY FRIENDS.PATIENT IDENTIFIES CHRIS HASKINS, SISTER, EMERGENCY CONTACT AND MDM.PATIENT REPORTS MEETING WITH PCP, DR LEMUS, NEEDED, LAST VISIT; A COUPLE WEEKS AGO. PATIENT REPORTS MEDICATION COMPLIANCE AND DENIES BARRIERS IN ACCESS TO NEEDED MEDICATIONS. PATIENT REPORTS RECEIVING MEDICATIONS FROM FROM [facility] ON [facility] IN [place], WHEN NEEDED. PT REPORTS MH HX OF DEPRESSION. SW ACTIVELY LISTENED SHE PROCESSED RECENT LOSSES. PATIENT DENIES MEETING WITH MENTAL HEALTH THERAPIST AND ACCEPTED MH RESOURCES OFFERED BY SW. 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 PATIENT REPORTS LAST METH USE " COUPLE DAYS/ WEEKS" PATIENT ACCEPTED SUBSTANCE USE RESOURCES OFFERED BY SW. PATIENT REPORTS DX OF DIABETES AND REPORTS, DIABETES IN NOT WELL MANAGED DUE TO ORAL ISSUES THAT MAKE EATING DIFFICULT. PATIENT REPORTS WORKING WITH PCP ON REFERRAL FOR ORAL SURGEON FOR TOOTH EXTRACTIONS NEEDED. PATIENT REPORTS LAPSE IN [place] BENEFITS OF THIS MONTH AND REPORTS WORKING WITH [facility] OFFICE TO REINSTATE. CM CURRENTLY WORKING ON HAVING PATIENT TRANSFERRED.
[2022-07-15 16:00] VITALS: BP 123/82
--- NOTE | 2022-07-15 19:51 | NUR ---
AOX4. Stable VTs. Require morphine 4mg ivp q4h dt chronic back pain. last given about 1800. no fever. no signs of infection. still waiting for bed availability at [facility] for MRI back. Endorse to night manager nurse Prachi to follow up tomorrow.
[2022-07-15 20:00] VITALS: BP 151/91
[2022-07-15] MEDS: INSULIN LANTUS 100 UNITS/ML 10 ML VIAL SUBQ SCH (20:04)
--- NOTE | 2022-07-15 20:04 | NUR ---
PATIENT REPORT RECEIVED FROM DAY SHIFT RN. CARE TAKEN OVER. PATIENT AWAKE ALERT IN BED, TEARFUL STATING SHE IS OVERWHELMED AND HAS A LOT ON HER MIND AND IS STRESSED. PROVIDED COMFORT AND REASSURANCE TO PATIENT TO HELP HER COPE WITH HER STRESS. TOOK PATIENTS BLOOD GLUCOSE, RESULT IS 167, DID NOT COVER INSULIN DUE TO PATIENT HAS BEEN LOW RESULTS DURING THE DAY. PATIENT IS HUNGRY, GAVE TURKEY SANDWICH TO PATIENT. PATIENT IS GOING TO TRANSFER TO [facility] AND REPORT WAS GIVEN TO TOM ANG AT [facility] AND PATIENT WILL BE TRANSFERRED.
--- NOTE | 2022-07-15 21:11 | NUR ---
PATIENT REPORT WAS GIVEN TO EMS AND PATIENT LEFT WITH AMBULANCE SERVICE IN ROUTE TO [facility].
== END 2022-07-15 21:00 | disposition short-term general hospital (02) | DRG 420 ==
LOC: MED 05:02 → MTU 12:13 → MIC 07-14 06:58 → MTU 07-14 18:10 → OBSVTOIN 07-15 11:35
PROVIDERS: ADMIT Student in an Organized Health Care Education/Training Program; ATTEND Student in an Organized Health Care Education/Training Program
DX: E11.65 Type 2 diabetes mellitus with hyperglycemia (principal); E87.20 Acidosis, unspecified; N17.9 Acute kidney failure, unspecified; E11.22 Type 2 diabetes mellitus with diabetic chronic kidney disease; N39.0 Urinary tract infection, site not specified; Z20.822 Contact with and (suspected) exposure to COVID-19; E78.5 Hyperlipidemia, unspecified; Z79.4 Long term (current) use of insulin; E87.6 Hypokalemia; E86.1 Hypovolemia; N18.30 Chronic kidney disease, stage 3 unspecified; G89.29 Other chronic pain; I12.9 Hypertensive chronic kidney disease with stage 1 through stage 4 chronic kidney disease, or unspecified chronic kidney disease
CPT/HCPCS: 96361; 96365; 96366; 96372; 96375; 99291; G0378; 36415; 36600; 71045; 80048; 80053; 80305; 81001; 82009; 82803; 82948; 83605; 83735; 84484; 84702; 85025; 87040; 87081; 87086; 93005; J0610; J1644; J1815; J2270; J3475; J3480; Q0092